=== PATIENT | female | born 1990 | race Caucasian/White ===

== ENCOUNTER 2024-12-07 08:45 | Emergency (ER) | payer OTHER, SELFPAY ==
--- NOTE | ~2024-12-07 | XR_ITS ---
EXAMINATION: XR chest 1V, 12/07/2024 9:28 CDT HISTORY: verify central line placement COMPARISON: No comparisons available. Technique: Single view. Findings: The lungs are clear, no effusion. No pneumothorax. Heart is normal size. Mediastinal and hilar contours are within normal limits. Bony thorax no acute abnormality. Right line terminates in the SVC. Impression: No acute cardiopulmonary abnormality. Reviewed, dictated and finalized at location P. Impression: No acute cardiopulmonary abnormality.
[2024-12-07 08:53] VITALS: BP 96/64; PULSE 80; RESP 16; TEMP 36.8; O2SAT 98
--- OUTSIDE RECORDS SUMMARY | 2024-12-07 08:53 | XMS_ITS | Encounter Summary ---
Author Organization [facility] Address [address] [place] [address] Phone Care Team Providers Care Home Visitor Home Base Head Start Name Role Phone Irina You NP Primary Care Provider [phone] Abi Romo Primary Care Provider [phone] Rich Castillo MD Primary Care Provider [phone] Josefa White RN Unavailable [phone] Encounter Details Date Type Department Care Team (Latest Contact Info) Description 08/09/2016 Orders Only [facility] CONVERSION Scanning, Provider Social History Tobacco Use Types Packs/Day Years Used Date Smoking Tobacco: Never Assessed Comments Unknown Sex and Gender Information Value Date Recorded Sex Assigned at Not on file Legal Sex Female 1:53 AM CDT Gender Identity Not on file Sexual Orientation Not on file documented as of this encounter Plan of Treatment Not on file documented as of this encounter Procedures Procedure Name Priority Date/Time Associated Diagnosis Comments OBSTETRIC/GYNECOLOGY ULTRASONOGRAPHY REPORT 08/09/2016 10:08 AM CDT documented in this encounter Results * OBSTETRIC/GYNECOLOGY ULTRASONOGRAPHY REPORT (08/09/2016 10:08 AM CDT) Anatomical Region Laterality Modality Ultrasound us Provider Scanning IMG OB US PROCEDURES Final Res ult documented in this encounter Visit Diagnoses Not on filedocumented in this encounter Additional Health Concerns Infection Onset Date Last Indicated Resolved Time COVID: Suspected 02/03/2022 02/03/2022 02/03/2022 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
--- OUTSIDE RECORDS SUMMARY | 2024-12-07 08:53 | XMS_ITS ---
Author Organization [facility] Address [address] [place] [address] Care Team Providers Care Grease Refining Supervisor Name Role Phone Rich Castillo MD Primary Care Provider [phone] Home Infusion Status:Closed (Closed) Start date:11/28/2024 Enrollment date:11/28/2024 End date:12/06/2024 Close reason:Transferred to Another Entity Related service episodes:Anti-Infective (Closed) Overview [facility] Continued Care and Services Coordination
--- OUTSIDE RECORDS SUMMARY | 2024-12-07 08:53 | XMS_ITS | Encounter Summary ---
Author Organization [facility] Address [facility] [place] [address] Care Team Providers Care General Helper Name Role Phone Irina You KENZIE Primary Care Provider [phone] Corky Leos MD Unavailable [phone] Encounter Details Date Type Department Care Team (Late st Contact Info) Description 12/15/2018 [facility] at [address] [address] Devan Reyes MA Social History Tobacco Use Types Packs/Day Years Used Date Smoking Tobacco: Every Day Smokeless Tobacco: Never Alcohol Use Standard Drinks/Week Comments No 0 (1 standard drink = 0.6 oz pur e alcohol) AUDIT-C Answer Date Recorded Frequency of Alcohol Consumption Never 03/09/2018 Average Number of Drinks Not on file 019 Frequency of Binge Drinking Not on file 02/21 PHQ-2 Answer Date Recorded PHQ-2 Score 0 05/22/2018 Comments No Sex and Gender Information Value Date Recorded Sex Assigned at Not on file Legal Sex Female 9:27 PM CDT Gender Identity Not on file Sexual Orientation Not on file documented as of this encounter Plan of Treatment Not on file documented as of this encounter Procedures Procedure Name Priority Date/Time Associated Diagnosis Comments CBC (OUTSIDE LAB) Routine 12/14/2018 COMPREHENSIVE METABOLIC PANEL Routine 12/14/2018 LIPID PANEL Routine 12/14/2018 documented in this encounter Results * CBC (OUTSIDE LAB) (12/14/2018) WBC 16.6 HGB 13.1 HCT 43.6 PLT 402 12/14/2018 [facility] Abstract LAB-OUTSIDE/ABSTRACTED Final Result * (ABNORMAL) COMPREHENSIVE METABOLIC PANEL (12/14/2018) SODIUM S/P/B 146 POTASSIUM S/P/B 3.8 CO2 36 CHLORIDE S/P/B 105 GLUCOSE 58 mg/dL CALCIUM S/P/B 11.0 BUN 5 CREATININE S/P/B 1.37(A) 0.5 - 1.0 EGFR NON-AFR. AMER. 46 <=90 ALKALINE PHOSPHATASE S/P/B 130 ALT 31 AST 38 BILIRUBIN TOTAL S/P/B 0.40 ALBUMIN S/P/B 4.2 3.5 - 5.0 TOTAL PROTEIN S/P/B 7.7 GLOBULIN 3.5 12/14/2018 us Doc [facility] Abstract LABORATORY Final Result * LIPID PANEL (12/14/2018) CHOLESTEROL 195 HDL 45 TRIGLYCERIDES 345 LDL (CALCULATED) 81 12/14/2018 us [facility] Abstract LABORATORY Final Result documented in this encounter Visit Diagnoses Not on filedocumented in this encounter Additional Health Concerns Assessment Noted Time PHQ-9 Depression Total Score: 4 08/15/19 19 8:38 AM CDT documented as of this encounter Care Teams General Helper Relationship Specialty Start Date End Date Irina You FNP [address] [place] [id number] PCP - General Nurse Practitioner Family 02/03/18 Corky Leos MD Three [address] [address] Frankie Steel Burner CARDIOVASCULAR DISEASE 11/23/18 documented as of this encounter
--- OUTSIDE RECORDS SUMMARY | 2024-12-07 08:53 | XMS_ITS | Encounter Summary ---
Author Organization [facility] Address [address] [place] [address] Care Team Providers Care Plastic Parts Fabricator Trimmer Name Role Phone Rich Castillo MD Primary Care Provider [phone] Encounter Details Date Type Department Care Team (Late st Contact Info) Description 12/06/2024 Abstract [facility]3] INFECTIOUS DISEASE TOWER [address] [place] [address] Ej Bhatt MD [address] [place] [address] Social History Tobacco Use Types Packs/Day Years Used Date Smoking Tobacco: Former Cigarettes Passive Smoke Exposure: Past Food Insecurity Answer Date Recorded Do you find you are eating l ess than you should because you can t pay for food? No 11/22/2024 Transportation Needs Answer Date Record ed Have you gone without health care because you didn t have a way to get there? Or worry about transportation for future doctor visits, picker machine operator medication, etc.? No 2024 Housing Stability Answer Date Recorded Do you worry you won t have a steady place to sleep or struggle to pay rent or mortgage? No 11/22/2024 Utility Needs Answer Date Recorded Do you have difficulty payin g for utility costs (electric, water or gas bills)? No 11/22/2024 Medication Needs Answer Date Recorded Have you skipped taking medi cation due to cost or worry you can t afford new medications? No 11/22/2024 Feeling Safe Answer Date Recorded Are you in a relationship wi th someone who hurts you emotionally and/or physically? No 11/22/2024 Food Insecurity Answer Date Recorded Patient needs follow up regardin 11/16/2024 Transportation Needs Answer Date Record ed Patient needs follow up regardin 11/16/2024 Utility Needs Answer Date Recorded Patient needs follow up regardin 11/16/2024 Comments No Sex and Gender Information Value Date Recorded Sex Assigned at Not on file Legal Sex Female 7:08 PM CDT Gender Identity Not on file Sexual Orientation Not on file documented as of this encounter Plan of Treatment Upcoming Encounters Date Type Department Care Team (Late st Contact Info) Description 12/25/2024 1:00 PM DECKHAND SPONGE BOAT Office Visit [facility] Gynecologic Oncology Li[address] [facility] [address] [place] [address] Lena Eng, DO [address] [facility] [address] [place] [address] 03/05/2025 10:15 AM DECKHAND SPONGE [employer]AT Office Visit [facility] Oncology and Hematology [facility] [address] [address] [place] [address] [address] documented as of this encounter Visit Diagnoses Not on filedocumented in this encounter Additional Health Concerns Infection Onset Date Last Indicated Resolved Time MRSA 11/20/2024 11/26/2024 documented as of this encounter Care Teams Plastic Parts Fabricator Trimmer Relationship Specialty Start Date End Date Rich Castillo MD [address] [facility] [address] [id number] PCP - General Family Practice 11/16/24 documented as of this encounter
--- OUTSIDE RECORDS SUMMARY | 2024-12-07 08:53 | XMS_ITS ---
Author Organization [facility] Address [address] [place] [address] Care Team Providers Care Director Industrial Nursing Name Role Phone Rich Castillo MD Primary Care Provider [phone] Anti-Infective Status:Closed (Closed) Start date:11/28/2024 Enrollment date:11/28/2024 End date:12/06/2024 Close reason:Transferred to Another Entity Related program episode:Home Infusion (Closed) Overview [facility] Continued Care and Services Coordination
--- OUTSIDE RECORDS SUMMARY | 2024-12-07 08:54 | XMS_ITS | Encounter Summary ---
Author Organization [facility] Address [address] [place] [address] Care Team Providers Care Central Office Operator Name Role Phone Rich Castillo MD Primary Care Provider [phone] Reason for Visit * Reason Onset Date Comments MANUEL Questions 12/04/2024 Encounter Details Date Type Department Care Team (Late st Contact Info) Description 12/04/2024 Telephone [facility] Family Medicine at [address] [place] [address] Rich Castillo MD [address] [place] [address] [address] [place], [place] [id number] MANUEL Questions Social History Tobacco Use Types Packs/Day Years Used Date Smoking Tobacco: Every Day Cigarettes Smokeless Tobacco: Never Comments:trying to quit Alcohol Use Standard Drinks/Week Comments Never 0 (1 standard drink = 0.6 oz pur e alcohol) Social Connection and Isolation Panel Answer Date Recorded In a typical week, how many times do you talk on the phone with family, friends, or neighbors? More than three times a week 02/11/2022 How often do you get togethe r with friends or relatives? More than three times a week 02/11/2022 How often do you attend chur ch or yazidi services? Never 02/11/2022 Do you belong to any clubs o r organizations such as faith groups, unions, fraternal or athletic groups, or school groups? No 02/11/2022 How often do you attend meet ings of the clubs or organizations you belong to? Never 02/11/2022 Are you , , di vorced, , never , or living with a partner? Never 02/11/2022 AUDIT-C Answer Date Recorded Q1: How often do you have a drink containing alcohol? Never 08/29/2024 Q2: How many drinks containi ng alcohol do you have on a typical day when you are drinking? Patient does not drink Frequency of Binge Drinking Not on file 10/2024 Overall Financial Resource Strain (CARDIA) Answe r Date Recorded How hard is it for you to pa y for the very basics like food, housing, medical care, and heating? Somewhat hard 02/11/2022 PHQ-2 Answer Date Recorded PHQ-2 Total Score (If total score is 3 or more points, staff should administer the PHQ-9) 0 11/07/2024 Hunger Vital Sign Answer Date Recorded Within the past 12 months, y ou worried that your food would run out before you got the money to buy more. Sometimes true Within the past 12 months, t he food you bought just didn't last and you didn't have money to get more. Never true PRAPARE - Transportation Answer Date Re corded In the past 12 months, has l ack of transportation kept you from medical appointments or from getting medications? No 01/22 In the past 12 months, has l ack of transportation kept you from meetings, work, or from getting things needed for daily living? No 02/11/2022 Housing Stability Vital Sign Answer Roberto e Recorded In the last 12 months, was t here a time when you were not able to pay the mortgage or rent on time? No 02/11/2022 In the last 12 months, how many places have you lived? 1 02/11/2022 In the last 12 months, was t here a time when you did not have a steady place to sleep or slept in a longterm (including now)? No 02/11/2022 Comments No Sex and Gender Information Value Date Recorded Sex Assigned at Not on file Legal Sex Female 1:53 AM CDT Gender Identity Not on file Sexual Orientation Not on file documented as of this encounter Miscellaneous Notes * Telephone Encounter - Chelsi Pena - 12/04/2024 2:10 PM CDT MANUEL Questions (Message from [facility] Has patient been discharged at time of call? Yes Date Admitted: 11/15 Date Discharged: 12/04 Facility Admitted To: [facility] Reason for Stay? Low platelets If prescribed new medications, do you have any questions or concerns? no Do you have enough medication to get you to your follow-up appointment? yes Since being released do you feel better, the same, or worse? better Date of MANUEL Appointment: 12/11 Do you have transportation to the appointment? yes Additional Comments: n/a Does message need to be routed? No documented in this encounter Plan of Treatment Not on file documented as of this encounter Visit Diagnoses Not on filedocumented in this encounter Care Teams Central Office Operator Relationship Specialty Start Date End Date Rich Castillo MD PCP - General Family Medicine 12/14/21 documented as of this encounter
--- OUTSIDE RECORDS SUMMARY | 2024-12-07 08:54 | XMS_ITS | Clinical Summary ---
Author Organization [facility] Address [address] [place] [address] Care Team Providers Care Geophysical E Logger Name Role Phone Irina You KENZIE Primary Care Provider [phone] Corky Leos MD Unavailable [phone] Allergies Active Allergy Reactions Criticality Noted Date Comments Levofloxacin Unknown,Rash Low 07/15/2016 Reaction: RASH, Penicillins Rash,Unknown,Swelling High 05/09/2014 Reaction: SWELLING, Medications ONETOUCH DELICA LANCETS FINE Misc USE TO TEST BID 6 0 18 Active nystatin powder Apply topically 3 (three) times daily. 11/20/19 17 Active hydrocortisone 5 MG tablet Take 3 tablets (15 mg total) by mouth every morning AND 1 tablet (5 mg total) 3 (three) times daily before meals. 6 05/11/19 19 Active Blood Glucose Calibration (EASY TALK CONTROL) Low Solution 06/06/19 19 Active BASAGLAR KWIKPEN 100 UNIT/ML injection (PEN) Inject 14 Units into the skin 2 (two) times daily. 3 pen 2 08/15/19 19 Active ammonium lactate 12 % lotion RUB IN TWO APPLICATIONS EXT AA QD PRN 3 08/29/19 19 Active triamcinolone 0.1 % ointmentIndication s:Atopic dermatitis, unspecified type Apply topically 2 (two) times daily. 30 g 2 09/28/19 19 Active FLUARIX QUADRIVALENT 0.5 ML injection Inject 0.5 mLs into the muscle. 0 10/04/19 19 Active venlafaxine XR 37.5 MG 24 hr capsule Take 1 capsule (37.5 mg total) by mouth daily. 12/07/19 Active RANITIDINE 300 MG tabletIndications: Gastroesophageal reflux disease, esophagitis presence not specified TAKE 1 TABLET(300 MG) BY MOUTH DAILY 90 tablet 1 02/26/19 20 Active BD PEN NEEDLE LILY U/F 32G X 4 MM MiscIndications:Di abetes insipidus (HHS/HCC) USE WITH INSULIN INJECTION HS 100 each 3 07/05/19 Active Isopropyl Alcohol (ALCOHOL WIPES) 70 % MiscIndications:Di abetes insipidus (HHS/HCC) Apply 1 Application topically 4 (four) times a day. 270 each 3 07/05/19 Active triamterene-hydroC HLOROthiazide 37.5-25 MG tablet Take 1 tablet by mouth daily. 08/06/19 Active levothyroxine 100 MCG tablet Take 100 mcg by mouth every morning. 08/01/19 Active Alcohol Swabs (EASY TOUCH ALCOHOL PREP MEDIUM) 70 % Pads 4 (four) times daily. 07/05/19 Active gabapentin 800 MG tabletIndications: Neuropathy Take 1 tablet (800 mg total) by mouth 3 (three) times daily. 90 tablet 1 09/06/19 20 Active fish oil 1000 MG Cap capsule Take 1,000 mg by mouth daily. Active vitamin D3, cholecalciferol, 1000 UNIT Tab tablet Take 1 tablet by mouth daily. Active vitamin B-12 (CYANOCOBALAMIN) 1000 mcg tablet Take 1,000 mcg by mouth daily. Active FENOFIBRATE 160 MG tabletIndications: Mixed hyperlipidemia Take 1 tablet by mouth every day 30 tablet 11 10/22/19 20 Active atorvastatin 40 MG tabletIndications: Hyperlipidemia Take 1 tablet (40 mg total) by mouth nightly at bedtime. 90 tablet 3 01/08/20 20 Active gabapentin 600 MG tablet 12/16/19 20 Active triamcinolone 0.1 % cream APPLY TO THE BOTTOM OF THE FEET IN THE EVENING 11/22/19 20 Active AMITRIPTYLINE 50 MG tabletIndications: Paresthesia of both legs Take 1 tablet by mouth at bedtime 30 tablet 1 06/07/19 21 Active GLIMEPIRIDE 4 MG tabletIndications: Type 2 diabetes mellitus with diabetic polyneuropathy, without long-term current use of insulin ([facility]/HCC HHS/HCC) Take 1 tablet by mouth daily before breakfast 30 tablet 11 07/15/19 Active ONE TOUCH ULTRA 2 w/Device KitIndications:Typ e 2 diabetes mellitus with diabetic polyneuropathy, without long-term current use of insulin ([facility]) USE TO TEST ONCE EVERY DAY 1 kit 01/23/20 Active Active Problems Problem Noted Date Diagnosed Date Hypercalcemia 10/10/2019 Vitamin B 12 deficiency 09/06/2019 Neuropathy 09/06/2019 Callus of foot 07/05/2019 Non compliance with medical treatment 07/05/2019 Non-compliant patient 07/05/2019 Atopic dermatitis, unspecified type 09/27/2018 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 Menopause 03/09/2018 Secondary adrenal insufficiency 03/09/2018 Hypopituitarism 03/09/2018 Hyperlipidemia 08/23/2017 Malignant tumor of pituitary gland 01/17/2017 Type 2 diabetes mellitus 01/12/2017 Postmenopausal HRT (hormone replacement therapy) 01/12/2017 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 Graham Dating: PNL: O+/I/?/-, HIV NR (Needs HepB surface antigen testing) Pap: neg (03/24/14) GC/CT: neg/neg Urine cx: neg UDS: neg H/H/P: 11.1/32.8/414 on 04/19/14 Hgb solubility: neg Genetics: Anatomy US: GCT: 141 GTT: 77/210/192/161 GBS: neg (04/02/14) Tdap: Flu shot: Breast/Bottle: Contraception: Tobacco use 05/09/2014 Overview (03/09/2018): Overview: Smoking 1/2 ppd for last 2 years Vitamin D deficiency 05/09/2014 Overview (03/09/2018): Overview: Vitamin D, 25-hydroxy 6.1 on 04/02/14; normal range 30-100 Resolved Problems Problem Noted Date Diagnosed Date Resolved Date Hypertriglyceridemia 05/10/2018 020 Pituitary adenoma 03/09/2018 10/10/2019 Secondary hypocortisolism 11/19/2016 Hypothyroidism 07/22/2016 10/10/2019 Gestational diabetes 05/09/2014 020 Overview (03/09/2018): Overview: GCT: 141 GTT: 77/210/192/161 HgbA1c: 5.6 on 04/02/14 Immunizations Immunization Administration Dates Next Due Dtp 12/10/1994, 2,09/24/1990,1990,01/28/1990 Fluarix (IIV4) 10/03/2018 Fluzone 6 Months+ Quad (0.5 mL Prefilled Syringe) 12/12/2016 Hepatitis B 04/15/2003,11/23/2002,10/24/2002 Hib (Generic) 05/08/1991,09/26/1990,04/20/1990 IPV/OPV 12/10/1994,08/06/1991 Influenza Adult (Generic) 02/02/2018,12/12/2016 MMR 12/10/1994,05/08/1991 Opv 04/20/1990,01/28/1990 Tdap (Adacel) 05/29/2014 Tdap (Boostrix) 04/18/2014 Family History Medical History Relation Comments No Known Problems Father Blood Disease Mother Diabetes Paternal Aunt Diabetes Paternal Uncle Relation Status Comments Father Alive Mother Alive Paternal Aunt Paternal Uncle Alive Social History Tobacco Use Types Packs/Day Years Used Date Smoking Tobacco: Every Day Cigarettes 1 4 Smokeless Tobacco: Never Alcohol Use Standard Drinks/Week Comments No 0 (1 standard drink = 0.6 oz pur e alcohol) AUDIT-C Answer Date Recorded Frequency of Alcohol Consumption Never 03/09/2018 Average Number of Drinks Not on file 019 Frequency of Binge Drinking Not on file 02/21 PHQ-2 Answer Date Recorded PHQ-2 Score - If the patient scores above 3, please move on to questions 3-9 0 10/10/2019 Comments No Sex and Gender Information Value Date Recorded Sex Assigned at Not on file Legal Sex Female 9:27 PM CDT Gender Identity Not on file Sexual Orientation Not on file Last Filed Vital Signs Vital Sign Reading Time Taken Comments Blood Pressure 118/76 10/10/2019 10:01 AM CDT Pulse 73 10/10/2019 10:01 AM CDT Temperature 36 C (96.8 F) 10/10/2019 10:01 AM CDT Respiratory Rate 20 10/10/2019 10:0 1 AM CDT Oxygen Saturation 95% 10/10/2019 10: 01 AM CDT Inhaled Oxygen Concentration - - Weight 83.8 kg (184 lb 12.8 oz) 020 10:01 AM CDT Height 152.4 cm (5') 10/10/2019 10:01 AM CDT Body Mass Index 36.09 10/10/2019 10:01 AM CDT Plan of Treatment Health Maintenance Due Date Last Done Comments Cervical Cancer Screening Pap Smear (Age 30 to 64) Every 3 Years 1989 Kidney Health Evaluation 1989 Annual Physical 1992 Diabetes: Retinopathy Eye Exam 11/16/2007 Hepatitis C 11/16/2007 Pneumococcal Vaccine: Pediatrics (0 to 5 Years) and At-Risk Patients (6 to 49 Years) (1 of 2 - PCV) 2008 HPV Vaccines (1 - 3-dose SCDM series) 2016 Cervical Cancer Screening Pap with HPV Testing (Age 30 to 64) Every 5 Years 11/16/2019 Cervical Cancer Screening with HPV 11/16/2019 Hemoglobin A1C 04/11/2020 10/10/2019, 06/21, 08/14/2018 Lipid Panel 09/05/2020 09/06/2019, 06/21, 07/05/2019, Additional history exists DTaP, Tdap and Td Vaccines (3 - Td or Tdap) 05/29/2024 05/29/2014, 04/18/2014, 12/10/1994, Additional history exists COVID-19 Vaccine ( season) 2024 Influenza Adult (#1) 2024 12/06/2018, 10/03/2018, 02/02/2018, Additional history exists Hepatitis B Vaccines Completed 04/15/2003, 11/23/2002, 10/24/2002 Meningococcal B Vaccine Aged Out No l onger eligible based on patient's age to complete this topic Meningococcal Vaccine Aged Out No jennifer saurav eligible based on patient's age to complete this topic RSV Immunizations Under 20 Months Aged Out No longer eligible based on patient's age to complete this topic Procedures Procedure Name Priority Date/Time Associated Diagnosis Comments HEMOGLOBIN, GLYCOSYLATED Routine 10/10/2019 10:05 AM CDT Type 2 diabetes mellitus with diabetic polyneuropathy, without long-term current use of insulin LIPID PANEL Routine 09/06/2019 11:03 AM CDT Mixed hyperlipidemia from Last 3 Months or Most Recently Relevant to Health Maintenance Results * HEMOGLOBIN, GLYCOSYLATED (10/10/2019 10:05 AM CDT) HGB A1C 11.1 % -[facility] (3), [facility] 10/10/2019 10:0 5 AM CDT Logan Reid MD LABORATORY Final Result [facility] ([facility]), [facility] [address] [place] [address], * (ABNORMAL) LIPID PANEL (09/06/2019 11:03 AM CDT) CHOLESTEROL 351(H) <200 MG/DL 09/06/2019 7:44 PM CDT [facility] TRIGLYCERIDES 326(H) <150 MG/DL 09/06/2019 7:44 PM CDT [facility] HDL 37(L) >40.0 MG/DL 09/06/2019 7:44 PM CDT [facility] LDL (CALCULATED) 249(H) <100 MG/DL 09/06/2019 7:44 PM CDT [facility] NON HDL CHOLESTEROL 314(H) <130 MG/DL 09/06/2019 7:44 PM CDT [facility] CHOL/HDL RATIO 9.5(H) 0.0 - 4.5 09/06/2019 7:44 PM CDT [facility] VLDL CALCULATION 65(H) 5 - 55 MG/DL 09/06/2019 7:44 PM CDT [facility] LIPID INTERPRETATION 09/06/2019 7:44 PM T [facility] Comment: [facility] CONCENSUS REPORT RECOMMENDATIONS: ADULT CHILD LOW RISK: CHOLESTEROL <200 <170 TRIGLYCERIDE <150 --- HDL >=60 --- LDL <100 <110 BORDERLINE: CHOLESTEROL 200-239 170-199 TRIGLYCERIDE 150-199 --- HDL 40-59 --- LDL 100-159 110-129 HIGH RISK: CHOLESTEROL >=240 >=200 TRIGLYCERIDE >=200 --- HDL <40 --- LDL >=160 >=130 09/06/2019 11:0 3 AM CDT Irina You FISHING REEL ASSEMBLER LABORATORY Final Result [facility] [address] [id number], from Last 3 Months or Most Recently Relevant to Health Maintenance Insurance [employer] Care Teams Geophysical E Logger Relationship Specialty Start Date End Date Irina You FNP [address] [place] [phone] PCP - General Nurse Practitioner Family 02/03/18 Corky Leos MD [facility] [address] [place] [address] [place] Cutter Tender CARDIOVASCULAR DISEASE 11/23/18
--- OUTSIDE RECORDS SUMMARY | 2024-12-07 08:54 | XMS_ITS | Encounter Summary ---
Author Organization [facility] Address [address] [place] [address] Care Team Providers Care Clinical Program Director Name Role Phone Irina You NP Primary Care Provider [phone] Abi Romo Primary Care Provider [phone] Rich Castillo MD Primary Care Provider Josefa White RN Unavailable [phone] Encounter Details Date Type Department Care Team (Late st Contact Info) Description 09/11/2019 Telephone [facility] [place] [address] Clark Blanco MD [address] [place], [place] [id number] Social History Tobacco Use Types Packs/Day Years Used Date Smoking Tobacco: Former Comments Unknown Sex and Gender Information Value [...] COVID: Suspected 02/03/2022 02/03/2022 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
--- OUTSIDE RECORDS SUMMARY | 2024-12-07 08:54 | XMS_ITS | Clinical Summary ---
Author Organization [facility] Address [address] [place] [address] Care Team Providers Care [facility] Owner Name Role Phone Irina You APRN-PALOMO Primary Care Provider [phone] Source Comments [facility],non-owned Affiliates and Associated Physician Practices is amultiple site organization consisting of ambulatory clinics and hospital sitesin [place], [place], [place]. This disclosure is being madepursuant to the Care Everywhere program and may not contain all information available regarding this patient. Last updated 17.[facility] Allergies Active Allergy Reactions Criticality Noted Date Comments Penicillins Rash Low 05/09/2014 Medications * Be aware that medications may not be up to date on this document. Alwaysverify current medications with the patient. Vit-Fe Fumarate-FA ( PLUS) 27-1 MG tablet Take 1 Tab by mouth once daily. Active Active Problems Patient Care Coordination No te Formatting of this note migh t be different from the original. [facility] 2014 Problem Noted Date Diagnosed Date Supervision of high-risk 05/09/2014 Overview (05/09/2014): Consult from Dr. Graham Dating: PNL: O+/I/?/-, HIV NR (Needs HepB surface antigen testing) Pap: neg (03/24/14) GC/CT: neg/neg Urine cx: neg UDS: neg H/H/P: 11.1/32.8/414 on 04/19/14 Hgb solubility: neg Genetics: Anatomy US: GCT: 141 GTT: 77/210/192/161 GBS: neg (04/02/14) Tdap: Flu shot: Breast/Bottle: Contraception: Gestational diabetes 05/09/2014 Overview (05/09/2014): GCT: 141 GTT: 77/210/192/161 HgbA1c: 5.6 on 04/02/14 Vitamin D deficiency 05/09/2014 Overview (05/09/2014): Vitamin D, 25-hydroxy 6.1 on 04/02/14; normal range 30-100 Tobacco use 05/09/2014 Overview (05/09/2014): Smoking 1/2 ppd for last 2 years Ovarian cyst, left 05/09/2014 Overview (05/09/2014): Large complex cyst measuring 17 x 10 x 9 mm on 04/08/14 US Late care 05/09/2014 Family History Medical History Relation Name Comments Diabetes Maternal Aunt Diabetes Paternal Aunt Relation Name Status Comments Maternal Aunt Paternal Aunt Social History Tobacco Use Types Packs/Day Years Used Date Smoking Tobacco: Every Day Cigarettes 0.5 12.8 Started: 02/22/2012 Smokeless Tobacco: Never Alcohol Use Standard Drinks/Week Comments No 0 (1 standard drink = 0.6 oz pur e alcohol) Comments No Sex and Gender Information Value Date Recorded Sex Assigned at Not on file 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 Gender Identity Not on file Sexual Orientation Not on file Plan of Treatment Health Maintenance Due Date Last Done Comments HIV SCREENING 2004 HEPATITIS C SCREENING 11/11/2007 DTAP/TDAP/TD VACCINES (1 - Tdap) 2008 HEPATITIS B VACCINE (1 of 3 - 19+ 3-dose series) 2008 PNEUMOCOCCAL VACCINE (1 of 2 - PCV) 2008 PAP SMEAR 2010 HPV VACCINE (1 - 3-dose SCDM series) 2016 DEPRESSION SCREENING 02/22/2024 COVID-19 VACCINE (1 - 2023-2 5 season) 2024 INFLUENZA VACCINE (#1) 2024 ZOSTER VACCINE (1 of 2) 11/16/2039 HIB VACCINE Aged Out No longer eligi ble based on patient's age to complete this topic MENINGOCOCCAL (Group B) VACC INE SHARED DECISION-MAKING Aged Out No longer eligibl e based on patient's age to complete this topic MENINGOCOCCAL GROUPS A/C/Y/W VACCINE Aged Out No longer eligible b ased on patient's age to complete this topic Insurance MEDICAID - [place] Care Teams [facility] Owner Relationship Specialty Start Date End Date Irina You APRN-CNP [address] [place] [address] PCP - General 06/15/19
--- OUTSIDE RECORDS SUMMARY | 2024-12-07 08:54 | XMS_ITS | Clinical Summary ---
Author Organization [facility] Address [address] [place] [address] Phone Care Team Providers Care Educational Therapy Teacher Name Role Phone Rich Castillo MD Primary Care Provider [phone] Allergies Active Allergy Reactions Criticality Noted Date Comments Levofloxacin Rash Low 11/16/2024 Medications gabapentin (NEURONTIN) 600 mg tablet Take 600 mg by mouth 3 times daily. Active levothyroxine 88 mcg tablet Take 88 mcg by mouth daily in the morning. Active atorvastatin (LIPITOR) 20 mg tablet Take 20 mg by mouth daily. Active hydrocortisone (CORTEF) 5 mg Tablet TAKE 2 TABLETS BY MOUTH EVERY MORNING AND 1 TABLET BY MOUTH EVERY NIGHT AT BEDTIME 5 Active desmopressin (DDAVP) 0.2 mg Tablet Take 1 Tablet (0.2 mg) by mouth 3 times daily. 90 Tablet 12/04/2024 11:44 AM CDT 5 Active apixaban (ELIQUIS) 5 mg tablet Take 1 Tablet (5 mg) by mouth 2 times daily. 60 Tablet 2 12/04/2024 11:44 AM CDT 5 Active pantoprazole (PROTONIX) 40 mg Tablet, Delayed Release (E.C.) Take 1 Tablet (40 mg) by mouth daily before breakfast. 30 Tablet 12/04/2024 11:44 AM CDT 5 Active predniSONE (DELTASONE) 20 mg tablet Take 1 Tablet (20 mg) by mouth daily with breakfast for 3 days, THEN 0.5 Tablet (10 mg) daily with breakfast for 7 days. 7 Tablet 12/04/2024 11:44 AM CDT 5 12/15/19 25 Active saccharomyces boulardii (FLORASTOR) 250 mg Capsule Take 1 Capsule (250 mg) by mouth 2 times daily. 60 Capsule 12/04/2024 11:44 AM CDT Active multivitamin with folic acid (Therems Multivitamin) 400 mcg Tablet tablet Starting 12/05: Take 1 Tablet by mouth daily. 30 Tablet 12/04/2024 11:44 AM CDT Active DAPTOmycin (CUBICIN) 345 mg for home infusion Inject 1 Dose by intravenous injection every 24 hours for 34 days. 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 Secondary adrenal insufficiency 11/16/2024 DI (diabetes insipidus) 11/16/2024 Resolved Problems Problem Noted Date Diagnosed Date Resolved Date MRSA bacteremia 11/22/2024 12/04/2024 Phlebitis 11/22/2024 12/04/2024 Acute cystitis without hematuria 11/21/2024 12/04/2024 Abnormal finding on urinalysis 11/20/2024 12/04/2024 Acute blood loss anemia 11/17/202411/21 Thrombocytopenia 11/16/2024 12/04/2024 Encounters Date Type Department Care Team Description 12/06/2024 Abstract [facility] INFECTIOUS DISEASE [place] [address] [place] [phone] Ej Bhatt MD 12/05/2024 Telephone [facility] DISE[facility] [place] [facility] [address] [place] [address] Ej Bhatt MD Medication Question 12/04/2024 External Device Data STL ABSTRACTION Provider, Abstract 12/04/2024 Orders Only [facility] Oncology and Hematology [address] [place] [address] Lulú Rodriguez MD Acute deep vein thrombosis (DVT) of axillary vein of right upper extremity (Primary Dx) 11/27/2024 External Device Data ST[facility] ABSTRACTION Provider, Abstract 11/23/2024 Results Follow-Up [facility] [address] [place] [address] Eusebio Olson PHARMACIST VANCOMYCIN LEVEL TROUGH, BONE MARROW ASPIRATION & BIOPSY 11/22/2024 Travel 11/20/2024 3:00 PM CDT Anesthesia Event [facility] Interventional Radiology S [facility] [address] [place] [address] Herrera Zhang MD 11/20/2024 External Device Data ST[facility] ABSTRACTION Provider, Abstract 11/20/2024 External Device Data [facility] ABSTRACTION Provider, Abstract 11/20/2024 External Device Data [facility] ABSTRACTION Provider, Abstract 2024 11:13 PM CDT - 12/04/2024 1:04 PM CDT Hospital En[facility] [address] [place] [address] Nelson Schroeder MD Nguyen, Steven, MD Bockerstett, Jennifer E, DO Gojenny, MD [facility], Thrombocytopenia Discharge Disposition: Home or Self Care from Last 3 Months Social History Tobacco Use Types Packs/Day Years Used Date Smoking Tobacco: Former Cigarettes Passive Smoke Exposure: Past Tobacco Cessation:Counseling Given: Not Answered Food Insecurity Answer Date Recorded Do you find you are eating l ess than you should because you can t pay for food? No 11/22/2024 Transportation Needs Answer Date Record ed Have you gone without health care because you didn t have a way to get there? Or worry about transportation for future doctor visits, orange picker medication, etc.? No 2024 Housing Stability Answer [...] Sign Reading Time Taken Comments Blood Pressure 112/69 12/04/2024 8:07 AM CDT Pulse 81 12/04/2024 11:35 AM CDT Temperature 37.3 C (99.1 F) 12/04/2024 8:07 AM CDT Respiratory Rate 18 12/04/2024 11:35 AM CDT Oxygen Saturation 92% 12/04/2024 11:35 AM CDT Inhaled Oxygen Concentration - - Weight 57.2 kg (126 lb) 12/04/2024 5:07 AM CDT Height 149.9 cm (4' 11) 12/02/2024 2:31 AM CDT Body Mass Index 25.45 12/02/2024 2:31 AM CDT Plan of Treatment Upcoming Encounters Date Type Department Care Team (Late st Contact Info) Description 12/25/2024 1:00 PM WHEEL GRINDER Office Visit [facility] Gynecologic Oncology [place] [address] [place] [address] Lena Eng DO [address] [place] [address] 03/05/2025 10:15 AM WHEEL GRINDER Office Visit [facility] Oncology and Hematology [place] [address] [facility] [address] [address] Lulú [place] [address] [facility] [address] [place] [address] Health Maintenance Due Date Last Done Comments DIABETES ANNUAL FOOT EXAM 11/16/2007 DIABETES ANNUAL RETINAL EXAM 11/16/2007 DIABETES MICROALBUMIN ANNUAL SCREEN 11/16/2007 LDL CHOLESTEROL ANNUAL 11/16/2007 HPV/Cotest (21-29) 2010 HPV VACCINES (1 - 3-dose SCD M series) 2016 CERVICAL CANCER SCREENING 11/16/2019 HPV/Cotest (30-65) 11/16/2019 PAP SMEAR 11/16/2019 DTAP/TDAP/TD VACCINES (8 - T d or Tdap) 05/29/2024 05/29/2014, 04/18/2014, 12/10/1994, Additional history exists INFLUENZA VACCINE (#1) 2024 , 04/22/2021, 12/06/2018, Additional history exists DIABETES HBA1C Q 6 MONTHS 05/16/20252024, 07/26/2024, 02/01/2024, Additional history exists Preventative Visit-Managed Medicaid 08/30/2025 08/29/2024 HEPATITIS B VACCINES Completed 04/15/2003, 11/23/2002, 10/24/2002 Procedures Procedure Name Priority Date/Time Associated Diagnosis Comments TELEMETRY REPORT 12/05/2024 5:28 PM CDT TELEMETRY REPORT 12/05/2024 5:28 PM CDT POC GLUCOSE Routine 12/04/2024 8:12 AM CDT DIFFERENTIAL, MANUAL Routine 12/04/2024 5:00 AM CDT CBC WITH DIFFERENTIAL Routine 12/04/2024 5:00 AM CDT BASIC METABOLIC PANEL Routine 12/04/2024 5:00 AM CDT POC GLUCOSE Routine 12/04/2024 2:57 AM CDT POC GLUCOSE Routine 12/03/2024 8:36 PM CDT POC GLUCOSE Routine 12/03/2024 5:35 PM CDT POC GLUCOSE Routine 12/03/2024 12:13 PM CDT IR VENOUS ACCESS Pending Discharge 12/03/2024 10:29 AM CDT POC GLUCOSE Routine 12/03/2024 8:13 AM CDT POC GLUCOSE Routine 12/03/2024 4:14 AM CDT CBC WITH DIFFERENTIAL Routine 12/03/2024 1:41 AM CDT BASIC METABOLIC PANEL Routine 12/03/2024 1:41 AM CDT POC GLUCOSE Routine 12/03/2024 12:19 AM CDT POC GLUCOSE Routine 12/02/2024 9:13 PM CDT POC GLUCOSE Routine 12/02/2024 5:10 PM CDT POC GLUCOSE Routine 12/02/2024 12:16 PM CDT POC GLUCOSE Routine 12/02/2024 11:38 AM CDT POC GLUCOSE Routine 12/02/2024 11:01 AM CDT POC GLUCOSE Routine 12/02/2024 10:31 AM CDT POC GLUCOSE Routine 12/02/2024 10:10 AM CDT CBC WITH DIFFERENTIAL Routine 12/02/2024 1:37 AM CDT BASIC METABOLIC PANEL Routine 12/02/2024 1:37 AM CDT POC GLUCOSE Routine 12/01/2024 11:53 PM CDT POC GLUCOSE Routine 12/01/2024 6:07 PM CDT POC GLUCOSE Routine 12/01/2024 12:42 PM CDT POC GLUCOSE Routine 12/01/2024 8:31 AM CDT POC GLUCOSE Routine 12/01/2024 2:12 AM CDT CBC WITH DIFFERENTIAL Routine 12/01/2024 1:30 AM CDT BASIC METABOLIC PANEL Routine 12/01/2024 1:30 AM CDT POC GLUCOSE Routine 11/30/2024 9:04 PM CDT POC GLUCOSE Routine 11/30/2024 6:28 PM CDT TRANSFUSE PACKED RED BLOOD CELLS Routine 11/30/2024 1:57 PM CDT POC GLUCOSE Routine 11/30/2024 1:04 PM CDT TYPE AND SCREEN Routine 11/30/2024 11:29 AM CDT POC GLUCOSE Routine 11/30/2024 8:10 AM CDT PREPARE RED BLOOD CELLS Routine 11/30/2024 7:13 AM CDT DIFFERENTIAL, MANUAL Routine 11/30/2024 6:14 AM CDT CBC WITH DIFFERENTIAL Routine 11/30/2024 6:14 AM CDT BASIC METABOLIC PANEL Routine 11/30/2024 6:14 AM CDT POC GLUCOSE Routine 11/29/2024 10:35 PM CDT POC GLUCOSE Routine 11/29/2024 6:14 PM CDT POC GLUCOSE Routine 11/29/2024 1:26 PM CDT POC GLUCOSE Routine 11/29/2024 7:03 AM CDT DIFFERENTIAL, MANUAL Routine 11/29/2024 5:53 AM CDT CBC WITH DIFFERENTIAL Routine 11/29/2024 5:53 AM CDT BASIC METABOLIC PANEL Routine 11/29/2024 5:53 AM CDT BLOOD CULTURE Routine 11/29/2024 5:53 AM CDT BLOOD CULTURE Routine 11/29/2024 5:53 AM CDT BLOOD CULTURE Routine 11/29/2024 5:53 AM CDT BLOOD CULTURE Routine 11/29/2024 5:53 AM CDT POC GLUCOSE Routine 11/29/2024 5:51 AM CDT POC GLUCOSE Routine 11/29/2024 2:13 AM CDT POC GLUCOSE Routine 11/29/2024 12:17 AM CDT POC GLUCOSE Routine 11/28/2024 10:49 PM CDT POC GLUCOSE Routine 11/28/2024 6:26 PM CDT POC GLUCOSE Routine 11/28/2024 12:57 PM CDT POC GLUCOSE Routine 11/28/2024 10:21 AM CDT CK Routine 11/28/2024 3:27 AM CDT C-REACTIVE PROTEIN Routine 11/28/2024 3: 27 AM CDT DIFFERENTIAL, MANUAL Routine 11/28/2024 3:27 AM CDT CBC WITH DIFFERENTIAL Routine 11/28/2024 3:27 AM CDT BASIC METABOLIC PANEL Routine 11/28/2024 3:27 AM CDT POC GLUCOSE Routine 11/27/2024 8:43 PM CDT POC GLUCOSE Routine 11/27/2024 5:31 PM CDT POC GLUCOSE Routine 11/27/2024 1:45 PM CDT TELEMETRY REPORT 11/27/2024 12:0 2 PM CDT POC GLUCOSE Routine 11/27/2024 10:30 AM CDT POC GLUCOSE Routine 11/27/2024 9:54 AM CDT CBC WITH DIFFERENTIAL Routine 11/27/2024 5:31 AM CDT BASIC METABOLIC PANEL Routine 11/27/2024 5:31 AM CDT POC GLUCOSE Routine 11/26/2024 10:50 PM CDT POC GLUCOSE Routine 11/26/2024 6:56 PM CDT POC GLUCOSE Routine 11/26/2024 5:41 PM CDT US EXT NON VASC LTD RT Stat 11/26/2024 4:36 PM CDT POC GLUCOSE Routine 11/26/2024 11:40 AM CDT POC GLUCOSE Routine 11/26/2024 10:36 AM CDT BLOOD CULTURE Routine 11/26/2024 2:15 AM CDT BLOOD CULTURE Routine 11/26/2024 2:15 AM CDT DIFFERENTIAL, MANUAL Routine 11/26/2024 2:14 AM CDT CBC WITH DIFFERENTIAL Routine 11/26/2024 2:14 AM CDT BASIC METABOLIC PANEL Routine 11/26/2024 2:14 AM CDT BLOOD CULTURE Routine 11/26/2024 2:06 AM CDT BLOOD CULTURE Routine 11/26/2024 2:06 AM CDT MRI THORACIC LUM W WO CONT Routine 11/26/2024 12:27 AM CDT POC GLUCOSE Routine 11/25/2024 8:48 PM CDT VANCOMYCIN LEVEL TROUGH Timed Study 11/25/2024 7:45 PM CDT POC GLUCOSE Routine 11/25/2024 5:34 PM CDT POC GLUCOSE Routine 11/25/2024 1:31 PM CDT BLOOD CULTURE Routine 11/25/2024 11:44 AM CDT BLOOD CULTURE Routine 11/25/2024 11:44 AM CDT POC GLUCOSE Routine 11/25/2024 9:22 AM CDT POC GLUCOSE Routine 11/25/2024 9:19 AM CDT BLOOD CULTURE Routine 11/25/2024 8:46 AM CDT BLOOD CULTURE Routine 11/25/2024 8:46 AM CDT DIFFERENTIAL, MANUAL Routine 11/25/2024 2:35 AM CDT CBC WITH DIFFERENTIAL Routine 11/25/2024 2:35 AM CDT BASIC METABOLIC PANEL Routine 11/25/2024 2:35 AM CDT POC GLUCOSE Routine 11/25/2024 1:00 AM CDT POC GLUCOSE Routine 11/24/2024 10:45 PM CDT POC GLUCOSE Routine 11/24/2024 9:01 PM CDT POC GLUCOSE Routine 11/24/2024 4:36 PM CDT POC GLUCOSE Routine 11/24/2024 1:37 PM CDT POC GLUCOSE Routine 11/24/2024 8:44 AM CDT CBC WITH DIFFERENTIAL Routine 11/24/2024 2:36 AM CDT BASIC METABOLIC PANEL Routine 11/24/2024 2:36 AM CDT POC GLUCOSE Routine 11/23/2024 10:27 PM CDT POC GLUCOSE Routine 11/23/2024 6:11 PM CDT VANCOMYCIN LEVEL TROUGH Timed Study 11/23/2024 4:25 PM CDT POC GLUCOSE Routine 11/23/2024 2:35 PM CDT PTT Routine 11/23/2024 11:20 AM CDT ECHO COMPLETE Routine 11/23/2024 9:52 AM CDT US DOPPLER VENOUS ARM BILATERAL Routine 11/23/2024 9:09 AM CDT POC GLUCOSE Routine 11/23/2024 7:42 AM CDT POC GLUCOSE Routine 11/23/2024 3:07 AM CDT CBC WITH DIFFERENTIAL Routine 11/23/2024 1:42 AM CDT BASIC METABOLIC PANEL Routine 11/23/2024 1:42 AM CDT BLOOD CULTURE Routine 11/23/2024 1:42 AM CDT BLOOD CULTURE Routine 11/23/2024 1:42 AM CDT BLOOD CULTURE Routine 11/23/2024 1:42 AM CDT BLOOD CULTURE Routine 11/23/2024 1:42 AM CDT POC GLUCOSE Routine 11/22/2024 11:20 PM CDT POC GLUCOSE Routine 11/22/2024 10:34 PM CDT POC GLUCOSE Routine 11/22/2024 5:16 PM CDT POC GLUCOSE Routine 11/22/2024 12:50 PM CDT POC GLUCOSE Routine 11/22/2024 8:27 AM CDT DIFFERENTIAL, MANUAL Routine 11/22/2024 4:56 AM CDT LACTATE DEHYDROGENASE Routine 11/22/2024 4:56 AM CDT CBC WITH DIFFERENTIAL Routine 11/22/2024 4:56 AM CDT BASIC METABOLIC PANEL Routine 11/22/2024 4:56 AM CDT POC GLUCOSE Routine 11/21/2024 9:27 PM CDT POC GLUCOSE Routine 11/21/2024 6:12 PM CDT HIV DETECTION W/REFLX CONFIRMATION Routine 11/21/2024 5:46 PM CDT BLOOD CULTURE Routine 11/21/2024 5:46 PM CDT BLOOD CULTURE Routine 11/21/2024 5:46 PM CDT BLOOD CULTURE MRSA/MSSA PCR PANEL Routine 11/21/2024 4:23 PM CDT BLOOD CULTURE Routine 11/21/2024 4:23 PM CDT BLOOD CULTURE Routine 11/21/2024 4:23 PM CDT POC GLUCOSE Routine 11/21/2024 1:40 PM CDT POC GLUCOSE Routine 11/21/2024 8:46 AM CDT HEPATIC FUNCTION PANEL Routine 11/21/2024 7:03 AM CDT CBC WITH DIFFERENTIAL Routine 11/21/2024 7:03 AM CDT BASIC METABOLIC PANEL Routine 11/21/2024 7:03 AM CDT POC GLUCOSE Routine 11/20/2024 9:12 PM CDT POC GLUCOSE Routine 11/20/2024 5:43 PM CDT IR BIOPSY BONE MARROW Routine 11/20/2024 3:22 PM CDT BONE MARROW ASPIRATION & BIOPSY Pathology 11/20/2024 3:19 PM CDT CANCER ANTIGEN 19-9 Routine 11/20/2024 2 :49 PM CDT CEA Routine 11/20/2024 2:49 PM CDT CANCER ANTIGEN 125 Routine 11/20/2024 2: 49 PM CDT BASIC METABOLIC PANEL Routine 11/20/2024 2:[address] ABDOMEN PELVIS W CONTRAST Pending Discharge 11/20/2024 2:09 PM CDT POC GLUCOSE Routine 11/20/2024 12:00 PM CDT ZINC LEVEL Routine 11/20/2024 10:15 AM CDT COPPER LEVEL Routine 11/20/2024 10:15 AM CDT POC GLUCOSE Routine 11/20/2024 9:09 AM CDT C-REACTIVE PROTEIN Routine 11/20/2024 4: 30 AM CDT CBC WITH DIFFERENTIAL Routine 11/20/2024 4:30 AM CDT BASIC METABOLIC PANEL Routine 11/20/2024 4:30 AM CDT URINALYSIS W/REFLEX MICROSCOPIC Routine 11/20/2024 12:23 AM CDT URINE CULTURE Routine 11/20/2024 12:23 AM CDT HCG QUALITATIVE, URINE Routine 11/20/2024 12:21 AM CDT POC GLUCOSE Routine 11/19/2024 9:29 PM CDT POC GLUCOSE Routine 11/19/2024 1:47 PM CDT US VENOUS DOPPLER LEG BILATERAL Routine 11/19/2024 10:13 AM CDT POC GLUCOSE Routine 11/19/2024 8:00 AM CDT DIFFERENTIAL, MANUAL Routine 11/19/2024 4:51 AM CDT CBC WITH DIFFERENTIAL Routine 11/19/2024 4:51 AM CDT BASIC METABOLIC PANEL Routine 11/19/2024 4:51 AM CDT POC GLUCOSE Routine 11/18/2024 10:09 PM CDT POC GLUCOSE Routine 11/18/2024 5:27 PM CDT POC GLUCOSE Routine 11/18/2024 11:58 AM CDT TRANSFUSE PACKED RED BLOOD CELLS Routine 11/18/2024 9:44 AM CDT POC GLUCOSE Routine 11/18/2024 8:40 AM CDT DIFFERENTIAL, MANUAL Routine 11/18/2024 5:42 AM CDT CBC WITH DIFFERENTIAL Routine 11/18/2024 5:42 AM CDT BASIC METABOLIC PANEL Routine 11/18/2024 5:42 AM CDT T4 FREE Routine 11/18/2024 5:42 AM CDT POC GLUCOSE Routine 11/17/2024 9:25 PM CDT POC GLUCOSE Routine 11/17/2024 4:00 PM CDT POC GLUCOSE Routine 11/17/2024 11:43 AM CDT DIC PROFILE Routine 11/17/2024 10:15 AM CDT EBV ANTIBODY PANEL Routine 11/17/2024 10 :15 AM CDT CMV IGG AND IGM ANTIBODIES Routine 11/17/2024 10:15 AM CDT POC GLUCOSE Routine 11/17/2024 8:56 AM CDT DIFFERENTIAL, MANUAL Routine 11/17/2024 3:07 AM CDT BASIC METABOLIC PANEL Routine 11/17/2024 3:07 AM CDT CBC WITH DIFFERENTIAL Routine 11/17/2024 3:07 AM CDT POC GLUCOSE Routine 11/16/2024 11:01 PM CDT POC GLUCOSE Routine 11/16/2024 7:21 PM CDT CBC WITH DIFFERENTIAL Timed Study 11/16/2024 4:00 PM CDT BASIC METABOLIC PANEL Routine 11/16/2024 4:00 PM CDT VITAMIN B6 LEVEL Routine 11/16/2024 4:00 PM CDT VITAMIN B1 LEVEL Routine 11/16/2024 4:00 PM CDT VITAMIN C LEVEL Routine 11/16/2024 4:00 PM CDT HEPATITIS C ANTIBODY Routine 11/16/2024 4:00 PM CDT HEPATITIS B SURFACE ANTIGEN Routine 11/16/2024 4:00 PM CDT HEPATITIS B CORE AB TOTAL Routine 11/16/2024 4:00 PM CDT PTT MIXING TEST Routine 11/16/2024 4:00 PM CDT FACTOR VIII ASSAY Routine 11/16/2024 4:0 0 PM CDT CARDIOLIPIN IGG/IGM Routine 11/16/2024 4 :00 PM CDT LUPUS ANTICOAGULANT W/REFLEX CONFIRMATION Routine 11/16/2024 4:00 PM CDT LACTATE DEHYDROGENASE Routine 11/16/2024 4:00 PM CDT POC GLUCOSE Routine 11/16/2024 1:41 PM CDT XR CHEST PA OR AP 1 VW Stat 11/16/2024 9:28 AM CDT TRANSFUSE PLATELETS Routine 11/16/2024 9 :10 AM CDT POC GLUCOSE Routine 11/16/2024 8:59 AM CDT PREPARE RED BLOOD CELLS Routine 11/16/2024 8:14 AM CDT PREPARE RED BLOOD CELLS Routine 11/16/2024 8:14 AM CDT TYPE AND SCREEN Routine 11/16/2024 4:17 AM CDT [id number] EVALUATION Routine 11/16/2024 4 :17 AM CDT DIC PROFILE Routine 11/16/2024 4:17 AM CDT PATHOLOGY Routine 11/16/2024 4:16 AM CDT VERIFICATION BLOOD GROUP Stat 11/16/2024 4:16 AM CDT Encounter for blood typing VITAMIN D 25 HYDROXY Routine 11/16/2024 4:16 AM CDT HAPTOGLOBIN Routine 11/16/2024 4:16 AM CDT VITAMIN B12 AND FOLATE Routine 11/16/2024 4:16 AM CDT T3 FREE Routine 11/16/2024 4:16 AM CDT T4 FREE Routine 11/16/2024 4:16 AM CDT TSH Routine 11/16/2024 4:16 AM CDT MAIA SCREEN W/REFLEX Routine 11/16/2024 4 :16 AM CDT HIV DETECTION W/REFLX CONFIRMATION Routine 11/16/2024 4:16 AM CDT HEMOGLOBIN A1C Routine 11/16/2024 4:16 AM CDT PERIPHERAL BLOOD SMEAR PATHOLOGY INTERP Routine 11/16/2024 4:16 AM CDT SEDIMENTATION RATE Routine 11/16/2024 4: 16 AM CDT C-REACTIVE PROTEIN Routine 11/16/2024 4: 16 AM CDT COMPREHENSIVE METABOLIC PANEL Routine 11/16/2024 4:16 AM CDT RETICULOCYTES Routine 11/16/2024 4:16 AM CDT CBC WITH DIFFERENTIAL Routine 11/16/2024 4:16 AM CDT POC GLUCOSE Routine 11/16/2024 12:39 AM CDT PREPARE PLATELETS Routine 11/16/2024 12: 35 AM CDT POC GLUCOSE Routine 11/16/2024 12:04 AM CDT POC GLUCOSE Routine 2024 11:50 PM CDT from Last 3 Months Results * TELEMETRY REPORT (12/05/2024 5:28 PM CDT) Only the most recent of3 resultswithin the time period is included. us Provider Scanning ECG ORDERABLES Final Result * (ABNORMAL) POC GLUCOSE (12/04/2024 8:12 AM CDT) Only the most recent of92 resultswithin the time period is included. GLUCOSE POC 114(H) 74 - 99 mg/dL 12/04/2024 8:12 AM CDT [facility] SPECIMEN SOURCE, GLUCOSE POC Whole Blood 12/04/2024 8:12 AM CDT [facility] COMMENT, GLU POC Alerted Nurse/DONIS/D r 12/04/2024 8:12 AM CDT [facility] Blood, whole 12/04/2024 8:12 AM CDT 12/04/2024 8:19 AM CDT us Rhiannon Mcmahan DO POINT OF CARE TESTING Final Result [id number] [address] [place] [address] * MANUAL DIFFERENTIAL (12/04/2024 5:00 AM CDT) Only the most recent of10 resultswithin the time period is included. Pathologist [facility] PLATELET EST. Consistent w Count 12/04/2024 6:32 AM CDT [facility] ANISOCYTOSIS 1+ /hpf 12/04/2024 6:32 AM CDT [facility] POLYCHROMASIA 1+ /hpf 12/04/2024 6:32 AM CDT [facility] HYPOCHROMIA 1+ /hpf 12/04/2024 6:32 AM CDT [facility] Blood Collection / Unknown 12/04/2024 5:00 AM CDT 12/04/2024 5:19 AM CDT us Aniya Galan DO HEMATOLOGY ORDERABLES COM Final Result Performing Organization Address City/[facility] Co de Phone Number [facility]# [id number] [address] [place] [address] * (ABNORMAL) CBC WITH DIFFERENTIAL (12/04/2024 5:00 AM CDT) Only the most recent of20 resultswithin the time period is included. Pathologist [facility] WBC 16.1(H) 4.0 - 9.8 K/uL 12/04/2024 5:52 AM CDT [facility] RBC 2.62(L) 3.90 - 4.90 M/uL 12/04/2024 5:52 AM CDT [facility] HEMOGLOBIN 7.4(L) 11.8 - 14.8 g/dL 12/04/2024 5:52 AM CDT [facility] HEMATOCRIT 24.6(L) 35.5 - 44.0 % 12/04/2024 5:52 AM CDT [facility] - . [facility] MCV 93.9 82.0 - 99.0 fL 12/04/2024 5:52 AM CDT [facility] . [facility] MCH 28.2 27.2 - 32.6 pg 12/04/2024 5:52 AM CDT [facility] MCHC 30.1(L) 31.5 - 35.5 g/dL 12/04/2024 5:52 AM CDT [facility] - [facility] RDW 16.3(H) 11.5 - 14.5 % 12/04/2024 5:52 AM CDT [facility] - [facility] RDW-STDEV 53.8(H) 37.1 - 48.7 fL 12/04/2024 5:52 AM CDT [facility] - [facility] PLATELETS 240 140 - 350 K/uL 12/04/2024 5:52 AM CDT [facility] - [facility] MPV 9.9 9.3 - 12.4 fL 12/04/2024 5:52 AM CDT [facility] - . [facility] NEUTROPHILS 67 % 12/04/2024 5:52 AM CDT [facility] - . [facility] LYMPHOCYTES 27 % 12/04/2024 5:52 AM CDT [facility] - . [facility] MONOCYTES 4 % 12/04/2024 5:52 AM CDT [facility] - . [facility] EOSINOPHILS 1 % 12/04/2024 5:52 AM CDT [facility] - . [facility] BASOPHILS 0 % 12/04/2024 5:52 AM CDT [facility] - . [facility] IMMATURE GRANULOCYTES 1 % 12/04/2024 5:52 AM CDT [facility] - . [facility] Comment:IG (Immature Granulo cyte) count includes Metamyelocytes, Myelocytes, and Promyelocytes NEUTROPHIL ABSOLUTE 10.84(H) 1.90 - 7.00 K/uL 12/04/2024 5:52 AM CDT [facility] - . [place] LYMPHOCYTE ABSOLUTE 4.35 0.70 - 4.50 K/uL 12/04/2024 5:52 AM CDT [facility] MONOCYTE ABSOLUTE 0.62 0.10 - 1.30 K/uL 12/04/2024 5:52 AM CDT [facility] EOSINOPHIL ABSOLUTE 0.09 0.00 - 0.70 K/uL 12/04/2024 5:52 AM CDT [facility] - [facility] BASOPHILS ABSOLUTE 0.04 0.00 - 0.20 K/uL 12/04/2024 5:52 AM CDT [facility] - . [place] IMMATURE GRANULOCYTES ABSOLUTE 0.13(H) 0.00 - 0.03 K/uL 12/04/2024 5:52 AM T [facility] - . [place] Blood Collection / Unknown 12/04/2024 5:00 AM CDT 12/04/2024 5:19 AM CDT Aniya Galan DO HEMATOLOGY ORDERABLES Final Result [facility] [employer] [facility]# [id number] [address] [place] [address] * (ABNORMAL) BASIC METABOLIC PANEL (12/04/2024 5:00 AM CDT) Only the most recent of20 resultswithin the time period is included. SODIUM 134(L) 136 - 145 mmol/L 12/04/2024 6:15 AM T [facility] POTASSIUM 3.9 3.5 - 5.0 mmol/L 12/04/2024 6:15 AM T [facility] CHLORIDE 95(L) 98 - 107 mmol/L 12/04/2024 6:15 AM T [facility]. [facility] CO2 32(H) 22 - 29 mmol/L 12/04/2024 6:15 AM T [facility] SERVICES [facility]. [facility] CALCIUM 9.7 8.6 - 10.2 mg/dL 12/04/2024 6:15 AM CDT [facility] BUN 16 6 - 20 mg/dL 12/04/2024 6:15 AM T [facility] CREATININE 0.73 0.51 - 0.95 mg/dL 12/04/2024 6:15 AM T [facility] GLUCOSE 137(H) 74 - 99 mg/dL 12/04/2024 6:15 AM T [facility] GFR >60 >=60 mL/min/1.7 3 sq meter 12/04/2024 6:15 AM T [facility] Comment:eGFR calculated with 2020 CKD-EPI equation. Vegetarian diet, extremely high or low muscle mass, and may affect results. Cystatin C with Glomerular Filtration Rate is a suitable alternative for these patients. ANION GAP 7(L) 8 - 16 mmol/L 12/04/2024 6:15 AM T [facility] Blood Collection / Unknown 12/04/2024 5:00 AM CDT 12/04/2024 5:19 AM CDT us Aniya Galan DO CHEMISTRY ORDERABLES F inal Result [facility]# [id number] [address] [facility] [place] [address] * IR VENOUS ACCESS (12/03/2024 10:29 AM CDT) Anatomical Region Laterality Modality X-Ray Angiograph y 12/03/2024 10:2 9 AM CDT Impressions 12/03/2024 10:56 AM CDT IMPRESSION: Successful right internal jugular tunneled central venous catheter placement. PLAN: The tunneled catheter is ready for immediate use. DICTATION LOCATION: 1 Narrative 12/03/2024 10:56 AM CDT EXAMINATION: RIGHT INTERNAL JUGULAR TUNNELED CENTRAL VENOUS CATHETER PLACEMENT DATE: 12/03/2024 10:29 AM HISTORY: 34-year-old woman with upper extremity DVT who requires tunneled central venous access for parenteral nutrition. SEDATION: Local anesthetic FLUOROSCOPY TIME: 0.3 MINUTES REFERENCE AIR KERMA: 1 mGy EBL: 5 mL TECHNIQUE: The right upper chest and neck were sterilely prepped and draped. Maximum sterile precautions were used including chlorhexidine skin prep, hat, mask, sterile gown, sterile gloves and sterile drape fully covering the patient. The ultrasound probe was also sterilely draped. The right internal jugular vein was accessed using a micropuncture needle under continuous ultrasound guidance. A permanent image of the patent vein was recorded and placed in the patients charge. A wire was advanced into the central circulation, used to measure the intravascular length and place a peel away sheath. A site was chosen to tunnel the catheter approximately 3 finger breadths below the clavicle. The site was infiltrated with lidocaine and a stab incision was made. The tract to the venotomy site was also infiltrated with lidocaine. The catheter tubing was tunneled through the incision to the venotomy site. The tubing was advanced through the peel-away sheath and the sheath was removed. The venotomy site was closed with pursestring suture. The catheter entry site was closed with a pursestring suture. The catheter was secured to skin using silk sutures. The catheter lumens were flushed with heparinized saline. FINDINGS: Ultrasound evaluation of the right internal jugular vein demonstrates a patent vessel. The final fluoroscopic image shows the catheter tip appropriately positioned in the right atrium. Procedure Note Geoff Owens MD - 12/03/2024 EXAMINATION: RIGHT INTERNAL JUGULAR TUNNELED CENTRAL VENOUS CATHETER PLACEMENT DATE: 12/03/2024 10:29 AM HISTORY: 34-year-old woman with upper extremity DVT who requires tunneled central venous access for parenteral nutrition. SEDATION: Local anesthetic FLUOROSCOPY TIME: 0.3 MINUTES REFERENCE AIR KERMA: 1 mGy EBL: 5 mL TECHNIQUE: The right upper chest and neck were sterilely prepped and draped. Maximum sterile precautions were used including chlorhexidine skin prep, hat, mask, sterile gown, sterile gloves and sterile drape fully covering the patient. The ultrasound probe was also sterilely draped. The right internal jugular vein was accessed using a micropuncture needle under continuous ultrasound guidance. A permanent image of the patent vein was recorded and placed in the patients charge. A wire was advanced into the central circulation, used to measure the intravascular length and place a peel away sheath. A site was chosen to tunnel the catheter approximately 3 finger breadths below the clavicle. The site was infiltrated with lidocaine and a stab incision was made. The tract to the venotomy site was also infiltrated with lidocaine. The catheter tubing was tunneled through the incision to the venotomy site. The tubing was advanced through the peel-away sheath and the sheath was removed. The venotomy site was closed with pursestring suture. The catheter entry site was closed with a pursestring suture. The catheter was secured to skin using silk sutures. The catheter lumens were flushed with heparinized saline. FINDINGS: Ultrasound evaluation of the right internal jugular vein demonstrates a patent vessel. The final fluoroscopic image shows the catheter tip appropriately positioned in the right atrium. IMPRESSION: Successful right internal jugular tunneled central venous catheter placement. PLAN: The tunneled catheter is ready for immediate use. DICTATION LOCATION: 1 us Aniya Galan DO IR ORDERABLES Final Result * TRANSFUSE RED BLOOD CELLS (11/30/2024 5:01 PM CDT) Only the most recent of2 resultswithin the time period is included. us Aniya Galan DO BLOOD TRANSFUSION ORDE RABLES Final Result * TYPE AND SCREEN (11/30/2024 11:29 AM CDT) Only the most recent of2 resultswithin the time period is included. ABO GROUP O 11/30/2024 1:19 PM CDT [facility] RH (D) TYPE Positive 11/30/2024 1:19 PM CDT [facility] ANTIBODY SCREEN Negative 11/30/2024 1:19 PM CDT [facility] Blood Venipuncture / Unknown 11/30/2024 11:29 AM CDT 11/30/2024 11:57 AM CDT us Aniya Galan DO BLOOD BANK ORDERABLES Edited Result - Final [facility] -- [facility] CLIA# [id number] [address] [place] [address] * PREPARE RED BLOOD CELLS (11/30/2024 7:13 AM CDT) Only the most recent of3 resultswithin the time period is included. COMPONENT TYPE [id number] [facility] -- [facility] COMPONENT IDENTIFICATION [id number] [facility] ABO O [facility] RH POS [facility] CROSSMATCH Compatible [facility] COMPONENT STATUS Transfused ME [facility] COMPONENT EXPIRATION DATE/TIME [id number] [facility] -- .[facility] COMPONENT CODING SYSTEM 5100 [facility] -- .[facility] VOLUME, BLOOD PRODUCT 279 [facility] -- .[facility] Other, specify 11/30/2024 7: 13 AM CDT Aniya Galan DO LAB TRANSFUSION ORDERA BLES Edited Result - Final [facility] [employer] SERVICES -- [facility] CLIA# [id number] [address] [place] [address] * BLOOD CULTURE (11/29/2024 5:53 AM CDT) Only the most recent of10 resultswithin the time period is included. Pathologist [facility] BLOOD CULTURE No growth 12/04/2024 7:00 AM CDT [facility] - [facility] Blood (Peripheral) Venipuncture / Unknown 11/29/2024 5:53 AM CDT 11/29/2024 6:01 AM CDT Ej Bhatt MD MICROBIOLOGY - GENERAL ORDERABLE S Final Result [facility] [employer] [facility]# [id number] [address] [place] [address] * (ABNORMAL) C-REACTIVE PROTEIN (11/28/2024 3:27 AM CDT) Only the most recent of3 resultswithin the time period is included. CRP 186.0(H) <5.0 mg/L 11/28/2024 9:58 AM CDT [facility] Blood Venipuncture / Unknown 11/28/2024 3:27 AM CDT 11/28/2024 3:39 AM CDT Ej Bhatt MD CHEMISTRY ORDERABLES Final Resul t Performing Organization Address [facility] Co de Phone Number [facility]# [id number] [address] [place] [address] * (ABNORMAL) CK (11/28/2024 3:27 AM CDT) CK 13(L) 20 - 180 U/L 11/28/2024 11:12 AM CDT [facility] Blood Venipuncture / Unknown 11/28/2024 3:27 AM CDT 11/28/2024 3:39 AM CDT Ej Bhatt MD CHEMISTRY ORDERABLES Final Resul t Performing Organization Address [facility] Co de Phone Number [facility]# [id number] [address] [place] [address] * US EXT NON VASC LTD RT (11/26/2024 4:36 PM CDT) Anatomical Region Laterality Modality Right Ultrasound 11/26/2024 4:37 PM CDT Impressions 11/26/2024 4:56 PM CDT IMPRESSION: 1. Small fluid collection near the wrist, which may be a ganglion cyst or focal severe soft tissue edema. DICTATION LOCATION: Location 4. Narrative 11/26/2024 4:56 PM CDT EXAMINATION: US EXT NON VASC LTD RT DATE: 11/26/2024 4:36 PM INDICATION: Right upper extremity mass and pain and swelling. TECHNIQUE: Magnetic resonance imaging (MRI) of the right upper extremity was performed without intravenous contrast. COMPARISON: None. FINDINGS: Near the wrist, there is a 1.7 x 1.5 x 0.2 cm fluid collection. Procedure Note Сергей Norris MD - 11/26/2024 EXAMINATION: US EXT NON VASC LTD RT DATE: 11/26/2024 4:36 PM INDICATION: Right upper extremity mass and pain and swelling. TECHNIQUE: Magnetic resonance imaging (MRI) of the right upper extremity was performed without intravenous contrast. COMPARISON: None. FINDINGS: Near the wrist, there is a 1.7 x 1.5 x 0.2 cm fluid collection. IMPRESSION: 1. Small fluid collection near the wrist, which may be a ganglion cyst or focal severe soft tissue edema. DICTATION LOCATION: Location 4. Eyad Estrada MD ORDERABLES Final R esult * MRI THORACIC LUM W WO CONT (11/26/2024 12:27 AM CDT) Anatomical Region Laterality Modality Spine Magnetic Resonan ce 11/26/2024 12:2 8 AM CDT Impressions 11/26/2024 8:10 AM CDT IMPRESSION: 1. Largely chronic appearing compression deformities at T12 and L1. Subacute edema versus type I degenerative endplate signal changes at T12. 2. Left-sided hydronephrosis is unchanged. DICTATION LOCATION: Location 1 - [facility] 11/26/2024 8:10 AM CDT MRI THORACIC LUM W WO CONT DATE: 11/26/2024 12:27 AM HISTORY: Compression fracture, thoracic, Compression fracture, lumbar. TECHNIQUE: Multiplanar and multisequence magnetic resonance images were obtained. CONTRAST: GADOTERIDOL 279.3 MG/ML INTRAVENOUS SOLUTION Given:12 mL COMPARISON: None FINDINGS: Thoracic spine: Thoracic spinal alignment is intact. Moderate compression deformity at the T12 vertebral body has a largely chronic appearance with underlying fatty changes in the marrow. Minimal accompanying endplate irregularities with type I signal abnormality are noted. Remaining thoracic vertebrae are intact. Mild bulging at the T11-12 level. No severe canal stenosis. Spinal cord size and signal intensity are normal. Lumbar spine: Alignment is normal. Moderate chronic appearing L1 compression fracture deformity is seen. Accompanying superior endplate irregularities are present. There are tiny Schmorl node type deformities at levels L2, L3, and L5. Minimal bulging is present at T12-L1. No significant canal or foraminal stenosis. Spinal cord terminates at L2. Nerve roots descend normally. Left-sided hydronephrosis is noted. It is similar to prior CT exam. Procedure Note Khris Salinas MD - 11/26/2024 MRI THORACIC LUM W WO CONT DATE: 11/26/2024 12:27 AM HISTORY: Compression fracture, thoracic, Compression fracture, lumbar. TECHNIQUE: Multiplanar and multisequence magnetic resonance images were obtained. CONTRAST: GADOTERIDOL 279.3 MG/ML INTRAVENOUS SOLUTION Given:12 mL COMPARISON: None FINDINGS: Thoracic spine: Thoracic spinal alignment is intact. Moderate compression deformity at the T12 vertebral body has a largely chronic appearance with underlying fatty changes in the marrow. Minimal accompanying endplate irregularities with type I signal abnormality are noted. Remaining thoracic vertebrae are intact. Mild bulging at the T11-12 level. No severe canal stenosis. Spinal cord size and signal intensity are normal. Lumbar spine: Alignment is normal. Moderate chronic appearing L1 compression fracture deformity is seen. Accompanying superior endplate irregularities are present. There are tiny Schmorl node type deformities at levels L2, L3, and L5. Minimal bulging is present at T12-L1. No significant canal or foraminal stenosis. Spinal cord terminates at L2. Nerve roots descend normally. Left-sided hydronephrosis is noted. It is similar to prior CT exam. IMPRESSION: 1. Largely chronic appearing compression deformities at T12 and L1. Subacute edema versus type I degenerative endplate signal changes at T12. 2. Left-sided hydronephrosis is unchanged. DICTATION LOCATION: Location 1 - [facility] Eyad Estrada MD MR ORDERABLES Final R esult * VANCOMYCIN LEVEL TROUGH (11/25/2024 7:45 PM CDT) Only the most recent of2 resultswithin the time period is included. VANCOMYCIN, TROUGH 13.6 10.0 - 17.0 ug/mL 11/25/2024 8:33 PM CDT [facility] Blood Venipuncture / Unknown 11/25/2024 7:45 PM CDT 11/25/2024 7:52 PM CDT Narrative [facility] - 11/25/2024 8:33 PM CDT Vancomycin Trough Therapeutic Range = 10.0 - 20.0 ug/mL Vancomycin Trough Toxic Level = >25.0 ug/mL Eyad Estrada MD CHEMISTRY ORDERABLES Fi nal Result Performing Organization Address [facility]/ZIP Co de Phone Number [facility] CLIA# [id number] [address] [place] [address] * PTT (11/23/2024 11:20 AM CDT) PTT 30.4 24.4 - 36.4 seconds 11/23/2024 12:17 PM CDT [facility] Comment: PTT Therapeutic Range: Heparin Level PTT (seconds) <0.10 units/mL <55.8 0.10 - 0.30 units/mL 55.8 - 74.3 0.30 - 0.70 units/mL* 74.3 - 111.2* 0.70 - 1.00 units/mL 111.2 - 138.9 *corresponds to therapeutic range for unfractionated heparin Blood Venipuncture / Unknown 11/23/2024 11:20 AM CDT 11/23/2024 11:54 AM CDT Eyad Estrada MD HEMATOLOGY ORDERABLES F inal Result Performing Organization Address City/[facility]/ZIP Co de Phone Number [facility] [employer] [facility]# [id number] [address] [place] [address] * ECHO COMPLETE - CONTRAST AND STRAIN IF INDICATED (11/23/2024 9:52 AM CDT) EJECTION FRACTION 65 INTERFACE SYSTEM 11/23/2024 9:29 AM CDT Narrative INTERFACE SYSTEM - 11/23/2024 11:30 AM CDT [address] [address] [email or web address] Transthoracic Echocardiogram Patient: Stacia May Study ID: ECHO COMPLETE - Gender: F : 1990 Age: 34 Race: K Height 149.9cm Study Date: 11/23/2024 Weight: 58.4kg Access. #: [id number] BP: *Referring Physician:Arnol Agosto Blair Elizabeth *Ordering Physician:* Eyad Estrada service car operator: Nurse: Indications: Bradycardia STUDY CONCLUSIONS: SUMMARY: - Left ventricle: The cavity size was normal. Wall thickness was normal. Global systolic function is normal. The estimated ejection fraction is 60-65%. For Epic reporting: the left ventricular ejection fraction is 65% . Left ventricular diastolic function parameters are normal. - Left atrium: The atrium is normal in size. - Right ventricle: The cavity size is normal. Systolic function is normal. - Pulmonary arteries: The peak systolic pressure is 28mm Hg. - No significant valvular disease. Cardiac Anatomy: LEFT VENTRICLE: The cavity size was normal. Wall thickness was normal. Global systolic function is normal. The estimated ejection fraction is 60-65%. For Epic reporting: the left ventricular ejection fraction is 65% . Left ventricular diastolic function parameters are normal. AORTIC VALVE: Structurally normal valve. Trileaflet. No significant regurgitation. The mean systolic gradient is 6mm Hg. The peak systolic gradient is 15mm Hg. The LVOT to aortic valve VTI ratio is 0.82. The valve area is 1.7cm^2. The ratio of LVOT to aortic valve peak velocity is 0.76. AORTA: Aortic root: The root is normal-sized. MITRAL VALVE: Structurally normal valve. Trivial regurgitation. The peak diastolic gradient is 6mm Hg. LEFT ATRIUM: The atrium is normal in size. RIGHT VENTRICLE: The cavity size is normal. Systolic function is normal. PULMONIC VALVE: Structurally normal valve. No significant regurgitation. TRICUSPID VALVE: Structurally normal valve. No significant regurgitation. RIGHT ATRIUM: The atrium was normal in size. SYSTEMIC VEINS: Inferior vena cava: The IVC is normal-sized. PERICARDIUM: There is no pericardial effusion. Measurements Left ventricle Value Ref IVS, ED, LAX (N) 0.6 cm 0.6 - 0.9 SOPHIA, LAX (L) 3.2 cm 3.8 - 5.2 SOPHIA/bsa, LAX (L) 2.1 cm/m^2 2.3 - 3.1 SOPHIA, LAX chord (N) 4.6 cm 3.8 - 5.2 ESD, LAX chord (N) 3.2 cm 2.2 - 3.5 SOPHIA/bsa, LAX chord (N) 3.0 cm/m^2 2.3 - 3.1 ESD/bsa, LAX chord (N) 2.1 cm/m^2 1.3 - 2.1 FS, LAX chord (N) 30 % 27 - 45 IVS, ED (N) 0.6 cm 0.6 - 0.9 PW, ED (N) 0.7 cm 0.6 - 0.9 EDV, 2-p (N) 73 ml 46 - 106 ESV, 2-p (N) 23 ml 14 - 42 EF, 2-p (N) 68 % 54 - 74 SV, 2-p 50 ml --------- SV/bsa, 2-p 32.6 ml/m^2 --------- E', lat sav, TDI (N) 14.6 cm/sec >=10.0 E/e', lat sav, TDI (N) 9 <=13 E', med sav, TDI (N) 11.4 cm/sec >=7.0 E/e', med sav, TDI 11 --------- E', avg, TDI 13.0 cm/sec --------- E/e', avg, TDI (N) 10 <=14 LVOT Value Ref Diam, S 1.6 cm --------- Area 2.0 cm^2 --------- Peak maureen, S 1.46 m/sec --------- VTI, S 35.9 cm --------- Peak grad, S 9 mm Hg --------- Right ventricle Value Ref TAPSE, MM (N) 2.5 cm >=1.7 Pressure, S 35 mm Hg --------- Left atrium Value Ref AP dim, ES (N) 3.4 cm 2.7 - 3.8 AP dim index, ES (N) 2.2 cm/m^2 1.5 - 2.3 SI dim, A4C 4.8 cm --------- Area ES, A4C (N) 14 cm^2 <=20 Area/bsa ES, A4C 9.15 cm^2/m^2 --------- LA/Ao root ratio 1.36 --------- Aortic valve Value Ref Peak v, S 1.9 m/sec --------- Mean v, S 1.16 m/sec --------- VTI, S 43.8 cm --------- Mean grad, S 6 mm Hg --------- Peak grad, S 15 mm Hg --------- LVOT/AV, VTI ratio 0.82 --------- BYRON, VTI 1.7 cm^2 --------- BYRON/bsa, VTI 1.08 cm^2/m^2 --------- LVOT/AV, Vpeak ratio 0.76 --------- BYRON, Vmax 1.5 cm^2 --------- BYRON/bsa, Vmax 1.01 cm^2/m^2 --------- Mitral valve Value Ref Peak E 1.26 m/sec --------- Peak A 0.46 m/sec --------- Decel time 232 ms --------- PHT 68 ms --------- Peak grad, D 6 mm Hg --------- Peak E/A ratio 2.7 --------- MVA, PHT 3.2 cm^2 --------- MVA/bsa, PHT 2.12 cm^2/m^2 --------- Pulmonic valve Value Ref Peak v, S 1.34 m/sec --------- Peak grad, S 7 mm Hg --------- Tricuspid valve Value Ref TR peak v (N) 2.8 m/sec <=2.8 Peak RV-RA grad, S 30 mm Hg --------- Aortic root Value Ref Root diam, 2.5 cm --------- Pulmonary artery Value Ref Pressure, S 28 mm Hg --------- Systemic veins Value Ref Estimated RA pressure 5 mm Hg --------- Legend: (L) and (H) brenton values outside specified reference range. (N) zhu values inside specified reference range. Procedure data: Procedure information: A transthoracic echocardiogram was performed. Scanning was performed from the parasternal, apical, and subcostal acoustic windows. Transthoracic echocardiogram. Complete 2D, complete spectral Doppler, and color Doppler. Birthdate: Patient birthdate: 1990. Age: Patient is 34year(s) old. Sex: gender: female. Height: 149.9cm. 59in. Weight: 58.4kg. 128.7lb. Body mass index: 26kg/m^2. Body surface area: 1.53m^2. Study date: Study date: 11/23/2024. Study time: 09:29 AM. Prepared and Electronically Authenticated Dale Arroyo [id number] Procedure Note Dale Arroyo MD - 11/23/[address] [place] [address] [email or web address] Transthoracic Echocardiogram Patient: Stacia May Study ID: ECHO COMPLETE - Gender: F : 1990 Age: 34 Race: UNK Height 149.9cm Study Date: 11/23/2024 Weight: 58.4kg Access. #: [id number] BP: *Referring Physician:Arnol Agosto Blair Elizabeth *Ordering Physician:Eyad Sue service car operator: Nurse: Indications: Bradycardia STUDY CONCLUSIONS: SUMMARY: - Left ventricle: The cavity size was normal. Wall thickness was normal. Global systolic function is normal. The estimated ejection fraction is 60-65%. For Epic reporting: the left ventricular ejection fraction is65% . Left ventricular diastolic function parameters are normal. - Left atrium: The atrium is normal in size. - Right ventricle: The cavity size is normal. Systolic function isnormal. - Pulmonary arteries: The peak systolic pressure is 28mm Hg. - No significant valvular disease. Cardiac Anatomy: LEFT VENTRICLE: The cavity size was normal. Wall thickness was normal.Global systolic function is normal. The estimated ejection fraction is 60-65%.For Epic reporting: the left ventricular ejection fraction is 65% . Left ventricular diastolic function parameters are normal. AORTIC VALVE: Structurally normal valve. Trileaflet. No significant regurgitation. The mean systolic gradient is 6mm Hg. The peak systolic gradient is 15mm Hg. The LVOT to aortic valve VTI ratio is 0.82. Thevalve area is 1.7cm^2. The ratio of LVOT to aortic valve peak velocity is0.76. AORTA: Aortic root: The root is normal-sized. MITRAL VALVE: Structurally normal valve. Trivial regurgitation. Thepeak diastolic gradient is 6mm Hg. LEFT ATRIUM: The atrium is normal in size. RIGHT VENTRICLE: The cavity size is normal. Systolic function isnormal. PULMONIC VALVE: Structurally normal valve. No significantregurgitation. TRICUSPID VALVE: Structurally normal valve. No significantregurgitation. RIGHT ATRIUM: The atrium was normal in size. SYSTEMIC VEINS: Inferior vena cava: The IVC is normal-sized. PERICARDIUM: There is no pericardial effusion. Measurements Left ventricle Value Ref IVS, ED, LAX (N) 0.6 cm 0.6 - 0.9 SOPHIA, LAX (L) 3.2 cm 3.8 - 5.2 SOPHIA/bsa, LAX (L) 2.1 cm/m^2 2.3 - 3.1 SOPHIA, LAX chord (N) 4.6 cm 3.8 - 5.2 ESD, LAX chord (N) 3.2 cm 2.2 - 3.5 SOPHIA/bsa, LAX chord (N) 3.0 cm/m^2 2.3 - 3.1 ESD/bsa, LAX chord (N) 2.1 cm/m^2 1.3 - 2.1 FS, LAX chord (N) 30 % 27 - 45 IVS, ED (N) 0.6 cm 0.6 - 0.9 PW, ED (N) 0.7 cm 0.6 - 0.9 EDV, 2-p (N) 73 ml 46 - 106 ESV, 2-p (N) 23 ml 14 - 42 EF, 2-p (N) 68 % 54 - 74 SV, 2-p 50 ml --------- SV/bsa, 2-p 32.6 ml/m^2 --------- E', lat sav, TDI (N) 14.6 cm/sec >=10.0 E/e', lat sav, TDI (N) 9 <=13 E', med sav, TDI (N) 11.4 cm/sec >=7.0 E/e', med sav, TDI 11 --------- E', avg, TDI 13.0 cm/sec --------- E/e', avg, TDI (N) 10 <=14 LVOT Value Ref Diam, S 1.6 cm --------- Area 2.0 cm^2 --------- Peak maureen, S 1.46 m/sec --------- VTI, S 35.9 cm --------- Peak grad, S 9 mm Hg --------- Right ventricle Value Ref TAPSE, MM (N) 2.5 cm >=1.7 Pressure, S 35 mm Hg --------- Left atrium Value Ref AP dim, ES (N) 3.4 cm 2.7 - 3.8 AP dim index, ES (N) 2.2 cm/m^2 1.5 - 2.3 SI dim, A4C 4.8 cm --------- Area ES, A4C (N) 14 cm^2 <=20 Area/bsa ES, A4C 9.15 cm^2/m^2 --------- LA/Ao root ratio 1.36 --------- Aortic valve Value Ref Peak v, S 1.9 m/sec --------- Mean v, S 1.16 m/sec --------- VTI, S 43.8 cm --------- Mean grad, S 6 mm Hg --------- Peak grad, S 15 mm Hg --------- LVOT/AV, VTI ratio 0.82 --------- BYRON, VTI 1.7 cm^2 --------- BYRON/bsa, VTI 1.08 cm^2/m^2 --------- LVOT/AV, Vpeak ratio 0.76 --------- BYRON, Vmax 1.5 cm^2 --------- BYRON/bsa, Vmax 1.01 cm^2/m^2 --------- Mitral valve Value Ref Peak E 1.26 m/sec --------- Peak A 0.46 m/sec --------- Decel time 232 ms --------- PHT 68 ms --------- Peak grad, D 6 mm Hg --------- Peak E/A ratio 2.7 --------- MVA, PHT 3.2 cm^2 --------- MVA/bsa, PHT 2.12 cm^2/m^2 --------- Pulmonic valve Value Ref Peak v, S 1.34 m/sec --------- Peak grad, S 7 mm Hg --------- Tricuspid valve Value Ref TR peak v (N) 2.8 m/sec <=2.8 Peak RV-RA grad, S 30 mm Hg --------- Aortic root Value Ref Root diam, 2.5 cm --------- Pulmonary artery Value Ref Pressure, S 28 mm Hg --------- Systemic veins Value Ref Estimated RA pressure 5 mm Hg --------- Legend: (L) and (H) brenton values outside specified reference range. (N) zhu values inside specified reference range. Procedure data: Procedure information: A transthoracic echocardiogram was performed.Scanning was performed from the parasternal, apical, and subcostal acousticwindows. Transthoracic echocardiogram. Complete 2D, complete spectralDoppler, and color Doppler. Birthdate: Patient birthdate: 1990. Age:Patient is 34year(s) old. Sex: gender: female. Height: 149.9cm. 59in. Weight: 58.4kg. 128.7lb. Body mass index: 26kg/m^2. Body surfacearea: 1.53m^2. Study date: Study date: 11/23/2024. Study time: 09:29 AM. Prepared and Electronically Authenticated Dale Arroyo [id number] us Eyad Estrada MD US ORDERABLES Final R esult INTERFACE SYSTEM Refer to clinic/hospital department * US DOPPLER VENOUS ARM BILATERAL (11/23/2024 9:09 AM CDT) Anatomical Region Laterality Modality Upper Extremity Ultrasound 11/23/2024 8:14 AM CDT Narrative 11/23/2024 6:00 PM CDT [address] [address] [email or web address] Venous Exam Complete Upper Extremity Duplex Patient: Stacia May Study ID: [id number] Gender: F : 1990 Age: 34 Race: CAU Height Study Date: 11/23/2024 Weight: Access. #: [id number] *Referring Physician:* Shane Ohara, Arnol Alex *Ordering Physician:Eyad Sue *Fruit Room Hand:Daniela Brown History: Swelling in the right upper extermity. Swelling of both upper extremities. No previous DVT. Thrombophlebitis involving the bilateral upper extremity veins. PMH: No prior study is available for comparison. Study data: Study status: Routine. Procedure: A vascular evaluation was performed. Image quality was good. Bilateral upper extremity venous duplex. Doppler flow study including spectral analysis, color and galloway scale imaging. Birthdate: Patient birthdate: 1990. Age: Patient is 34year(s) old. Sex: gender: female. Study date: Study date: 11/23/2024. Study time: 08:14 AM. Location: Vascular laboratory. Patient status: Inpatient. Impressions 1. Acute deep vein thrombosis involving the axillary vein of the right upper extremity. 2. Acute superficial vein thrombosis involving the cephalic and basilic veins of the right upper extremity. 3. Acute superficial vein thrombosis involving the basilic and cephalic veins of the left upper extremity. Tables: Venous: + + + +--------+ !Location !Overall !Flow properties !Thrombus! + + + +--------+ !Right internal !Patent !Phasic; spontaneous; !--------! !jugular ! !compressible ! ! + + + +--------+ !Right subclavian !Patent !Phasic; spontaneous; normal!--------! ! ! !augmentation; compressible ! ! + + + +--------+ !Right axillary !Totally thrombosed!Noncompressible !Acute ! + + + +--------+ !Right brachial !Patent !Phasic; spontaneous; normal!--------! ! ! !augmentation; compressible ! ! + + + +--------+ !Right cephalic !Totally thrombosed!Noncompressible !Acute ! + + + +--------+ !Right basilic !Totally thrombosed!Noncompressible !Acute ! + + + +--------+ !Right radial ! !Compressible !--------! + + + +--------+ !Right ulnar ! !Compressible !--------! + + + +--------+ !Left internal !Patent !Phasic; spontaneous; !--------! !jugular ! !compressible ! ! + + + +--------+ !Left subclavian !Patent !Phasic; spontaneous; normal!--------! ! ! !augmentation; compressible ! ! + + + +--------+ !Left axillary !Patent !Phasic; spontaneous; normal!--------! ! ! !augmentation; compressible ! ! + + + +--------+ !Left brachial !Patent !Phasic; spontaneous; normal!--------! ! ! !augmentation; compressible ! ! + + + +--------+ !Left cephalic !Totally thrombosed!Noncompressible !Acute ! + + + +--------+ !Left basilic !Totally thrombosed!Noncompressible !Acute ! + + + +--------+ !Left radial ! !Compressible !--------! + + + +--------+ !Left ulnar ! !Compressible !--------! + + + +--------+ *Velocities are expressed in cm/s, Diameters are expressed in mm Prepared and Electronically Authenticated Jaylin Kohli [id number]:31 Procedure Note Jaylin Kohli MD - 11/23/2024 [address] [place] [address] [email or web address] Venous Exam Complete Upper Extremity Duplex Patient: Stacia May Study ID: [id number] Gender: F : 1990 Age: 34 Race: [facility] Height Study Date: 11/23/2024 Weight: Access. #: [id number] *Referring Physician:* Shane Ohara Blair Elizabeth *Ordering Physician:Eyad Sue *Fruit Room Hand:Daniela Brown History: Swelling in the right upper extermity. Swelling of bothupper extremities. No previous DVT. Thrombophlebitis involving the bilateralupper extremity veins. PMH: No prior study is available for comparison. Study data: Study status: Routine. Procedure: A vascular evaluationwas performed. Image quality was good. Bilateral upper extremity venousduplex. Doppler flow study including spectral analysis, color and galloway scale imaging. Birthdate: Patient birthdate: 1990. Age: Patient is 34year(s) old. Sex: gender: female. Study date: Study date: 11/23/2024. Study time: 08:14 AM. Location: Vascular laboratory.Patient status: Inpatient. Impressions 1. Acute deep vein thrombosis involving the axillary vein of the rightupper extremity. 2. Acute superficial vein thrombosis involving the cephalic and basilicveins of the right upper extremity. 3. Acute superficial vein thrombosis involving the basilic and cephalicveins of the left upper extremity. Tables: Venous: + + + +--------+ !Location !Overall !Flow properties!Thrombus! + + + +--------+ !Right internal !Patent !Phasic; spontaneous;!--------! !jugular ! !compressible !! + + + +--------+ !Right subclavian !Patent !Phasic; spontaneous;normal!--------! ! ! !augmentation; compressible !! + + + +--------+ !Right axillary !Totally thrombosed!Noncompressible !Acute! + + + +--------+ !Right brachial !Patent !Phasic; spontaneous;normal!--------! ! ! !augmentation; compressible !! + + + +--------+ !Right cephalic !Totally thrombosed!Noncompressible !Acute! + + + +--------+ !Right basilic !Totally thrombosed!Noncompressible !Acute! + + + +--------+ !Right radial ! !Compressible!--------! + + + +--------+ !Right ulnar ! !Compressible!--------! + + + +--------+ !Left internal !Patent !Phasic; spontaneous;!--------! !jugular ! !compressible !! + + + +--------+ !Left subclavian !Patent !Phasic; spontaneous;normal!--------! ! ! !augmentation; compressible !! + + + +--------+ !Left axillary !Patent !Phasic; spontaneous;normal!--------! ! ! !augmentation; compressible !! + + + +--------+ !Left brachial !Patent !Phasic; spontaneous;normal!--------! ! ! !augmentation; compressible !! + + + +--------+ !Left cephalic !Totally thrombosed!Noncompressible !Acute! + + + +--------+ !Left basilic !Totally thrombosed!Noncompressible !Acute! + + + +--------+ !Left radial ! !Compressible!--------! + + + +--------+ !Left ulnar ! !Compressible!--------! + + + +--------+ *Velocities are expressed in cm/s, Diameters are expressed in mm Prepared and Electronically Authenticated Jaylin Kohli [id number]:31 Eyad Estrada MD US ORDERABLES Final R esult * (ABNORMAL) LACTATE DEHYDROGENASE (11/22/2024 4:56 AM CDT) Only the most recent of2 resultswithin the time period is included. LD (LACTATE DEHYDROGENASE) 251(H) 135 - 214 U/L 11/22/2024 5:48 AM CDT [facility] [employer] [facility] Blood Venipuncture / Unknown 11/22/2024 4:56 AM CDT 11/22/2024 5:06 AM CDT Lulú Rodriguez MD CHEMISTRY ORDERABLES Final Resu lt [facility] [employer] [facility] CLIA# [id number] [address] [place] [address] * HIV DETECTION W/REFLX CONFIRMATION (11/21/2024 5:46 PM CDT) Only the most recent of2 resultswithin the time period is included. [facility] HIV-1 AND 2 ABS AND HIV-1 AG Non-reacti ve Non-reacti ve 11/21/2024 7:08 PM CDT [facility] Blood Venipuncture / Unknown 11/21/2024 5:46 PM CDT 11/21/2024 6:24 PM CDT us Eyad Estrada MD CHEMISTRY ORDERABLES Fi nal Result [facility]# [id number] [address] [place] [address] * (ABNORMAL) BLOOD CULTURE MRSA/MSSA PCR PANEL (11/21/2024 4:23 PM CDT) [facility] MRSA/MSSA PCR Staph. aureus detected, methicillin resistant (MRSA)(A) No Staph aureus detected 11/22/2024 8:47 AM CDT [facility] Comment:In polymicrobial spe cimens, methicillin resistance may not be detected from the Staphylococcus (or S. aureus) that was detected or may be from only one of multiple Staphylococcus species that may be present in the specimen. Subculture and susceptibility testing are required in order to assign a resistant or sensitive phenotype to each isolate recovered from the blood culture sample. Blood (Peripheral) Venipuncture / Unknown 11/21/2024 4:23 PM CDT 11/21/2024 4:42 PM CDT Narrative [facility] - 11/22/2024 8:47 AM CDT This test is intended for the detection of Staphylococcus aureus (SA) and methicillin-resistant Staphylococcus aureus (MRSA) DNA directly from positive blood cultures. This test was developed and its performance characteristics determined by [facility]. It has not been cleared by U.S. Food and Drug Administration. The FDA has determined that such clearance or approval is not necessary. This test is used for clinical purposes. It should not be regarded as investigational or for research. This laboratory is certified under the Clinical Laboratory Improvement Amendments of 1988 (CLIA-88) as qualified to perform high complexity clinical laboratory testing. Eyad Estrada MD MICROBIOLOGY - GENERAL ORDERABLES Final Result [facility] CLIA# [id number] [address] [facility] [place] [address] * (ABNORMAL) HEPATIC FUNCTION PANEL (11/21/2024 7:03 AM CDT) TOTAL PROTEIN 6.0(L) 6.7 - 8.6 g/dL 11/21/2024 10:47 AM CDT [facility] ALBUMIN 3.0(L) 3.5 - 5.2 g/dL 11/21/2024 10:47 AM CDT [facility] BILIRUBIN TOTAL 0.3 0.0 - 1.2 mg/dL 11/21/2024 10:47 AM T [facility] BILIRUBIN DIRECT <0.2 <0.4 mg/dL 11/22/19 25 10:47 AM T [facility] ALKALINE PHOSPHATASE 113(H) 35 - 104 U/L 11/21/2024 10:47 AM T [facility] AST 13 <33 U/L 11/21/2024 10:47 AM [facility] ALT 16 <34 U/L 11/21/2024 10:47 AM T [facility] Blood Venipuncture / Unknown 11/21/2024 7:03 AM CDT 11/21/2024 7:18 AM CDT [facility] LABORATORY [facility] - 11/21/2024 10:47 AM CDT Samples containing indocyanine green cause interferences on Total and/or Direct Bilirubin and must not be measured. us Lulú Rodriguez MD CHEMISTRY ORDERABLES Final Resu lt [facility] LABORATORY SERVICES [facility]# [id number] [address] [place] [address] * IR BIOPSY BONE MARROW (11/20/2024 3:22 PM CDT) Anatomical Region Laterality Modality X-Ray Angiograph y 11/20/2024 3:26 PM CDT Impressions 11/20/2024 4:14 PM CDT IMPRESSION: Fluoroscopic guided bone marrow ASPIRATION and BIOPSY. DICTATION LOCATION: Location [address] [place] [address] Narrative 11/20/2024 4:14 PM CDT FLUORO GUIDED BONE MARROW BIOPSY AND BONE MARROW ASPIRATION DATE: 11/20/2024 3:22 PM HISTORY: Anemia thrombocytopenia SURGEON: Fartun Lan M.D. REFERENCE AIR KERMA DOSE: 2.4 mGy Fluoroscopy Time: 0.3 Minutes ANESTHESIA: Anesthesia was provided by the department of anesthesia services. TECHNIQUE: With the patient in a prone position, and under direct fluoroscopic guidance, the left posterior iliac spine was localized. A bone marrow ASPIRATION was performed. A bone marrow BIOPSY was obtained. The patient tolerated the procedure well Procedure Note Fartun Lan MD - 11/20/2024 FLUORO GUIDED BONE MARROW BIOPSY AND BONE MARROW ASPIRATION DATE: 11/20/2024 3:22 PM HISTORY: Anemia thrombocytopenia SURGEON: Fartun Lan M.D. REFERENCE AIR KERMA DOSE: 2.4 mGy Fluoroscopy Time: 0.3 Minutes ANESTHESIA: Anesthesia was provided by the department of anesthesia services. TECHNIQUE: With the patient in a prone position, and under direct fluoroscopic guidance, the left posterior iliac spine was localized. A bone marrow ASPIRATION was performed. A bone marrow BIOPSY was obtained. The patient tolerated the procedure well IMPRESSION: Fluoroscopic guided bone marrow ASPIRATION and BIOPSY. DICTATION LOCATION: Location [address] [place] [address] us Lulú Rodriguez MD IR ORDERABLES Final Result * BONE MARROW ASPIRATION & BIOPSY (11/20/2024 3:19 PM CDT) CASE REPORT Bone Marrow Pathology Report Case: [id number] Authorizing Provider: Fartun Lan MD Collected: 11/20/2024 03:19 PM Ordering Location: [facility] Surg Received: 11/20/2024 03:38 PM [facility] Pathologist: Adalgisa Bhagat MD Specimens: A) - Bone marrow, Core, left iliac B) - Bone marrow, Clot, left iliac C) - Bone marrow, left iliac D) - Peripheral Blood Smear E) - Bone marrow, left iliac 9:31 AM [facility] ADDENDUM 2 This addendum is issued to report the findings of MDS/CMML NexGen sequencing performed on the bone marrow aspirate at [employer]. Results: - SNVs/Indels: None detected - Pertinent negatives: No alterations detected in following genes: FLT3, IDH1, IDH2, NPM1, and TP53 No atypical myeloid clone was appreciated by normal chromosome analysis and NexGen sequencing studies, which argues against a diagnosis of myelodysplastic neoplasm or myeloproliferative neoplasm. The final diagnoses remain unchanged. 9:31 AM [facility] Addendum electronically signed by Adalgisa Bhagat MD on 12/04/2024 at 0931 CDT ADDENDUM 1 This addendum is issued to report the results of chromosome analysis, which shows a normal female karyotype: 46,XX[20]. Please see hyperlink below for scan of outside report. 9:31 AM [facility] Addendum electronically signed by Adalgisa Bhagat MD on 11/27/2024 at 1431 CDT FINAL DIAGNOSIS Bone marrow, left posterior iliac crest, aspirate, clot, and core biopsy: - Variably cellular bone marrow with megakaryocytic hyperplasia and scattered hypolobated forms - Occasional nonparatrabecular lymphoid aggregates, favor reactive - Decreased storage iron (1+) with no ringed sideroblasts - No significant blasts - See comment Bone marrow, left posterior iliac crest, aspirate for flow cytometry: - No monoclonal B-cell population, atypical T-cell population, or significant blast population detected Peripheral blood, morphologic review: - Marked normocytic anemia with no overt features of hemolysis - Leukocytosis with absolute neutrophilia and granulocytic left shift - Marked thrombocytopenia - No circulating blasts or overt features of dyspoiesis 9:31 AM [facility] at 1542 CDT DIAGNOSIS COMMENT Noted is the marked thrombocytopenia in a patient with no splenomegaly or hepatomegaly, status post corticosteroid administration. The bone marrow findings in this biopsy are nonspecific, especially in light of prebiopsy corticosteroid use. Megakaryocytes are increased with scattered hypolobated forms. This may be reactive to the patient's thrombocytopenia or may be evidence of dyspoiesis. Moreover, lymphocytes are mildly increased and occasional lymphoid aggregates are appreciated. No atypical B or T-cell population is present by flow cytometry. Therefore, this finding is thought to be reactive. Bone marrow lymphocytes can be increased in cytopenia can be seen in collagen vascular diseases and autoimmune diseases. Suggest testing for autoimmune diseases to further evaluate. Chromosome analysis and NexGen sequencing studies are in process to further evaluate for an abnormal myeloid clone, and the results of which will be reported in addenda. 9:31 AM [facility] GROSS DESCRIPTION The specimen is received in a container labeled Stacia Elirs and left iliac It consists of a 1.8 x 0.2 x 0.2 cm bone core which is entirely submitted in A1 after decalcification. A blood clot is prepared from the bone marrow aspirate and submitted in B1. A [id number] slide of the bone marrow aspirate is reviewed, and a portion of the bone marrow aspirate is submitted for flow cytometry. 9:31 AM [facility] MICROSCOPIC DESCRIPTION The slides are labeled [id number] and Stacia May. CBC indices (11/20/2024): WBC-16.3, hemoglobin-7.9, hematocrit-26.5, MCV-93.3, MCH-27.8, RDW-15.9, platelets-45. PERIPHERAL BLOOD SMEAR: Review of the peripheral blood smear shows findings consistent with the CBC indices and differential. There is a marked normochromic normocytic anemia with mild anisopoikilocytosis with scattered target cells. Schistocytes are not readily identified. Polychromasia is minimal with rare circulating nucleated red blood cell. Leukocytes are increased with absolute neutrophilia. There is a granulocytic left shift with circulating metamyelocytes. Neutrophils have normal nuclear segmentation, cytoplasmic hypergranularity, and vacuoles, favoring reactive. No circulating blasts or overt features of dyspoiesis is appreciated. Lymphocytes are comprised predominately of small, mature forms with occasional reactive forms. Platelets are markedly decreased with unremarkable morphology. BONE MARROW ASPIRATE: The bone marrow aspirate is adequate with spicules and appears mildly hypercellular for the patient's age. Megakaryocytes are present in normal number and have predominantly unremarkable morphology. Occasional small, hypolobated forms are appreciated. Myeloids and erythroids are present in normal proportion. Many of the myelocytes, metamyelocytes, and monocytes have perinuclear vacuoles, compatible with recent steroid administration. Myeloids and erythroids show progressive maturation with no overt features of dyspoiesis. The M: E ratio is within normal limits. Blasts are not increased. Plasma cells and lymphocytes are present in normal number with unremarkable morphology. An iron stain performed on the bone marrow aspirate shows 1+ storage iron with no ring sideroblasts. 200-CELL MANUAL DIFFERENTIAL COUNT: Blasts -0% Promyelocytes -2% Myelocytes -17% Metamyelocytes -10% Bands -22% Neutrophils -9% Erythroids -14% Plasma cells -0% Lymphocytes -18% Monocytes -5% Eosinophils -3% Basophils -0% BONE MARROW CORE BIOPSY: The bone marrow core biopsy is adequate and is variably cellular with a cellularity ranging from approximately 20% to 70% with an overall cellularity of approximately 50%. Megakaryocytes are mildly increased and occasional loose cluster is appreciated. The megakaryocytes have predominantly normal morphology with scattered small, hypolobated forms. Myeloids and erythroids show progressive maturation. The M: E ratio is within normal limits. Blasts are not increased. Lymphocytes and plasma cells are present in normal number. Lymphoid aggregates are not readily appreciated on routine-stained sections. CLOT SECTION: Sections of the clot show findings similar to that seen in the bone marrow core biopsy with a single lymphoid aggregate appreciated with routine-stained sections. An iron stain performed on the clot section shows 1+ storage iron. CD20 and CD3 immunohistochemical stains were also performed on the blood clot and highlight mildly increased lymphocytes consisting of an admixture of B and T cells, respectively, with a slight T-cell predominance, with especially within scattered lymphoid aggregates. IMMUNOHISTOCHEMISTRY /SPECIAL STAINS: Immunohistochemical stains were performed in addition to flow cytometry on the bone marrow core biopsy to better appreciate the cellular constituents in an architectural context. CD34 highlights less than 1% of the bone marrow cellularity as singly scattered blasts. CD31 highlights increased megakaryocytes with readily appreciated small, hypolobated forms. Myeloperoxidase and E-cadherin highlight maturing myeloids and erythroids present normal proportion. CD138 highlights approximately 2% of the bone marrow cellularity as singly scattered plasma cells. A reticulin stain shows predominantly no significant myelofibrosis (MF-0) with a focus of mildly increased fibrosis (MF-1). 9:31 AM [facility] OPERATIVE PROCEDURE Bone marrow biopsy 9:31 AM [facility] CLINICAL INFORMATION Marked thrombocytopenia 9:31 AM [facility] IMMUNOPHENOTYPIC ANALYSIS Flow cytometric analysis performed on the bone marrow aspirate at [facility] shows 81% of the total events are granulocytes with no significant CD34 positive blast population (less than 1%). 14% of the total events are lymphocytes, consisting of an admixture of CD19 positive, CD20 positive B cells (44%) and CD3 positive T cells (53%). The B cells are polytypic with no significant expression of CD5, CD10, or CD23. The T cells have a normal CD4/CD8 ratio (1.8: 1) and no aberrant antigen loss of CD2, CD5, or CD7. 3% of the total events are monocytes with a mature immunophenotype, and less than 1% of the total events are NK cells and plasma cells. The technical component only of flow cytometry analysis (24 markers) is performed by [employer], [place], [place]. To view the report, click the link below. 9:31 AM [facility] COMMENT Special stain, immunohistochemical, and/or in situ hybridization results are interpreted with controls that demonstrate appropriate staining reactions. Note on use of immunohistochemistry reagents and in situ hybridization probes: These tests were developed and their performance characteristics determined by [facility], Department of Laboratory Medicine. It has not been cleared or approved by the U.S. Food and Drug Administration. The FDA has determined that such clearance or approval is not necessary. The test is used for clinical purposes. It should not be regarded as investigational or for research. This laboratory is certified to perform high complexity testing. Frozen section/operating room consultation, gross examination and dissection, and case sign out may have been performed in part or completely in the following laboratories: [facility], CLIA #[id number] [address] [place] [place] [address] [facility], CLIA #[id number] [address] [place] [address] [facility], CLIA #[id number] [address] [place] [address] This report was created with the [employer] voice-activated dictation system. Inherent to this system is the possibility of syntax, grammar, punctuation and other errors that could impact the interpretation of the report. If there are interpretative questions about aspects of this report, please contact the performing pathologist. 9:31 AM CDT [facility] Bone marrow ALL BONE MARROW / Unknown Collection / Unknown 11/20/2024 3:19 PM CDT 11/20/2024 3:38 PM CDT Bone marrow specimen (specimen) ALL BONE MARROW / Unknown 11/20/2024 3:19 PM CDT 11/20/2024 3:38 PM CDT Bone marrow specimen (specimen) ALL BONE MARROW / Unknown 11/20/2024 3:19 PM CDT 11/20/2024 3:38 PM CDT Bone marrow specimen (specimen) (Peripheral Blood Smear) 11/20/2024 3:19 PM CDT 11/20/2024 3:38 PM CDT Bone marrow specimen (specimen) ALL BONE MARROW / Unknown 11/20/2024 3:19 PM CDT 11/20/2024 3:38 PM CDT us Fartun Edyta ULRICH PATHOLOGY/CYTOLOGY ORDERABLES Ed ited Result - Final [facility] CLIA# [id number] [address] [facility] [place] [address] * (ABNORMAL) CANCER ANTIGEN 19-9 (11/20/2024 2:49 PM CDT) CA 19-9 85(H) <36 U/mL 11/20/2024 7:54 PM CDT [facility] Blood Venipuncture / Unknown 11/20/2024 2:49 PM CDT 11/20/2024 2:53 PM CDT [facility] - 11/20/2024 7:54 PM CDT The concentration of CA 19-9 in a given specimen, as determined by assays from different manufacturers, can vary because of differences in assay methods and reagent specificity. Values obtained with different assay methods cannot be used interchangeably. The testing method in use is the DIANE Electrochemiluminescence immunoassay. Results cannot be interpreted as absolute evidence of the presence or absence of malignancy. Values should be interpreted with caution during . Eyad Estrada MD CHEMISTRY ORDERABLES Fi nal Result Performing Organization Address [facility] Co de Phone Number [facility]# [id number] [address] [facility] [place] [address] * CANCER ANTIGEN 125 (11/20/2024 2:49 PM CDT) Pathologist [facility] CA 125 22.9 <35.0 U/mL 11/20/2024 3:52 PM CDT [facility] Blood Venipuncture / Unknown 11/20/2024 2:49 PM CDT 11/20/2024 2:53 PM CDT [facility] - 11/20/2024 3:52 PM CDT The concentration of CA 125 in a given specimen, as determined by assays from different manufacturers, can vary because of differences in assay methods and reagent specificity. Values obtained with different assay methods cannot be used interchangeably. The testing method in use is the DIANE Electrochemiluminescence immunoassay. Results cannot be interpreted as absolute evidence of the presence or absence of malignancy. Values should be interpreted with caution during . Eyad Estrada MD CHEMISTRY ORDERABLES Fi nal Result Performing Organization Address [facility] Co de Phone Number [facility]# [id number] [address] [place] [address] * (ABNORMAL) CEA (11/20/2024 2:49 PM CDT) CEA 3.9(H) <3.9 ng/mL 11/20/2024 7:54 PM CDT [facility] Blood Venipuncture / Unknown 11/20/2024 2:49 PM CDT 11/20/2024 2:53 PM CDT Narrative [facility] - 11/20/2024 7:54 PM CDT Reference Range: Non-smoker: </= 3.8 ng/mL Smoker: < 5.5 ng/mL The concentration of CEA in a given specimen, as determined by assays from different manufacturers, can vary because of differences in assay methods and reagent specificity. Values obtained with different assay methods cannot be used interchangeably. The testing method in use is the DIANE Electrochemiluminescence immunoassay. Results cannot be interpreted as absolute evidence of the presence or absence of malignancy. Values should be interpreted with caution during . Eyad Estrada MD CHEMISTRY ORDERABLES Fi nal Result Performing Organization Address [facility] Co de Phone Number [facility] CLIA# [id number] [address] [place] [address] * CT ABDOMEN PELVIS W CONTRAST (11/20/2024 2:09 PM CDT) Anatomical Region Laterality Modality Abdomen Computed Tomogra phy 11/20/2024 1:59 PM CDT Impressions 11/20/2024 3:01 PM CDT IMPRESSION: 1. Large cystic mass in the pelvis with septations and discontinuous peripheral calcification. This is most likely gynecologic in origin and is suspicious for cystic ovarian neoplasm. Severe chronic hydrosalpinx would be an additional consideration. Gynecologic oncology consultation is recommended. 2. Distal bilateral ureteral obstruction secondary to the cystic pelvic mass with mild right and moderate left hydroureteronephrosis. 3. Left-sided urothelial thickening and periureteral stranding may indicate a superimposed infection. 4. Marked distention of the urinary bladder which is displaced anteriorly by the cystic pelvic mass. 5. Age-indeterminate chronic appearing T12, L1, and L5 superior endplate compression deformities. The examination was performed with the adjustment of mA according to the patient size and/or the use of Iterative Reconstruction Technique. DICTATION LOCATION: Location 4 A secure chat message was sent in [employer] to Dr. Ohara at the time of dictation with confirmation of receipt. Narrative 11/20/2024 3:[address] ABDOMEN AND PELVIS WITH IV CONTRAST WITH REFORMATTED IMAGES DATE: 11/20/2024 2:09 PM HISTORY: UTI, recurrent/complicated (Female). Encounter for blood typing. COMPARISON: No relevant prior studies. TECHNIQUE: Multislice helical with multiplanar reformats. CONTRAST: Iopamidol 61% intravenous solution Given:90 mL. FINDINGS: LOWER CHEST: No acute consolidation in the visible lung bases. LIVER: Normal portal and hepatic vein enhancement. No focal liver lesions. GALLBLADDER AND BILIARY: No calcified gallstones. No CT apparent gallbladder wall thickening or surrounding fluid. No biliary ductal dilation. PANCREAS: Homogeneous pancreas. No ductal dilation or pancreatic centered inflammatory changes. SPLEEN: No focal splenic lesions. ADRENAL GLANDS: Symmetric. No adrenal mass. KIDNEYS/URETERS: Symmetric renal parenchymal enhancement. There is moderate left hydroureteronephrosis. There is left urothelial thickening and mild degree of periureteral stranding. There is no ureteral calculus. The ureter tapers in the left aspect of the pelvis adjacent to a cystic pelvic mass. There is mild right hydroureteronephrosis. No significant urothelial enhancement or periureteral stranding on the right. No right ureteral calculus. There is abrupt tapering of the ureter at the level of a cystic pelvic mass. URINARY BLADDER: The urinary bladder is distended and displaced anteriorly by a large cystic pelvic mass. REPRODUCTIVE ORGANS: There is a large irregular cystic mass in the pelvis which measures 14.7 x 10.6 x 13.4 cm. This has discontinuous peripheral calcifications and a few internal septations. This appears to anteriorly displace the uterus which appears to be compressed between the cystic mass and the urinary bladder. Neither ovary is discretely visualized. STOMACH AND BOWEL: The stomach appears normal for the degree of distention. The small bowel loops are nondilated. The colon is normal in caliber without convincing inflammatory thickening. The appendix is normal. VESSELS: No aortic aneurysm. No major aortic branch occlusion. LYMPH NODES: No pathologic lymph node enlargement. PERITONEUM/RETROPERITONEUM: No pneumoperitoneum. No substantive free fluid or organized fluid collections. ABDOMINAL WALL: Scattered densities in the abdominal wall subcutaneous fat which likely represent medication injection sites. BONES: Age-indeterminate but chronic appearing T12, L1, and L5 superior endplate compression deformities without significant bone retropulsion. ADDITIONAL: None. Procedure Note Levon MANJARREZ, Ezra London MD - 11/20/2024 CT ABDOMEN AND PELVIS WITH IV CONTRAST WITH REFORMATTED IMAGES DATE: 11/20/2024 2:09 PM HISTORY: UTI, recurrent/complicated (Female). Encounter for blood typing. COMPARISON: No relevant prior studies. TECHNIQUE: Multislice helical with multiplanar reformats. CONTRAST: Iopamidol 61% intravenous solution Given:90 mL. FINDINGS: LOWER CHEST: No acute consolidation in the visible lung bases. LIVER: Normal portal and hepatic vein enhancement. No focal liver lesions. GALLBLADDER AND BILIARY: No calcified gallstones. No CT apparent gallbladder wall thickening or surrounding fluid. No biliary ductal dilation. PANCREAS: Homogeneous pancreas. No ductal dilation or pancreatic centered inflammatory changes. SPLEEN: No focal splenic lesions. ADRENAL GLANDS: Symmetric. No adrenal mass. KIDNEYS/URETERS: Symmetric renal parenchymal enhancement. There is moderate left hydroureteronephrosis. There is left urothelial thickening and mild degree of periureteral stranding. There is no ureteral calculus. The ureter tapers in the left aspect of the pelvis adjacent to a cystic pelvic mass. There is mild right hydroureteronephrosis. No significant urothelial enhancement or periureteral stranding on the right. No right ureteral calculus. There is abrupt tapering of the ureter at the level of a cystic pelvic mass. URINARY BLADDER: The urinary bladder is distended and displaced anteriorly by a large cystic pelvic mass. REPRODUCTIVE ORGANS: There is a large irregular cystic mass in the pelvis which measures 14.7 x 10.6 x 13.4 cm. This has discontinuous peripheral calcifications and a few internal septations. This appears to anteriorly displace the uterus which appears to be compressed between the cystic mass and the urinary bladder. Neither ovary is discretely visualized. STOMACH AND BOWEL: The stomach appears normal for the degree of distention. The small bowel loops are nondilated. The colon is normal in caliber without convincing inflammatory thickening. The appendix is normal. VESSELS: No aortic aneurysm. No major aortic branch occlusion. LYMPH NODES: No pathologic lymph node enlargement. PERITONEUM/RETROPERITONEUM: No pneumoperitoneum. No substantive free fluid or organized fluid collections. ABDOMINAL WALL: Scattered densities in the abdominal wall subcutaneous fat which likely represent medication injection sites. BONES: Age-indeterminate but chronic appearing T12, L1, and L5 superior endplate compression deformities without significant bone retropulsion. ADDITIONAL: None. IMPRESSION: 1. Large cystic mass in the pelvis with septations and discontinuous peripheral calcification. This is most likely gynecologic in origin and is suspicious for cystic ovarian neoplasm. Severe chronic hydrosalpinx would be an additional consideration. Gynecologic oncology consultation is recommended. 2. Distal bilateral ureteral obstruction secondary to the cystic pelvic mass with mild right and moderate left hydroureteronephrosis. 3. Left-sided urothelial thickening and periureteral stranding may indicate a superimposed infection. 4. Marked distention of the urinary bladder which is displaced anteriorly by the cystic pelvic mass. 5. Age-indeterminate chronic appearing T12, L1, and L5 superior endplate compression deformities. The examination was performed with the adjustment of mA according to the patient size and/or the use of Iterative Reconstruction Technique. DICTATION LOCATION: Location 4 A secure chat message was sent in [employer] to Dr. Ohara at the time of dictation with confirmation of receipt. us Eyad Estrada MD CT ORDERABLES Final R esult * (ABNORMAL) ZINC LEVEL (11/20/2024 10:15 AM CDT) ZINC LEVEL 29(L) 60 - 130 mcg/dL 11/22/2024 9:48 PM CDT [facility] Comment: (Note) This test was developed and its analytical performance characteristics have been determined by [employer]. It has not been cleared or approved by the FDA. This assay has been validated pursuant to the CLIA regulations and is used for clinical purposes. [facility] [address] [address],[address] [facility] [address] Piero Avery MD, PhD Blood Venipuncture / Unknown 11/20/2024 10:15 AM CDT 11/20/2024 10:28 AM CDT Narrative [facility] - 11/22/2024 9:48 PM CDT Performing Organization Information: Site ID: [id number] Name: [facility] Address: [address] [place] [address], [address] [place] [id number] Director: Piero Avery MD,PhD Lulú Rodriguez MD CHEMISTRY ORDERABLES Final Resu lt Performing Organization Address [facility] Co de Phone Number [facility] [phone] * COPPER LEVEL (11/20/2024 10:15 AM CDT) COPPER LEVEL 125 70 - 175 mcg/dL 11/22/2024 9:48 PM CDT [facility] Comment: (Note) This test was developed and its analytical performance characteristics have been determined by [employer]. It has not been cleared or approved by the FDA. This assay has been validated pursuant to the CLIA regulations and is used for clinical purposes. [facility] [address] [place] [address],[address] [place] [address] Piero Avery MD, PhD Blood Venipuncture / Unknown 11/20/2024 10:15 AM CDT 11/20/2024 10:28 AM CDT Narrative [facility] - 11/22/2024 9:48 PM CDT Performing Organization Information: Site ID: [id number] Name: [facility] Address: [address] [place] [address], [address] [address] Director: Piero Avery MD,PhD Lulú Rodriguez MD CHEMISTRY ORDERABLES Final Resu lt Performing Organization Address [facility] Co de Phone Number [facility] [phone] * (ABNORMAL) URINALYSIS WITH REFLEX MICROSCOPIC (11/20/2024 12:23 AM CDT) COLOR UA Yellow Pale to Dark Yellow 11/20/2024 1:04 AM CDT [facility] CLARITY UA Cloudy(A) Clear 11/20/2024 1:04 AM [employer] [facility] SPECIFIC GRAVITY UA 1.016 1.003 - 1.035 11/20/2024 1:04 AM [facility] PH UA 6.0 5.0 - 8.0 11/20/2024 1:04 AM [facility] LEUKOCYTE ESTERASE UA 3+(A) Negative 11/20/2024 1:04 AM [facility] [employer] [facility] - [facility] NITRITE UA Positive(A) Negative 11/20/2024 1:04 AM [facility] [employer] [facility] - [facility] PROTEIN UA 1+(A) Negative 11/20/2024 1:04 AM [facility] [employer] [facility] GLUCOSE UA Negative Negative 11/20/2024 1:04 AM [employer] [facility] KETONES UA Negative Negative 11/20/2024 1:04 AM [employer] [facility] UROBILINOGEN UA Normal <2.0 mg/dL 1:04 AM [employer] BILIRUBIN UA Negative Negative 11/20/2024 1:04 AM [employer] [facility] BLOOD UA 2+(A) Negative 11/20/2024 1:04 AM [facility] WBC UA >100(A) 0 - 2 /hpf 11/20/2024 1:04 AM [employer] [facility] RBC UA 11-25(A) 0 - 2 /hpf 11/20/2024 1:04 AM [facility] BACTERIA UA 3+(A) Negative /hpf 11/20/2024 1:04 AM [facility] EPITHELIAL CELLS, URINE 0-5 0 - 5 /hpf 11/20/2024 1:04 AM [facility] [employer] [facility] WBC CLUMPS Present(A) Absent 11/20/2024 1:04 AM [employer] [facility] Urine URINE SPECIMEN OBTAINED BY CLEAN CATCH PROCEDURE / Unknown Collection / Unknown 11/20/2024 12:23 AM CDT 11/20/2024 12:28 AM CDT Aniya Galan DO URINE ORDERABLES Final Result Performing Organization Address [facility]/ZIP Co de Phone Number [facility] CLIA# [id number] [address] [place] [address] * (ABNORMAL) URINE CULTURE (11/20/2024 12:23 AM CDT) CULTURE METHICILLIN RESISTANT STAPHYLOCOCCUS AUREUS(A) LUCIAN MCG/ML 11/22/2024 9:39 AM CDT [facility] [employer] [facility] Urine URINE SPECIMEN OBTAINED BY CLEAN CATCH PROCEDURE / Unknown Collection / Unknown 11/20/2024 12:23 AM CDT 11/20/2024 12:28 AM CDT Narrative Organism Antibiotic Method Susceptibility Staphylococcus aureus, Methicillin resistant OXACILLIN (Nafcillin) LUCIAN MCG/ML >=4 mcg/mL: Resistant Staphylococcus aureus, Methicillin resistant VANCOMYCIN LUCIAN MCG/ML 1 mcg/mL: Susceptible Staphylococcus aureus, Methicillin resistant DOXYCYCLINE LUCIAN MCG/ML <=0.5 mcg/mL: Susceptible Staphylococcus aureus, Methicillin resistant NITROFURANTOIN LUCIAN MCG/ML <=16 mcg/mL: Susceptible Staphylococcus aureus, Methicillin resistant TRIMETHOPRIM/ SULFAMETHOXAZOLE LUCIAN MCG/ML <=10 mcg/mL: Susceptible Staphylococcus aureus, Methicillin resistant RIFAMPIN LUCIAN MCG/ML <=0.5 mcg/mL: Susceptible Comment:Rifampin gerardo uld NOT be used alone for antimicrobial therapy. Eyad Estrada MD MICROBIOLOGY - GENERAL ORDERABLES Final Result [facility] [employer] [facility] CLIA# [id number] [address] [place] [address] * (ABNORMAL) HCG QUALITATIVE, URINE (11/20/2024 12:21 AM CDT) HCG QUAL URINE Negative Negative 11/20/2024 1:05 AM CDT [facility] [employer] [facility] COLOR UA Yellow Pale to Dark Yellow 11/20/2024 1:05 AM CDT [facility] CLARITY UA Cloudy(A) Clear 11/20/2024 1:05 AM CDT [facility] Urine (Urine, straight in/out catheter) Collection / Unknown 11/20/2024 12:21 AM CDT 11/20/2024 12:27 AM CDT Aniya Galan DO URINE ORDERABLES Final Result [facility] CLIA# [id number] [address] [place] [address] * US VENOUS DOPPLER LEG BILATERAL (11/19/2024 10:13 AM CDT) Anatomical Region Laterality Modality Lower Extremity Ultrasound 11/19/2024 9:39 AM CDT Narrative 11/19/2024 12:13 PM [address]T [address] [address] [email or web address] Venous Exam Complete Lower Extremity Duplex Patient: Stacia May Study ID: [id number] Gender: F : 1990 Age: 34 Race: UNK Height Study Date: 11/19/2024 Weight: Access. #: [id number] *Referring Physician:* Shane Ohara Blair Elizabeth *Ordering Physician:* Aniya Galan *Fruit Room Hand:* Peggy Dunaway History: Swelling of both lower extremities. PMH: No prior study is available for comparison. Study data: Study status: Routine. Complete lower extremity venous duplex evaluation. Doppler flow study including spectral analysis, color and galloway scale imaging. Birthdate: Patient birthdate: 1990. Age: Patient is 34year(s) old. Sex: gender: female. Study date: Study date: 11/19/2024. Study time: 09:39 AM. Location: Vascular laboratory. Patient status: Inpatient. Impressions Study data: No prior study is available for comparison. No evidence of deep vein thrombosis involving the visualized veins of the bilateral lower extremities. Tables: Venous: + +-------+ + !Location !Overall!Flow properties ! + +-------+ + !Right common femoral !Patent !Phasic; spontaneous; normal augmentation; ! ! ! !compressible; no reflux ! + +-------+ + !Right femoral !Patent !Compressible ! + +-------+ + !Right profunda femoral!Patent !Compressible ! + +-------+ + !Right popliteal !Patent !Phasic; spontaneous; normal augmentation; ! ! ! !compressible; no reflux ! + +-------+ + !Right posterior tibial!Patent !Compressible ! + +-------+ + !Right peroneal !Patent !Compressible ! + +-------+ + !Left common femoral !Patent !Phasic; spontaneous; normal augmentation; ! ! ! !compressible; no reflux ! + +-------+ + !Left femoral !Patent !Compressible ! + +-------+ + !Left profunda femoral !Patent !Compressible ! + +-------+ + !Left popliteal !Patent !Phasic; spontaneous; normal augmentation; ! ! ! !compressible; no reflux ! + +-------+ + !Left posterior tibial !Patent !Compressible ! + +-------+ + !Left peroneal !Patent !Compressible ! + +-------+ + *Velocities are expressed in cm/s, Diameters are expressed in mm Prepared and Electronically Authenticated Jaylin Kohli [id number] Procedure Note Jaylin Kohli MD - 11/19/[address] [address] [email or web address] Venous Exam Complete Lower Extremity Duplex Patient: Stacia May Study ID: [id number] Gender: F : 1990 Age: 34 Race: UNK Height Study Date: 11/19/2024 Weight: Access. #: [id number] *Referring Physician:* Shane Ohara, Arnol Alex *Ordering Physician:* Aniya GalanFruit Room Hand:* Peggy Dunaway History: Swelling of both lower extremities. PMH: No prior study is available for comparison. Study data: Study status: Routine. Complete lower extremity venous duplex evaluation. Doppler flow study including spectral analysis,color and galloway scale imaging. Birthdate: Patient birthdate: 1990.Age: Patient is 34year(s) old. Sex: gender: female. Study date:Study date: 11/19/2024. Study time: 09:39 AM. Location: Vascular laboratory. Patient status: Inpatient. Impressions Study data: No prior study is available for comparison. No evidence ofdeep vein thrombosis involving the visualized veins of the bilateral lower extremities. Tables: Venous: + +-------+ + !Location !Overall!Flow properties! + +-------+ + !Right common femoral !Patent !Phasic; spontaneous; normal augmentation;! ! ! !compressible; no reflux! + +-------+ + !Right femoral !Patent !Compressible! + +-------+ + !Right profunda femoral!Patent !Compressible! + +-------+ + !Right popliteal !Patent !Phasic; spontaneous; normal augmentation;! ! ! !compressible; no reflux! + +-------+ + !Right posterior tibial!Patent !Compressible! + +-------+ + !Right peroneal !Patent !Compressible! + +-------+ + !Left common femoral !Patent !Phasic; spontaneous; normal augmentation;! ! ! !compressible; no reflux! + +-------+ + !Left femoral !Patent !Compressible! + +-------+ + !Left profunda femoral !Patent !Compressible! + +-------+ + !Left popliteal !Patent !Phasic; spontaneous; normal augmentation;! ! ! !compressible; no reflux! + +-------+ + !Left posterior tibial !Patent !Compressible! + +-------+ + !Left peroneal !Patent !Compressible! + +-------+ + *Velocities are expressed in cm/s, Diameters are expressed in mm Prepared and Electronically Authenticated Jyalin Kohli [id number] us Aniya Galan DO US ORDERABLES Final Result * (ABNORMAL) T4 FREE (11/18/2024 5:42 AM CDT) Only the most recent of2 resultswithin the time period is included. T4 FREE 1.93(H) 0.90 - 1.70 ng/dL 11/18/2024 7:03 AM CDT [facility] Blood Venipuncture / Unknown 11/18/2024 5:42 AM CDT 11/18/2024 5:50 AM CDT us Aniya Galan DO CHEMISTRY ORDERABLES F inal Result [facility] [employer] [facility] CLIA# [id number] [address] [address] * (ABNORMAL) DIC PROFILE (11/17/2024 10:15 AM CDT) Only the most recent of2 resultswithin the time period is included. PROTIME 13.8 12.7 - 15.1 Seconds 11/17/2024 10:43 AM T [facility] [employer] [facility] INR 1.1 0.9 - 1.1 11/17/2024 10:43 AM T [facility] [employer] [facility] Comment: INR Therapeutic Range: Adult: 2.0 - 3.0 for pulmonary embolism or prophylaxis against venous thrombosis or systemic embolization. 2.0 - 3.0 for patients with tissue heart valves. 2.5 - 3.5 for patients with mechanical heart valves or post DE. Pediatric (12 years and under): 1.5 - 3.0 Although the target range in children is not well established, INR values of 1.5 - 3.0 are recommended for most patients. Higher values have been used in children with prosthetic cardiac valves and hereditary clotting disorders. (<3 days) therapeutic ranges have not been established PTT 48.7(H) 24.4 - 36.4 seconds 11/17/2024 10:43 AM [facility] [employer] [facility] Comment: PTT Therapeutic Range: Heparin Level PTT (seconds) <0.10 units/mL <55.8 0.10 - 0.30 units/mL 55.8 - 74.3 0.30 - 0.70 units/mL* 74.3 - 111.2* 0.70 - 1.00 units/mL 111.2 - 138.9 *corresponds to therapeutic range for unfractionated heparin FIBRINOGEN 802(H) 205 - 450 mg/dL 11/17/2024 10:43 AM CDT [facility] D-DIMER QUANT 1.09(H) <0.50 ug/mL FEU 11/17/2024 10:43 AM CDT [facility] Comment: The DIC reference range is not clearly established in uncomplicated pregnancies. Values above the upper limit of the reference range are common from the 31st to 40th week of . High negative predictive values for DVT have been reported with the current methodology, as part of a comprehensive medical examination, including risk stratification. Various clinical studies utilizing this method have shown that a result of <0.5 mcg/ml FEU excludes deep vein thrombosis and pulmonary embolism with high sensitivity when used in conjunction with a non-high clinical pre-test probability assessment. Blood Venipuncture / Unknown 11/17/2024 10:15 AM CDT 11/17/2024 10:23 AM CDT us Lulú Rodriguez MD HEMATOLOGY ORDERABLES Final Res ult [facility]# [id number] [address] [place] [address] * (ABNORMAL) EBV ANTIBODY PANEL (11/17/2024 10:15 AM CDT) Pathologist [facility] EBV IGM, VCA <36.00 U/mL 11/19/2024 3:07 PM CDT [facility] [facility] Comment: U/mL Interpretation ---- <36.00 Negative 36.00-43.99 Equivocal >43.99 Positive EBV IGG, VCA 162.00(H) U/mL 11/19/2024 3:07 PM CDT [facility] Comment: U/mL Interpretation ---- <18.00 Negative 18.00-21.99 Equivocal >21.99 Positive EBV NUC IGG 38.60(H) U/mL 11/19/2024 3:07 PM CDT [facility] Comment: U/mL Interpretation ---- <18.00 Negative 18.00-21.99 Equivocal >21.99 Positive EBV INTERP: SEE COMMENT 11/19/2024 3:07 PM CDT [facility] Comment: 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 In infants, a similar pattern may occur as a result of passive maternal transfer of antibody. Blood Venipuncture / Unknown 11/17/2024 10:15 AM CDT 11/17/2024 10:23 AM CDT Narrative [facility] - 11/19/2024 3:07 PM CDT Performing Organization Information: Site ID: [id number] Name: [facility] Address: [address] [facility] [place] [address] Director: Jazmyne Ferrell MD us Lulú Rodriguez MD CHEMISTRY ORDERABLES Final Resu lt [facility] [phone] * CMV IGG AND IGM ANTIBODIES (11/17/2024 10:15 AM CDT) CMV IGG <0.60 U/mL 11/19/2024 3:07 PM CDT [facility] Comment: U/mL Interpretation ----- <0.60 Negative 0.60-0.69 Equivocal > or = 0.70 Positive A positive result indicates that the patient has antibody to CMV. It does not differentiate between an active or past infection. CMV IGM <30.00 AU/mL 11/19/2024 3:07 PM CDT [facility] Comment: AU/mL Interpretation ----- <30.00 No Antibody Detected 30.00-34.99 Equivocal > or = 35.00 Antibody Detected Results from any one IgM assay should not be used as a sole determinant of a current or recent infection. Because an IgM test can yield false positive results and low level IgM antibody may persist for more than 12 months post infection, reliance on a single test result could be misleading. Acute infection is best diagnosed by demonstrating the conversion of IgG from negative to positive. If an acute infection is suspected, consider obtaining a new specimen and submit for both IgG and IgM testing in two or more weeks. Blood Venipuncture / Unknown 11/17/2024 10:15 AM CDT 11/17/2024 10:23 AM CDT Narrative [facility] - 11/19/2024 3:07 PM CDT Performing Organization Information: Site ID: [id number] Name: [facility] Address: [address] [place] [address] Director: Jazmyne Ferrell MD Lulú Rodriguez MD CHEMISTRY ORDERABLES Final Resu Performing Organization Address City/[facility]/ZIP Co de Phone Number [facility] [phone] * HEPATITIS B CORE AB TOTAL (11/16/2024 4:00 PM CDT) Pathologist [facility] HEPATITIS B CORE AB TOTAL Non-react geraldien Non-react geraldine 11/17/2024 11:25 AM CDT [facility] Comment:Antibodies to HBc we re not detected; does not exclude the possibility of exposure to HBV. Blood Venipuncture / Unknown 11/16/2024 4:00 PM CDT 11/16/2024 4:04 PM CDT Lulú Rodriguez MD CHEMISTRY ORDERABLES Final Resu Performing Organization Address [facility]/ZIP Co de Phone Number [facility] CLIA # [id number] [address] [address] [place] [address] * CARDIOLIPIN IGG/IGM (11/16/2024 4:00 PM CDT) Pathologist [facility] CARDIOLIPIN IGG AB <2.0 GPL-U/mL 2024 12:02 PM CDT [facility] Comment: Value Interpretation ----- < 20.0 Antibody not detected > or = 20.0 Antibody detected CARDIOLIPIN IGM AB <2.0 MPL-U/mL 2024 12:02 PM CDT [facility] Comment: Value Interpretation ----- < 20.0 Antibody not detected > or = 20.0 Antibody detected The antiphospholipid antibody syndrome (APS) is a clinical-pathologic correlation that includes a clinical event (e.g. arterial or venous thrombosis, morbidity) and persistent positive antiphospholipid antibodies (IgM, IgG Cardiolipin or b2GPI antibodies greater than the 99th percentile; or a lupus anticoagulant). International consensus guidelines for APS suggest waiting at least 12 weeks before retesting to confirm antibody persistence. The Systemic Lupus International Collaborating Clinics immunological classification criteria for systemic lupus erythematosus (SLE) include testing for isotype IgA, which has yet to be incorporated into APS criteria. Low level antiphospholipid antibodies may sometimes be detected in the setting of infection, drug therapy or aging. For additional information, please refer to http://education.Eldarion/faq/ZTD434 (This link is being provided for informational/ educational purposes only.) Blood Venipuncture / Unknown 11/16/2024 4:00 PM CDT 11/16/2024 4:04 PM CDT Narrative [facility] - 11/19/2024 12:02 PM CDT Performing Organization Information: Site ID: Name: [facility] Address: [address] [place] [phone] Director: Shantanu Rodriguez us Lulú Rodriguez MD CHEMISTRY ORDERABLES Final Resu lt [facility] [phone] * HEPATITIS B SURFACE ANTIGEN (11/16/2024 4:00 PM CDT) HEPATITIS B SURFACE AG NON-REACT GERALDINE Non-react geraldine 11/16/2024 5:01 PM CDT [facility] Comment:A non-reactive test result does not exclude the possibility of exposure to or infection with hepatitis B. Blood Venipuncture / Unknown 11/16/2024 4:00 PM CDT 11/16/2024 4:04 PM CDT Lulú Rodriguez MD CHEMISTRY ORDERABLES Final Resu lt [facility] CLIA# [id number] [address] [place] [address] * (ABNORMAL) VITAMIN C LEVEL (11/16/2024 4:00 PM CDT) VITAMIN C <0.1(L) 0.3 - 2.7 mg/dL 11/23/2024 3:13 AM CDT [facility] Comment: This test was developed and its analytical performance characteristics have been determined by [employer] [place], [place]. It has not been cleared or approved by the FDA. This assay has been validated pursuant to the CLIA regulations and is used for clinical purposes. Blood Venipuncture / Unknown 11/16/2024 4:00 PM CDT 11/16/2024 4:04 PM CDT Narrative [facility] - 11/23/2024 3:13 AM CDT Performing Organization Information: Site ID: [id number] Name: [facility] Address: [address] [place] [address] [place] [address] Director: Chapin Guerrier M.D.,PhD us Aniya Galan DO CHEMISTRY ORDERABLES F inal Result [facility] [phone] * HEPATITIS C ANTIBODY W REFLEX (11/16/2024 4:00 PM CDT) HEPATITIS C AB NON-REACT GERALDINE Non-react geraldine 11/16/2024 5:01 PM CDT [facility] Comment:Antibodies to HCV we re not detected, does not exclude the possibility of exposure to HCV. Blood Venipuncture / Unknown 11/16/2024 4:00 PM CDT 11/16/2024 4:04 PM CDT Lulú Rodriguez MD CHEMISTRY ORDERABLES Final Resu lt [facility] CLIA# [id number] [address] [facility] [place] [address] * (ABNORMAL) LUPUS ANTICOAGULANT W/REFLEX CONFIRMATION (11/16/2024 4:00 PM CDT) BASELINE LA PTT 55.4(H) 24.8 - 37.2 sec 11/20/2024 8:42 AM CDT [facility] DRVVT SCREEN 60.0(H) 28.2 - 46.5 sec 11/20/2024 8:42 AM CDT [facility] DRVVT SCREEN RATIO 1.46(H) <=1.21 11/20/2024 8:42 AM CDT [facility] DRVVT NORMALIZED RATIO 1.02 <=1.12 11/20/2024 8:42 AM CDT [facility] HEXAGONAL PHASE CONFIRM (Staclot LA) 17.6(H) <=5.0 sec 11/20/2024 8:42 AM CDT [facility] LUPUS ANTICOAGULANT INTERP See Interpretation Below 11/20/2024 8:42 AM CDT [facility] INTERPRETED BY: Anthony Montalvo MD 8:42 AM CDT [facility] Blood Venipuncture / Unknown 11/16/2024 4:00 PM CDT 11/16/2024 4:03 PM CDT Narrative [facility] - 11/20/2024 8:42 AM CDT Interpretation: Positive Lupus Anticoagulant Screen (POTENTIAL FOR FALSE POSITIVE RESULT - SEE COMMENT) - Patient's LA-PTT was prolonged and partially corrected but remained prolonged after 1:1 mix with normal pooled plasma and became further prolonged after 1 hour incubation. - DRVVT screen was prolonged, but DRVVT normalized ratio was negative. - Staclot LA test demonstrates neutralization of an inhibitor with hexagonal phase phospholipids, indicating a positive lupus anticoagulant screen. COMMENT: Although this screen is positive, it is noted that the patient had a very high C-reactive protein level on the day of this testing. High C-reactive protein levels have been reported to interfere with lupus anticoagulant testing and may cause transient positive or false positive results (see reference below). Therefore, it is highly recommended to repeat testing after resolution of acute illness, when the patient is at baseline and not in an acute phase response. Additionally, follow- up testing 12 weeks after a non-acute phase positive test is also required to confirm or exclude persistent positivity. Repeat testing using the lupus anticoagulant screen, cardiolipin antibodies, and beta 2-glycoprotein antibodies is recommended. Clinical correlation is required. Reference: Mathew Wooten et al. Guidance from the Scientific and Standardization Committee for lupus anticoagulant/antiphospholipid antibodies of the International Society on Thrombosis and Haemostasis. Journal of Thrombosis and Haemostasis, Volume 18, Issue 11, 6097 - 4792 Lulú Rodriguez MD HEMATOLOGY ORDERABLES Final Res ult [facility] [id number] [address] [place] [address] * (ABNORMAL) PTT MIXING TEST (11/16/2024 4:00 PM CDT) Pathologist [facility] PTT 55.4(H) 24.8 - 37.2 seconds 11/21/2024 3:10 PM CDT [facility] PTT, PLASMA MIX 1:1 47.2(H) 24.8 - 37.2 seconds 11/21/2024 3:10 PM CDT [facility] PTT MIXING STUDY INTERP See Interpretation Below 11/21/2024 3:10 PM CDT [facility] INTERPRETED BY: Anthony Montalvo MD 11/21/2024 3:10 PM CDT [facility] Blood Venipuncture / Unknown 11/16/2024 4:00 PM CDT 11/16/2024 4:04 PM CDT Narrative [facility] - 11/21/2024 3:10 PM CDT PTT Mixing Study: Interpretation: Inhibitor pattern - The baseline PTT is prolonged at 55.4 seconds, and partially corrects when mixed 1:1 with normal pooled plasma, but remains prolonged at 47.2 seconds, suggestive of an inhibitor. - PTT further prolongs from 47.2 seconds to 55.6 seconds following a one-hour incubation, which is also suggestive of an inhibitor. - Factor VIII activity was performed to rule out a Factor VIII inhibitor or deficiency and was found to be elevated at 259%. - Overall, the PTT mixing study results suggests an inhibitor. The differential diagnosis includes Lupus Anticoagulant versus the patient's very high C-reactive protein (CRP) level interfering with the test by causing prolonged clotting times (see reference below). Refer to Lupus Anticoagulant interpretation (see separate report) for additional information. Correlation with clinical and other laboratory data is required. Interpreted by Sonido Montalvo MD Reference: Mathew Wooten et al. Guidance from the Scientific and Standardization Committee for lupus anticoagulant/antiphospholipid antibodies of the International Society on Thrombosis and Haemostasis. Journal of Thrombosis and Haemostasis, 2020 Dec;18(11):4284-3540. PMID: 35058066. Anticoagulant drugs that act as coagulation inhibitors may give falsely positive results in mixing study assays. Mixing study assays should not be routinely performed on patients receiving oral anticoagulant therapy, heparin, or direct thrombin inibitors, as these anticoagulants may affect the assay results. Interpretation of assay results should be viewed in conjunction with any current anticoagulation therapy. Lulú Rodriguez MD HEMATOLOGY ORDERABLES Final Res ult [facility] CLIA # [id number] [address] [place] [address] * (ABNORMAL) FACTOR VIII ASSAY (11/16/2024 4:00 PM CDT) Pathologist [facility] FACTOR VIII ACTIVITY, CLOTTING 259(H) 50 - 180 % normal 11/20/2024 10:21 PM CDT [facility] Comment: For additional information please refer to: http://education.Eldarion/faq/MUE024 (This link is being provided for informational/ educational purposes only.) Blood Venipuncture / Unknown 11/16/2024 4:00 PM CDT 11/16/2024 4:03 PM CDT Narrative [facility] - 11/20/2024 10:21 PM CDT Performing Organization Information: Site ID: [id number] Name: [facility] Address: [address] [place] [address] [place], [place] Director: Chapin Guerrier M.D.,PhD Lulú Rodriguez MD HEMATOLOGY ORDERABLES Final Res ult [facility] [phone] * (ABNORMAL) VITAMIN B1 LEVEL (11/16/2024 4:00 PM CDT) [facility] VITAMIN B1 65(L) 78 - 185 nmol/L 11/21/2024 8:38 PM CDT [facility] Comment: (Note) Vitamin supplementation within 24 hours prior to blood draw may affect the accuracy of the results. This test was developed and its analytical performance characteristics have been determined by [employer]. It has not been cleared or approved by FDA. This assay has been validated pursuant to the CLIA regulations and is used for clinical purposes. [facility] [address] [address],[address] [facility] [address] Piero Avery MD, PhD Blood Venipuncture / Unknown 11/16/2024 4:00 PM CDT 11/16/2024 4:04 PM CDT Narrative [facility] - 11/21/2024 8:38 PM CDT Performing Organization Information: Site ID: [id number] Name: [facility] Address: [address] [place] [address], [address] [place] [address] Director: Piero Avery MD,PhD us Aniya Galan DO CHEMISTRY ORDERABLES F inal Result Performing Organization Address [facility]/ZIP Co de Phone Number [facility] [phone] * (ABNORMAL) VITAMIN B6 LEVEL (11/16/2024 4:00 PM CDT) VITAMIN B6 <2.0(L) 2.1 - 21.7 ng/mL 11/21/2024 12:13 PM CDT [facility] Comment: (Note) Vitamin supplementation within 24 hours prior to blood draw may affect the accuracy of results. This test was developed and its analytical performance characteristics have been determined by [employer]. It has not been cleared or approved by the FDA. This assay has been validated pursuant to the CLIA regulations and is used for clinical purposes. [facility] [address] [place] [address],[address] [place] [address] Piero Avery MD, PhD Blood Venipuncture / Unknown 11/16/2024 4:00 PM CDT 11/16/2024 4:04 PM CDT Narrative [facility] - 11/21/2024 12:13 PM CDT Performing Organization Information: Site ID: [id number] Name: [facility] Address: [address] [place] [address], [address] [place] [address] Director: Piero Avery MD,PhD Aniya Galan DO CHEMISTRY ORDERABLES F inal Result [facility] [phone] * TRANSFUSE PLATELETS (11/16/2024 1:35 PM CDT) Christos Lindesy MD BLOOD TRANSFUSION ORDERABLES Fi nal Result * XR CHEST PA OR AP 1 VW (11/16/2024 9:28 AM CDT) Anatomical Region Laterality Modality Chest Computed Radiogr aphy 11/16/2024 9:28 AM CDT Impressions 11/16/2024 9:35 AM CDT FINDINGS/IMPRESSION: Heart is normal in size. No focal consolidation, pleural effusion, or pneumothorax. DICTATION LOCATION: Location 4 Narrative 11/16/2024 9:35 AM CDT EXAM: CHEST RADIOGRAPH, 1 VIEW AP DATE: 11/16/2024 9:28 AM HISTORY: Difficulty Breathing. Encounter for blood typing COMPARISON: 2024 Procedure Note Eusebio Falcon IV, MD - 11/16/2024 EXAM: CHEST RADIOGRAPH, 1 VIEW AP DATE: 11/16/2024 9:28 AM HISTORY: Difficulty Breathing. Encounter for blood typing COMPARISON: 2024 FINDINGS/IMPRESSION: Heart is normal in size. No focal consolidation, pleural effusion, or pneumothorax. DICTATION LOCATION: Location 4 Aniya Galan DO DIAGNOSTIC IMAGING ORD ERABLES Final Result * [id number] EVALUATION (11/16/2024 4:17 AM CDT) [id number] ACTIVITY 82 >=70 % 025 10:51 AM CDT [facility] Comment: ADDITIONAL INFORMATION This test was developed and its performance characteristics determined by [facility] in a manner consistent with CLIA requirements. This test has not been cleared or approved by the U.S. Food and Drug Administration. [id number] INTERP SEE COMMENTS 11/18/2024 10:51 AM CDT [facility] Comment: Normal NBWFIW88 activity makes autoimmune TTP less likely, therefore JJYGKS26 Inhibitor Titer was not performed. A normal XNZILU24 activity level does not completely exclude a clinical diagnosis of thrombotic thrombocytopenic purpura (TTP). Note: recent plasma infusion or plasma exchange may raise KKEUMA87 levels above patient's baseline. Recommend clinical correlation. Non-specific substrate proteolysis by other plasma proteases or recent plasma transfusion or plasma exchange may falsely raise IHLRAA55 activity. Markedly elevated endogenous von Willebrand factor (VWF), hyperlipidemia, hyperbilirubinemia (greater than 6mg/dL) may falsely lower BZJKGK58 activity. Test Performed by: [facility] [address] [employer] Department: Rae Rausch Ph.D.; CLIA# [id number] Blood Venipuncture / Unknown 11/16/2024 4:17 AM CDT 11/16/2024 4:26 AM CDT us Christos Lindsey MD HEMATOLOGY ORDERABLES Final Res ult [facility] * VERIFICATION BLOOD GROUP (11/16/2024 4:16 AM CDT) ABO GROUP O 11/16/2024 8:39 AM CDT [facility] RH (D) TYPE Positive 11/16/2024 8:39 AM CDT [facility] Blood Venipuncture / Unknown 11/16/2024 4:16 AM CDT 11/16/2024 8:09 AM CDT Lorena Vigil MD BLOOD BANK ORDERABLES Final Result Performing Organization Address City/[facility]/ZIP Co de Phone Number [facility] [employer] [facility] CLIA# [id number] [facility] [place] [address] * PERIPHERAL BLOOD SMEAR PATHOLOGY INTERP (11/16/2024 4:16 AM CDT) PERIPHERAL BLOOD SMEAR INTERP See Pathology Report to Follow 11/16/2024 5:22 AM CDT [facility] Blood Venipuncture / Unknown 11/16/2024 4:16 AM CDT 11/16/2024 4:26 AM CDT Christos Lindsey MD HEMATOLOGY ORDERABLES Final Res [id number] [place] [address] * PATHOLOGY (11/16/2024 4:16 AM CDT) CASE REPORT Surgical Pathology Report Case: [id number] Authorizing Provider: Christos Lindsey MD Collected: 11/16/2024 04:16 AM Ordering Location: [facility] Received: 11/16/2024 06:17 AM Neurosurgery Pathologist: Adalgisa Bhagat MD Specimen: Peripheral Blood Smear 12:03 PM T [facility] FINAL DIAGNOSIS Peripheral blood, morphologic review: - Mild normocytic anemia with no overt features of hemolysis - Leukocytosis with absolute neutrophilia and reactive changes - Marked thrombocytopenia - No circulating blasts or overt features of dyspoiesis 12:03 PM T [facility] at 1202 CDT DIAGNOSIS COMMENT Neutrophilia has many etiologies including acute stress (trauma/injury), exercise, phlebotomy, burn injury, infection, drugs/hormones (epinephrine, lithium, colony-stimulating factors, and beta-agonists), chronic inflammatory conditions (vasculitis, hepatitis, autoimmune disorders, et cetera), chronic smoking, metabolic, and malignancies. Clinical correlation is suggested. Thrombocytopenia can be see in a variety of entities including microangiopathic hemolytic anemia (TTP/HUS, DIC, ), hypersplenism, liver disease, megaloblastic anemia, immune thrombocytopenia, bone marrow infiltration, collagen vascular diseases, infection, medications, chemotherapy, toxic injury, heparin-induced thrombocytopenia, and in primary myeloid neoplasms. Correlation with laboratory, imaging, and clinical findings is suggested. 12:03 PM CDT [facility] MICROSCOPIC DESCRIPTION The slides are labeled [id number] and Stacia May. Review of the peripheral blood smear shows findings consistent with the CBC indices and differential. There is a mild normochromic normocytic anemia with no significant anisopoikilocytosis or polychromasia. Schistocytes are not readily identified. Leukocytes are increased with absolute neutrophilia. Neutrophils have normal nuclear segmentation, cytoplasmic hypergranularity, and vacuoles, favoring reactive. No circulating blasts or overt features of dyspoiesis is appreciated. Lymphocytes are comprised predominately of small, mature forms with occasional reactive forms. Platelets are markedly decreased with unremarkable morphology. 5 12:03 PM CDT [facility] CLINICAL INFORMATION Thrombocytopenia 12:03 PM CDT [facility] COMMENT Special stain, immunohistochemical, and/or in situ hybridization results are interpreted with controls that demonstrate appropriate staining reactions. Note on use of immunohistochemistry reagents and in situ hybridization probes: These tests were developed and their performance characteristics determined by [facility], Department of Laboratory Medicine. It has not been cleared or approved by the U.S. Food and Drug Administration. The FDA has determined that such clearance or approval is not necessary. The test is used for clinical purposes. It should not be regarded as investigational or for research. This laboratory is certified to perform high complexity testing. Frozen section/operating room consultation, gross examination and dissection, and case sign out may have been performed in part or completely in the following laboratories: [facility], CLIA #[id number] [address] [place] [address] [facility], CLIA #[id number] [address] [place] [address] [facility], CLIA #[id number] [address] [place] [address] 12:03 PM CDT [facility] Tissue (Peripheral Blood Smear) 11/16/2024 4:16 AM CDT 11/16/2024 6:17 AM CDT us Christos Lindsey MD PATHOLOGY/CYTOLOGY ORDERABLES F inal Result [facility] CLIA# [id number] [address] [place] [address] * (ABNORMAL) VITAMIN B12 AND FOLATE (11/16/2024 4:16 AM CDT) VITAMIN B12 >2,000(H) 232 - 1,245 pg/mL 11/16/2024 5:22 AM CDT [facility] Comment:It has been reported that between 5 to 10% of patients with values between 200 and 400 pg/mL may experience neuropsychiatric and hematologic abnormalities due to occult B12 deficiency. Less than 1% of patients with values above 400 pg/mL will have symptoms. FOLATE, SERUM 3.8(L) >4.5 ng/mL 11/16/2024 5:22 AM CDT [facility] Blood Venipuncture / Unknown 11/16/2024 4:16 AM CDT 11/16/2024 4:26 AM CDT Christos Lindsey MD CHEMISTRY ORDERABLES Final Resu lt Performing Organization Address [facility] de Phone Number [facility] CLNY# [id number] [address] [place] [address] * VITAMIN D 25 HYDROXY (11/16/2024 4:16 AM CDT) [facility] VITAMIN D TOTAL (25OH) 97 30 - 100 ng/mL 11/16/2024 10:24 AM T [facility] Blood Venipuncture / Unknown 11/16/2024 4:16 AM CDT 11/16/2024 4:26 AM CDT Narrative [facility] - 11/16/2024 10:24 AM CDT Interpretive Data Chart: Deficient: 0 - 20 ng/mL Insufficient: 21 - 29 ng/mL Sufficient: 30 - 100 ng/mL Increased Risk of Hypercalciuria: >100 ng/ml Toxic: >150 ng/ml Aniya Galan DO CHEMISTRY ORDERABLES F inal Result Performing Organization Address [facility] Co de Phone Number [facility] CLIA# [id number] [address] [place] [address] * (ABNORMAL) SEDIMENTATION RATE (11/16/2024 4:16 AM CDT) Pathologist [facility] ESR (SEDIMENTATION RATE) 92(H) <=20 mm/Hr 11/16/2024 4:57 AM CDT [facility] Blood Venipuncture / Unknown 11/16/2024 4:16 AM CDT 11/16/2024 4:26 AM CDT Christos Lindsey MD HEMATOLOGY ORDERABLES Final Res ult [facility] CLIA# [id number] [address] [place] [address] * (ABNORMAL) RETICULOCYTES (11/16/2024 4:16 AM CDT) [facility] RETICULOCYTES 0.6(L) 0.7 - 2.9 % 11/16/2024 4:38 AM CDT [facility] IMMATURE RETIC FRACTION 8.3 3.0 - 18.0 % 11/16/2024 4:38 AM CDT [facility] RETICULOCYTE, ABSOLUTE 0.0200 10e6/uL 11/16/2024 4:38 AM CDT [facility] Blood Venipuncture / Unknown 11/16/2024 4:16 AM CDT 11/16/2024 4:26 AM CDT Christos Lindsey MD HEMATOLOGY ORDERABLES Final Res ult [facility] CLIA# [id number] [address] [place] [address] * MAIA SCREEN W/REFLEX (11/16/2024 4:16 AM CDT) Pathologist [facility] MAIA SCREEN NEGATIVE NEGATIVE 11/19/2024 3:51 PM CDT [facility] Comment: MAIA IFA is a first line screen for detecting the presence of up to approximately 150 autoantibodies in various autoimmune diseases. A negative MAIA IFA result suggests an MAIA-associated autoimmune disease is not present at this time, and does not reflex further. If there is high clinical suspicion for Sjogren's syndrome, testing for anti-SS-A/Ro antibody should be considered. Anti-Kristie-1 antibody should be considered for clinically suspected inflammatory myopathies. AC-0: Negative International Consensus on MAIA Patterns (https://doi.org/10.1515/uaeb-8751-8355) For additional information, please refer to http://education.Atrica/faq/UZG627 (This link is being provided for informational/ educational purposes only.) Blood Venipuncture / Unknown 11/16/2024 4:16 AM CDT 11/16/2024 4:26 AM CDT Narrative [facility] - 11/19/2024 3:51 PM CDT Performing Organization Information: Site ID: [id number] Name: [facility] Address: [address] [place] [address] Director: Jazmyne Ferrell MD Christos Lindsey MD CHEMISTRY ORDERABLES Final Resu lt Performing Organization Address City/[facility]/ZIP Co de Phone Number [facility] [phone] * T3 FREE (11/16/2024 4:16 AM CDT) T3 FREE 2.0 2.0 - 4.4 pg/mL 11/16/2024 5:11 AM CDT [facility] [employer] [facility] Blood Venipuncture / Unknown 11/16/2024 4:16 AM CDT 11/16/2024 4:26 AM CDT Christos Lindsey MD CHEMISTRY ORDERABLES Final Resu lt Performing Organization Address [facility]/ZIP Co de Phone Number [facility] [employer] [facility] CLIA# [id number] [address] [place] [address] * (ABNORMAL) TSH (11/16/2024 4:16 AM CDT) TSH <0.01(L) 0.27 - 4.20 uIU/mL 11/16/2024 5:11 AM CDT [facility] Blood Venipuncture / Unknown 11/16/2024 4:16 AM CDT 11/16/2024 4:26 AM CDT Christos Lindsey MD CHEMISTRY ORDERABLES Final Resu lt [facility] [employer] [facility] CLIA# [id number] [address] [place] [address] * HEMOGLOBIN A1C (11/16/2024 4:16 AM CDT) Pathologist [facility] HEMOGLOBIN A1C 5.2 <5.7 % 11/16/2024 4:49 AM CDT [facility] [employer] [facility] EST. AVG GLUCOSE, A1C 103 mg/dL 11/16/2024 4:49 AM CDT [facility] [employer] [facility] Blood Venipuncture / Unknown 11/16/2024 4:16 AM CDT 11/16/2024 4:26 AM CDT Narrative [facility] - 11/16/2024 4:49 AM CDT HGB A1C INTERPRETATION NORMAL: <5.7% PRE-DIABETES: 5.7 - 6.4% DIABETES: 6.5% OR GREATER Christos Lindsey MD CHEMISTRY ORDERABLES Final Resu lt [facility] [employer] [facility] CLIA# [id number] [address] [place] [address] * (ABNORMAL) HAPTOGLOBIN (11/16/2024 4:16 AM CDT) HAPTOGLOBIN 239(H) 30 - 200 mg/dL 11/16/2024 7:39 AM CDT [facility] Blood Venipuncture / Unknown 11/16/2024 4:16 AM CDT 11/16/2024 7:22 AM CDT Lulú Rodriguez MD CHEMISTRY ORDERABLES Final Resu lt [facility] - [facility] CLIA# [id number] [address] [facility] [address] [address] * (ABNORMAL) COMPREHENSIVE METABOLIC PANEL (11/16/2024 4:16 AM CDT) Pathologist [facility] SODIUM 143 136 - 145 mmol/L 11/16/2024 5:11 AM [facility] [place] POTASSIUM 3.0(L) 3.5 - 5.0 mmol/L 11/16/2024 5:11 AM [facility] CHLORIDE 101 98 - 107 mmol/L 11/16/2024 5:11 AM T [facility] CO2 30(H) 22 - 29 mmol/L 11/16/2024 5:11 AM T [facility] CALCIUM 9.9 8.6 - 10.2 mg/dL 11/16/2024 5:11 AM T [facility] BUN 18 6 - 20 mg/dL 11/16/2024 5:11 [address] [facility] CREATININE 1.11(H) 0.51 - 0.95 mg/dL 11/16/2024 5:11 AM T [facility] GLUCOSE 91 74 - 99 mg/dL 11/16/2024 5:11 AM T [facility] TOTAL PROTEIN 5.9(L) 6.7 - 8.6 g/dL 11/16/2024 5:11 AM T [facility] ALBUMIN 2.7(L) 3.5 - 5.2 g/dL 11/16/2024 5:11 AM [facility] [employer] [facility] BILIRUBIN TOTAL 0.7 0.0 - 1.2 mg/dL 11/16/2024 5:11 AM CDT [facility] - [facility] ALKALINE PHOSPHATASE 153(H) 35 - 104 U/L 11/16/2024 5:11 AM CDT [facility] [place] AST 19 <33 U/L 11/16/2024 5:11 AM CDT [facility] - [facility] [place] ALT 10 <34 U/L 11/16/2024 5:11 AM T [facility] - . [facility] GFR >60 >=60 mL/min/1.7 3 sq meter 11/16/2024 5:11 AM T [facility] - [facility] Comment:eGFR calculated with 2020 CKD-EPI equation. Vegetarian diet, extremely high or low muscle mass, and may affect results. Cystatin C with Glomerular Filtration Rate is a suitable alternative for these patients. ANION GAP 12 8 - 16 mmol/L 11/16/2024 5:11 AM T [facility] Blood Venipuncture / Unknown 11/16/2024 4:16 AM CDT 11/16/2024 4:26 AM CDT Narrative [facility] - [facility] - 11/16/2024 5:11 AM CDT Samples containing indocyanine green cause interferences on Total and/or Direct Bilirubin and must not be measured. Christos Lindsey MD CHEMISTRY ORDERABLES Final Resu lt [facility] [employer] SERVICES [facility]# [id number] [address] [facility] [address] [address] * PREPARE PLATELETS (11/16/2024 12:35 AM CDT) COMPONENT TYPE [id number] [facility] COMPONENT IDENTIFICATION [id number] [facility] ABO A [facility] RH POS [facility] [place] COMPONENT STATUS Transfused ME [facility] COMPONENT EXPIRATION DATE/TIME [id number] [facility] COMPONENT CODING SYSTEM 6200 [facility] [place] VOLUME, BLOOD PRODUCT 582 [facility] Other, specify 11/16/2024 12 :35 AM CDT Christos Lindsey MD LAB TRANSFUSION ORDERABLES Edit ed Result - Final [facility] CLIA# [id number] [address] [place] [address] from Last 3 Months Additional Health Concerns Infection Onset 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
--- OUTSIDE RECORDS SUMMARY | 2024-12-07 08:54 | XMS_ITS | Clinical Summary ---
Author Organization [facility] Address [address] [place] [address] Care Team Providers Care Mail Handler Name Role Phone Rich Castillo MD Primary Care Provider [phone] Allergies Active Allergy Reactions Criticality Noted Date Comments Azithromycin Rash Medium 02/05/2021 Levofloxacin Rash Reaction: RASH, Penicillin Edema Medium Reaction: SWELLING, Penicillins Swelling,Rash High 05/09/2014 Medications cholecalciferol (VITAMIN D-3) 25 mcg (1,000 unit) tablet Take 1 tablet (1,000 Units total) by mouth daily Active cyanocobalamin (Vitamin B-12) 1,000 mcg tablet Take 1 tablet (1,000 mcg total) by mouth daily Active walker miscIndications :Neuropathy,Imp aired mobility,Parest hesia of both legs Use as directed to help walk 1 each 2 Active omega-3 fatty acids-fish oil 300-1,000 mg capsule Take 2 capsules (2 g total) by mouth daily Active atorvastatin (LIPITOR) 10 mg tablet Take 1 tablet by mouth every day 30 tablet 11 4 Active nystatin creamIndication s:Tinea cruris Apply topically 2 (two) times a day 60 g 2 5 Active gabapentin (NEURONTIN) 600 mg tablet Take 1 tablet by mouth 3 times a day 300 tablet 1 5 Active ergocalciferol (Vitamin D2) 50,000 unit capsule Take 1 capsule by mouth once a week 4 capsule 5 5 Active levothyroxine (SYNTHROID) 88 mcg tablet Take 1 tablet by mouth 30 minutes before breakfast 30 tablet 3 5 Active hydrocortisone (CORTEF) 5 mg tablet TAKE 2 TABLETS BY MOUTH EVERY MORNING AND 1 TABLET BY MOUTH EVERY NIGHT AT BEDTIME 90 tablet 3 5 Active tobramycin (TOBREX) 0.3 % ophthalmic solution Administer 2 drops into both eyes every 4 (four) hours 5 mL 5 Active Active Problems Problem Noted Date Diagnosed Date Hypercalcemia 07/27/2024 Assessment & Plan (07/27/2024 1:31 PM CDT): 33 y.o. female with a history of hypercalcemia (> 6 months) without nephrolithiasis without known osteoporosis and persistently elevated PTH in the absence of any causes of secondary hyperparathyroidism (kidney failure, vitamin D deficiency, medications, malabsorption). Patient has an aunt positive for MEN1 mutation who suffered hyperparathyroidism and pancreatic neuroendocrine tumor. Lab Results Component Value Date PTH 108.0 (H) 07/26/2024 CALCIUM 10.3 07/26/2024 CAION 5.46 (H) 07/26/2024 PHOS 4.6 (H) 08/24/2023 Corrected calcium = 10.5(H) Lab Results Component Value Date 25HYDROVITD 68.0 02/01/2024 VITAMIND 94.6 07/26/2024 Plan: 1) Check serum and ionized Ca 2) Check intact PTH 3) Check serum Mg (hypomagnesemia may underestimate PTH elevation) 4) Check 24-hour urine calcium and creatinine 5) Check Vitamin D 25-(OH) & 1,25-(OH) (if PTH low or suppressed) 6) Check CBC, TSH, SPEP, UPEP, DEXA scan 7) Imaging considerations, more for preoperative workup of pHPT 4D-CT scan - recommended; superior SN for single- & multi-gland disease US Neck (parathyroid glands) 99mTc-Sestamibi scan - ?identify single parathyroid adenoma 8) If symptomatic or severe hypercalcemia (>14 mg/dl or ionized > 10 mg/dl), can consider medication Cinacalcet (Sensipar) 30 mg PO BID - only to be used in PTH-mediated hypercalcemia (titrate dose to Ca level in 1-4 weeks after starting) Counseled regarding lifestyle modifications: -Maintain adequate hydration (about 2-3 L/day) -Avoid lithium (increases PTH secretion), thiazide diuretics (reduce urine calcium excretion), prolonged immobility, high calcium diet (>1 g/day) -Maintain a moderate calcium intake (1000 mg/day) and vitamin D intake (400 to 800 international units daily) Cigarette nicotine dependence without complicati on 04/14/2022 Assessment & Plan (04/14/2022 2:49 PM WOOL HAT SANDING MACHINE OPERATOR): 31 y.o. female with nicotine dependence, cigarettes; encouraged smoking cessation but patient not receptive at this time Smoking cessation resources: 1) State tobacco quitline (1-764-SVDF-NOW) 2) Web support: CDC.gov/quit; Smokefree.gov; [place] 3) Text support: what3words.[employer]/SmokefreeTXT 4) [place] support: [address] [facility].gov/tools-tips/apps/quitstart Smoking cessation medications: 1) Nicotine replacement therapy (NRT) - patch, gum, lozenge, inhaler, and nasal spray 2) Bupropion (Wellbutrin and Zyban) 3) Varenicline (Chantix and Champix) Junctional rhythm 02/08/2022 Assessment & Plan (02/09/2022 4:19 PM WOOL HAT SANDING MACHINE OPERATOR): Once stable from endocrine standpoint and electrolytes are replenished. 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 02/05/2022 Assessment & Plan (02/09/2022 4:21 PM WOOL HAT SANDING MACHINE OPERATOR): No period and low FSH, LH, and estradiol - will likely need replacement therapy; can be pursued as outpatient Thrombocytopenia 02/03/2022 Assessment & Plan (02/09/2022 4:16 PM WOOL HAT SANDING MACHINE OPERATOR): Possibly related to nutritional deficiency, now improving - folate low and pt is on replacement - copper wnl Assessment & Plan (02/04/2022 12:10 AM WOOL HAT SANDING MACHINE OPERATOR): -possibly related to nutritional deficiency -monitor CBC Eczema 09/02/2021 Assessment & Plan (09/02/2021 9:01 PM CDT): Advised using cetaphil or eucerin soap followed by lotion qd Early loss of permanent teeth 02/05/2021 Anemia 02/05/2021 Assessment & Plan (02/09/2022 4:22 PM WOOL HAT SANDING MACHINE OPERATOR): Pt has not had menstrual period in 7 years. - Iron panel, b12 are unremarkable; folate - low and being replaced; copper, zinc wnl Ataxia 02/05/2021 Hypesthesia 02/05/2021 Impaired mobility 02/05/2021 Memory impairment 02/05/2021 Tobacco use disorder 02/05/2021 Assessment & Plan (08/24/2023 1:49 PM CDT): 32 y.o. female with nicotine dependence, cigarettes; encouraged smoking cessation but patient not receptive at this time Smoking cessation resources: 1) State tobacco quitline (4-465-XFQB-NOW) 2) Web support: CDC.gov/quit; Smokefree.gov; becomeanex.org 3) Text support: Smokefree.gov/SmokefreeTXT 4) [place] support: Smokefree.gov/tools-tips/apps/quitstart Smoking cessation medications: 1) Nicotine replacement therapy (NRT) - patch, gum, lozenge, inhaler, and nasal spray 2) Bupropion (Wellbutrin and Zyban) 3) Varenicline (Chantix and Champix) Assessment & Plan (02/05/2021 1:40 PM WOOL HAT SANDING MACHINE OPERATOR): Advised smoking cessation, patient working towards cutting back Amenorrhea 02/05/2021 Assessment & Plan (02/05/2021 1:40 PM WOOL HAT SANDING MACHINE OPERATOR): Discussed potential jail complications of amenorrhea in premenopause. Advised close follow up with research chief engineer, will help her arrange appt. 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 Follows with NSGY and had follow up bMRI 10/2021 which was unchanged from prior. Repeat bMRI: New right temporal lobe white matter T1 and T2 hyperintense focus with small rim of hemosiderin could be a subacute hematoma. Postsurgical changes of transsphenoidal pituitary cyst resection are noted and findings compatible with residual cyst. Partially empty sella turcica. Interval increase in size of the T1 hyperintense lesion within the clivus now approximately 1.2 x 0.9 cm and increased in size compared to 04/04/2018. CT sinus for further characterization supports findings on MRI. - NSG consulted: recommend non-op management and OP follow up. Assessment & Plan (02/04/2022 12:08 AM WOOL HAT SANDING MACHINE OPERATOR): -s/p transphenoidal resection x 2 (2016) and radiotherapy. Follows with NSGY and had follow up bMRI 10/2021 which was unchanged from prior. Assessment & Plan (09/02/2021 9:00 PM CDT): Will order mri of brain for routine monitoring She has appt pending for f/u with neurology that she will keep Assessment & Plan (04/22/2021 7:09 PM WOOL HAT SANDING MACHINE OPERATOR): They will cancel appt with Dr. Garcia due to insurance issues. Will attempt a different office due to this concern. Assessment & Plan (02/05/2021 1:38 PM WOOL HAT SANDING MACHINE OPERATOR): Will retrieve records - advised f/u with neurology. They prefer to stay in [place] due to transportation issues. 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 Consider screening and/or genetic testing for MEN- 1, given a number of her family members have been diagnosed with MEN-1 recently (patient's of Dr. Nation) - screen for primary hyperparathyroidism, entero-pancreatic tumors (gastrinoma, insulinoma, VIP-secreting), and/or pituitary tumors Mother manages medications for entire family - health literacy is a suspected issue for this patient HPA axes affected and hormonal replacement regimen: -Secondary adrenal insufficiency (AI) Hemodynamically stable on physiological maintenance-dose corticosteroids Continue Hydrocortisone 10 mg qAM and 5 mg qPM (or Prednisone 5 mg qAM) Monitor for side-effects (weight gain, osteoporosis, immunocompromised) Counseled re: adrenal crisis & sick day rule (double dose in acute illness) Instructed to obtain Medic-Alert bracelet for adrenal insufficiency Counseled re: carrie-operative dosing for procedures requiring general anesthesia Hydrocortisone 25 to 50 mg IV q8h during the procedure -Secondary hypothyroidism Free T4 = 2.19(H) ng/dl (ref range: 0.9-1.7 ng/dl) - maintain in upper third of ref. range REDUCE Levothyroxine 88 -> 75 mcg daily (30-60 min before first meal, no other meds) Repeat free T4 level in 6-8 weeks after dose adjustment TSH level not useful to guide therapy in secondary hypothyroidism Not taking biotin or supplemental vitamins -Secondary hypogonadism LH <0.3(L), FSH <0.3(L), Estradiol level <15.8(L) Consider hormone replacement therapy (premenopausal woman with uterus) Estradiol (prevents osteoporosis), progesterone (prevents endometrial hyperplasia) Activella (1 mg of estradiol and 0.5 mg of norethindrone) x 28 days - has since stopped taking OCP; she wants to wait until next visit to discuss HRT No contraindications to HRT No history of breast, uterine, endometrial cancer or abnormal uterine bleeding No history of VTE or PE No history of hypertriglyceridemia -Diabetes insipidus (DI) Continue Desmopressin (DDAVP) 0.5 mg BID - patient refuses to take; reports adverse reaction with mental confusion; counseled her regarding risks and benefits of non-adherence, which she acknowledges Intact thirst mechanism Total UOP < 3 L/day, denies polyuria, polydipsia, nocturia No signs of volume depletion Check UA and BMP to monitor for Low urine specific gravity < 1.004 - no recent Hypernatremia (Na > 149 mmol/L) - current serum Na 148(H) Assessment & Plan (08/24/2023 2:14 PM CDT): 32 y.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 Consider screening and/or genetic testing for MEN- 1, given a number of her family members have been diagnosed with MEN-1 recently (patient's of Dr. Nation) - screen for primary hyperparathyroidism, entero-pancreatic tumors (gastrinoma, insulinoma, VIP-secreting), and/or pituitary tumors Mother manages medications for entire family - health literacy is a suspected issue for this patient HPA axes affected and hormonal replacement regimen: -Secondary adrenal insufficiency (AI) Hemodynamically stable on physiological maintenance-dose corticosteroids Continue Hydrocortisone 10 mg qAM and 5 mg qPM (or Prednisone 5 mg qAM) Monitor for side-effects (weight gain, osteoporosis, immunocompromised) Counseled re: adrenal crisis & sick day rule (double dose in acute illness) Instructed to obtain Medic-Alert bracelet for adrenal insufficiency Counseled re: carrie-operative dosing for procedures requiring general anesthesia Hydrocortisone 25 to 50 mg IV q8h during the procedure -Secondary hypothyroidism Free T4 1.26 ng/dl (ref range: 0.9-1.7 ng/dl) - maintain in upper third of ref. range Continue Levothyroxine 88 mcg daily (30-60 min before first meal, no other meds) Repeat free T4 level in 6-8 weeks after dose adjustment TSH level not useful to guide therapy in secondary hypothyroidism Not taking biotin or supplemental vitamins -Secondary hypogonadism LH <0.3(L), FSH <0.3(L), Estradiol level <5 Consider hormone replacement therapy (premenopausal woman with uterus) Estradiol (prevents osteoporosis), progesterone (prevents endometrial hyperplasia) Activella, Amabelz, or Lopreeza (1 mg of estradiol and 0.5 mg of norethindrone) x 28 days - has run out & needs refill No contraindications to HRT No history of breast, uterine, endometrial cancer or abnormal uterine bleeding No history of VTE or PE No history of hypertriglyceridemia -Diabetes insipidus (DI) Continue Desmopressin (DDAVP) 0.5 mg BID - patient refuses to take; reports adverse reaction with mental confusion; counseled her regarding risks and benefits of non-adherence, which she acknowledges Intact thirst mechanism Total UOP < 3 L/day, denies polyuria, polydipsia, nocturia No signs of volume depletion Check UA and BMP to monitor for Low urine specific gravity < 1.004 Hypernatremia (Na > 149 mmol/L) Assessment & Plan (04/14/2022 3:41 PM WOOL HAT SANDING MACHINE OPERATOR): 31 y.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) HPA axes affected and hormonal replacement regimen: -Secondary adrenal insufficiency (AI) Hemodynamically stable on physiological maintenance-dose corticosteroids Continue Hydrocortisone 10 mg qAM and 5 mg qPM (or Prednisone 5 mg qAM) Monitor for side-effects (weight gain, osteoporosis, immunocompromised) Counseled re: adrenal crisis & sick day rule (double dose in acute illness) Instructed to obtain Medic-Alert bracelet for adrenal insufficiency Counseled re: carrie-operative dosing for procedures requiring general anesthesia Hydrocortisone 25 to 50 mg IV q8h during the procedure -Secondary hypothyroidism Free T4 1.26 ng/dl (ref range: 0.9-1.7 ng/dl) - maintain in upper third of ref. range Continue Levothyroxine 88 mcg daily (30-60 min before first meal, no other meds) Repeat free T4 level in 6-8 weeks after dose adjustment TSH level not useful to guide therapy in secondary hypothyroidism Not taking biotin or supplemental vitamins -Secondary hypogonadism LH <0.3(L), FSH <0.3(L), Estradiol level <5 Consider hormone replacement therapy (premenopausal woman with uterus) Estradiol (prevents osteoporosis), progesterone (prevents endometrial hyperplasia) Activella, Amabelz, or Lopreeza (1 mg of estradiol and 0.5 mg of norethindrone) x 28 days No contraindications to HRT No history of breast, uterine, endometrial cancer or abnormal uterine bleeding No history of VTE or PE No history of hypertriglyceridemia -Diabetes insipidus (DI) Continue Desmopressin (DDAVP) 0.5 mg BID - patient refuses to take; reports adverse reaction with mental confusion; counseled her regarding risks and benefits of non-adherence, which she acknowledges Intact thirst mechanism Total UOP < 3 L/day, denies polyuria, polydipsia, nocturia No signs of volume depletion Check UA and BMP to monitor for Low urine specific gravity < 1.004 Hypernatremia (Na > 149 mmol/L) Assessment & Plan (02/05/2021 1:38 PM WOOL HAT SANDING MACHINE OPERATOR): Advised close follow up with endocrinology, will help her arrange appt Mixed anxiety and depressive disorder 11/03/2017 Neuropathy 11/03/2017 Assessment & Plan (09/02/2021 9:00 PM CDT): Continue with gabapentin, refill as needed She was reminded not to stop this medication abruptly Hyperlipidemia 12/31/2016 Assessment & Plan (02/05/2022 6:40 PM WOOL HAT SANDING MACHINE OPERATOR): Lipid panel shows low HDL but otherwise unremarkable. Thyroid replacement will likely help. Discontinue Atorvastatin. Assessment & Plan (02/05/2021 1:39 PM WOOL HAT SANDING MACHINE OPERATOR): History of, will evaluate on labs Diabetes insipidus 11/19/2016 Assessment & Plan (02/09/2022 4:21 PM WOOL HAT SANDING MACHINE OPERATOR): Sp grav 1.001 and UOP > 5L - DDAVP 500mcg BID Secondary hypothyroidism 11/19/2016 Assessment & Plan (02/09/2022 4:18 PM WOOL HAT SANDING MACHINE OPERATOR): Pt is s/p resection and radiation for Rathke's cleft cyst, now presenting with symptomatic hypothyroidism - IV levothyroxine transitioned to PO synthroid 75. Assessment & Plan (09/02/2021 8:59 PM CDT): Advised appt with endo as planned Secondary hypocortisolism (CMS/HCC) 11/19/2016 Assessment & Plan (02/09/2022 4:18 PM WOOL HAT SANDING MACHINE OPERATOR): Insufficient response to cosyntropin stim test probably from secondary AI, now on hydrocortisone. Nerve root disorder 11/19/2016 Paresthesia of both legs 07/23/2016 Status post brain surgery 07/23/2016 Chronic pain 07/22/2016 Vitamin D deficiency 05/09/2014 Overview (03/10/2018): Overview: Vitamin D, 25-hydroxy 6.1 on 04/02/14; normal range 30-100 Assessment & Plan (08/24/2023 1:48 PM CDT): 32 y.o. female with history of vitamin D deficiency-insufficiency Latest Vitamin 25(OH)-D level = 19 (<20 ng/ml, Deficiency) Denies active symptoms: no fatigue, no bone pain, no muscle [id number], no mood changes (depression). Risk factors: no dark-colored skin, no obesity, no bariatric surgery, no cystic fibrosis, no Crohn's disease, no celiac disease, no hepatic-renal disease Plan: 1) Repeat Vitamin 25(OH)-D level 2) Finish Vit D2 50,000 IU/weekly x 8 weeks; transition to maintenance Vit D3 5,000 IU/day Assessment & Plan (04/14/2022 2:48 PM WOOL HAT SANDING MACHINE OPERATOR): 31 y.o. female with history of vitamin D deficiency-insufficiency Latest Vitamin 25(OH)-D level = 19 (<20 ng/ml, Deficiency) Denies active symptoms: no fatigue, no bone pain, no muscle [id number], no mood changes (depression). Risk factors: no dark-colored skin, no obesity, no bariatric surgery, no cystic fibrosis, no Crohn's disease, no celiac disease, no hepatic-renal disease Plan: 1) Repeat Vitamin 25(OH)-D level 2) Finish Vit D2 50,000 IU/weekly x 8 weeks; transition to maintenance Vit D3 5,000 IU/day Assessment & Plan (02/09/2022 4:15 PM WOOL HAT SANDING MACHINE OPERATOR): Replete with VitD Assessment & Plan (02/05/2021 1:37 PM WOOL HAT SANDING MACHINE OPERATOR): History of, will evaluate on labs Ovarian cyst, left 05/09/2014 Overview (02/05/2021): Large complex cyst measuring 17 x 10 x 9 mm on 04/08/14 US Overview: Large complex cyst measuring 17 x 10 x 9 mm on 04/08/14 US Resolved Problems Problem Noted Date Diagnosed Date Resolved Date Dehydration 02/24/2022 05/27/2022 Hypothermia 02/06/2022 02/09/2022 Assessment & Plan (02/09/2022 4:20 PM WOOL HAT SANDING MACHINE OPERATOR): Likely due to AI. Now improved. Hypoadrenalism 02/05/2022 02/09/2022 Conjunctivitis 02/05/2022 01/17/2023 Assessment & Plan (02/08/2022 8:23 PM WOOL HAT SANDING MACHINE OPERATOR): Improved. Polytrim started 02/04; may be discontinued after 7 days of tx. Decreased oral intake 02/04/20222021 Assessment & Plan (02/09/2022 4:21 PM WOOL HAT SANDING MACHINE OPERATOR): -Reports poor PO intake for several days and likely weight loss, although per family report to ED providers, symptoms may have been ongoing for a much longer time period -Given hx of Rathke's cleft cyst with associated hx of hypopituitarism, will add on fT4 and check AM ACTH and cortisol levels. She was previously on Synthroid and hydrocortisone although these medications were discontinued over 1 year ago per patient. -Check HIV Ab -Nutrition c/s -Replete lytes PRN, may be at risk of refeeding syndrome Assessment & Plan (02/04/2022 12:15 AM WOOL HAT SANDING MACHINE OPERATOR): -Reports poor PO intake for several days and likely weight loss, although per family report to ED providers, symptoms may have been ongoing for a much longer time period -Given hx of Rathke's cleft cyst with associated hx of hypopituitarism, will add on fT4 and check AM ACTH and cortisol levels. She was previously on Synthroid and hydrocortisone although these medications were discontinued over 1 year ago per patient. -Check HIV Ab -Nutrition c/s -Replete lytes PRN, may be at risk of refeeding syndrome Syncope, unspecified syncope type 02/03/2022 05/27/2022 Syncope 02/03/2022 05/27/2022 Assessment & Plan (02/09/2022 4:17 PM WOOL HAT SANDING MACHINE OPERATOR): Likely 2/2 hypotension related to volume depletion and adrenal insufficiency. EKG shows junctional rhythm with HR @ 60 and / or arrhythmia induced by hypokalemia are other potential but less likely causes. Treated with stress dose steroids now transitioned to oral basal regimen. S/p IVF with improvement in BP and symptoms - Tele thus far has not given a reason for syncope; will discontinue. - Continue hydrocortisone 11/25. Assessment & Plan (02/04/2022 12:06 AM WOOL HAT SANDING MACHINE OPERATOR): -likely 2/2 hypotension related to volume repletion. She also has significant hypokalemia which could cause arrhythmias but lower suspicion for this as cause -s/p IVF with improvement in BP -can consider TTE Hypotension 02/03/2022 02/09/2022 Assessment & Plan (02/09/2022 4:21 PM WOOL HAT SANDING MACHINE OPERATOR): Likely 2/2 volume depletion & AI, now resolved s/p IVF and steroids. Assessment & Plan (02/04/2022 12:07 AM WOOL HAT SANDING MACHINE OPERATOR): -likely 2/2 volume depletion and now resolved s/p IVF. Low suspicion sepsis. Metabolic alkalosis 02/03/2022 02/10/20 Assessment & Plan (02/08/2022 8:26 PM WOOL HAT SANDING MACHINE OPERATOR): -now resolved -suspect contraction alkalosis Assessment & Plan (02/04/2022 12:09 AM WOOL HAT SANDING MACHINE OPERATOR): -suspect contraction alkalosis, denies N/V, diuretic use Hypokalemia 02/03/2022 05/27/2022 Assessment & Plan (02/09/2022 4:21 PM WOOL HAT SANDING MACHINE OPERATOR): Improved. Replete as needed Assessment & Plan (02/04/2022 12:10 AM WOOL HAT SANDING MACHINE OPERATOR): -possibly 2/2 poor PO intake -s/p KCl 80 IV and 80 PO. Recheck K. -Mg normal -Tele until K improves BMI 26.0-26.9,adult 04/22/2021 01/18/20 23 Assessment & Plan (04/22/2021 7:10 PM WOOL HAT SANDING MACHINE OPERATOR): Obesity is unchanged. Discussed the patient's BMI. The BMI is above average. BMI management plan is completed. BMI Follow-up includes: nutrition counseling, exercise counseling and education provided. Dysphagia 02/05/2021 01/17/2023 Encounter to establish care 02/05/2021 09/02/2021 Stage 3 chronic kidney disease 02/05/2021 05/27/2022 Candidiasis 02/05/2021 01/17/2023 Assessment & Plan (02/05/2021 1:40 PM WOOL HAT SANDING MACHINE OPERATOR): Chronic problem, refill nystatin as needed. Advised strict glucose control to assist in resolving steve. Anxiety 04/27/2018 01/17/2023 Type 2 diabetes mellitus 11/19/2016 Assessment & Plan (02/05/2022 6:20 PM WOOL HAT SANDING MACHINE OPERATOR): -Last A1c 5.1 (04/2021). No longer on medications. Assessment & Plan (02/04/2022 12:05 AM WOOL HAT SANDING MACHINE OPERATOR): -Last A1c 5.1 (04/2021). No longer on medications. Assessment & Plan (04/22/2021 7:09 PM WOOL HAT SANDING MACHINE OPERATOR): hgb a1c 5.1% in office Encouraged completing fasting labs Discussed and advised not skipping meals, eating small snacks in between Discussed that at this time due to lower sugars and normal hgb a1c that medications will not be restarted, however this is always subject to change. Assessment & Plan (02/05/2021 1:38 PM WOOL HAT SANDING MACHINE OPERATOR): Discussed with patient and mom monitoring at home at least bid, goal 80-120 fasting. Advised fasting labs as soon as possible. We discussed resuming basaglar and/or glipizide pending results. We discussed importance of control of glucose for microvascular changes, particularly given the report in the chart from nephrology in 2019 indicating CKD stage 3. Disorder of brain 09/27/2016 01/17/2023 GERD (gastroesophageal reflux disease) 07/22/2016 07/19/2023 Gestational diabetes 05/09/2014 023 Overview (02/05/2021): GCT: 141 GTT: 77/210/192/161 HgbA1c: 5.6 on 04/02/14 Encounters Date Type Department Care Team Description 12/04/[address] [facility] Medical [facility] Family Medicine at [address] [phone] Rich Castillo MD MANUEL Questions 11/30/[address] [facility] Home Infusion Therapy [address] [place] [address] Roxanne Whitaker 11/27/[address] [facility] Home Care Services [address] [place] [address] [place] [phone] Unknown, Notinfile 11/21/[address] [facility] Home Care Services [address] [place] [address] [place] [phone] Giulia De La Rosa 11/07/2024 9:30 AM CDT Office Visit [facility] Medical [facility] Family Medicine at [address] [place] [phone] Rich Castillo MD Acute bacterial conjunctivitis of both eyes (Primary Dx) 11/06/[address] [facility] Medical Group Family Medicine at [address] [place] [address] Rich Castillo MD from Last 3 Months Immunizations Immunization Administration Dates Next Due DTP 12/10/1994, 2,09/24/1990,04/20,01/28/1990 Hep B, Adolescent or Pediatric 04/15/2003,2002,10/24/2002 Hep B, Unspecified 04/15/2003,11/23/2002, 003 HiB 05/08/1991,09/26/1990,04/20/1990 IPV 12/10/1994,08/06/1991 Influenza, Quadrivalent, Spl it, Intramuscular 12/06/2018,02/02/2018 Influenza, Quadrivalent, Spl it, Preservative Free, Intramuscular 01/17/2023,04/22/2021,10/03/2018,12/12 Influenza, Trivalent, Preser vative Free, Intramuscular 11/22/2015 Influenza, Unspecified 12/11/2023(Deferr ed: Patient Refused),11/22/2023,12/10/2021(Deferre d: Patient Refused),11/20/2016,04/21/2016 MMR 12/10/1994,05/08/1991 OPV 12/10/1994, 2,04/20/1990,01/28 OPV, Unspecified 04/20/1990,01/28/1990 Tdap 05/29/2014,04/18/2014 Surgical History Surgery Date Site/Laterality Comments BRAIN SURGERY Brain Surgery - (Added by Conv) BRAIN TUMOR EXCISION Medical History Medical History Date Comments Personal history of other en docrine, nutritional and metabolic disease History of diabetes mellitus - (Added by TW Conv) Personal history of other en docrine, nutritional and metabolic disease History of hypothyro idism - (Added by TW Conv) Diabetes mellitus Neuropathy Premenopausal patient Family History Medical History Relation Name Comments Colon cancer Maternal Grandmother Blood Clot Mother Relation Name Status Comments Maternal Grandmother Mother Social History Tobacco Use Types Packs/Day Years Used Date Smoking Tobacco: Every Day Cigarettes Smokeless Tobacco: Never Tobacco Cessation:Ready to Q uit: Not Asked; Counseling Given: Not Answered Comments:trying to quit Alcohol Use Standard Drinks/Week [...] often do you attend chur ch or scientologist services? Never 02/11/2022 Do you belong to any clubs o r organizations such as sabianism groups, unions, fraternal or athletic groups, or [...] place to sleep or slept in a skilled nursing (including now)? No 02/11/2022 Comments No Sex and Gender Information Value Date Recorded Sex Assigned at Not on file Legal Sex Female 1:53 AM CDT Gender Identity Not on file Sexual Orientation Not on file Obstetrics History Last Filed Vital Signs Vital Sign Reading Time Taken Comments Blood Pressure 110/70 08/29/2024 11:58 AM CDT Pulse 85 11/07/2024 9:49 AM CDT unable to obtain Temperature 36.4 C (97.6 F) 08/29/2024 11:58 AM CDT Respiratory Rate 18 08/29/2024 11:5 8 AM CDT Oxygen Saturation 95% 11/07/2024 9:4 9 AM CDT Inhaled Oxygen Concentration - - Weight 49.2 kg (108 lb 8 oz) 11/07/2024 9:49 AM CDT Height 149.9 cm (4' 11) 11/07/2024 9:4 9 AM CDT Body Mass Index 21.91 11/07/2024 9:49 AM CDT Plan of Treatment Health Maintenance Due Date Last Done Comments Cervical Cancer Screening 1989 Hepatitis C Screening 1989 Foot Exam 1989 Varicella Vaccines (1 of 2 - 13+ 2-dose series) 2002 Pneumococcal vaccine <65 (1 of 2 - PCV) 2008 HPV Vaccines (1 - 3-dose SCD M series) 2016 DTaP/Tdap/Td Vaccine (8 - Td or Tdap) 05/29/2024 05/29/2014, 04/18/2014, 12/10/1994, Additional history exists Influenza Vaccine (#1) 2024 , 01/17/2023, 04/22/2021, Additional history exists Dilated Eye Exam 11/03/2024 11/04/2023 Hemoglobin A1C 05/16/2025 11/16/2024, 060 06/2024, 02/01/2024, Additional history exists Lipid Panel 07/26/2025 07/26/2024, 070 04/2023, 02/24/2022, Additional history exists eGFR 07/26/2025 07/26/2024, 01/21, 08/24/2023, Additional history exists Regular Well Visit/Exam 18-64 08/29/2025 08/29/2024 Depression Screening 11/07/2025 11/07/2024, 06/14/2024, 07/19/2023, Additional history exists Hepatitis B Screening Completed 04/15/2003 , 04/15/2003, 11/23/2002, Additional history exists Albumin Creatinine Ratio, Urine Discontinued 7, 11/19/2016 Procedures Procedure Name Priority Date/Time Associated Diagnosis Comments COMPREHENSIVE METABOLIC PANEL Routine 07/26/2024 11:48 AM CDT Rathke's cleft cyst HEMOGLOBIN A1C Routine 07/26/2024 11:48 AM CDT Rathke's cleft cyst LIPID PANEL Routine 07/26/2024 11:48 AM CDT Rathke's cleft cyst DIABETIC EYE EXAM Routine 11/04/2023 3:2 7 PM CDT ALBUMIN / CREATININE URINE RATIO, RANDOM Routine Gen Lab 12/31/2016 1:05 PM WOOL HAT SANDING MACHINE OPERATOR from Last 3 Months or Most Recently Relevant to Health Maintenance Results * Lipid panel (07/26/2024 11:48 AM CDT) Triglycerides 147 <150 mg/dL [facility] Comment: Desirable: <150 mg/dL, fasting <175 mg/dL, non-fasting Total Cholesterol 139 <200 mg/dL [facility] Total HDL-C Direct 55 >50 mg/dL [facility] Non-HDL cholesterol 84 <220 mg/dL [facility] Calculated LDL Chol 60 <190 mg/dL [facility] Blood 07/26/2024 11:4 8 AM CDT 07/26/2024 12:27 PM CDT Narrative [facility] - 07/26/2024 1:34 PM CDT Beginning June 20, 2024, LDL are now calculated by the Ehrnández-NIH equation (BRENDON Cardiol 2020;5:540-8) which is more accuarate than the older Friedewald equation in patients with low LDL cholesterol or high triglycerides. us Geronimo Solano MD PhD LAB BLOOD ORDERABLES Fin al Result [facility] * (ABNORMAL) Comprehensive metabolic panel (07/26/2024 11:48 AM CDT) Total Protein 7.7 6.1 - 8.4 g/dL [facility] Albumin 3.7 3.5 - 5.2 g/dL [facility] Calcium 10.3 8.6 - 10.3 mg/dL [facility] BUN 7 7 - 23 mg/dL [facility] Total Bilirubin 0.26 0.20 - 1.40 mg/dL [facility] Alk Phos, Total 169(H) 35 - 129 IU/L [facility] AST (SGOT) 19 11 - 47 IU/L [facility] ALT (SGPT) 23 6 - 53 IU/L [facility] Creatinine 1.20(H) 0.60 - 1.10 mg/dL [facility] Sodium 148(H) 135 - 145 mmol/L [facility] Potassium 3.6 3.3 - 5.1 mmol/L [facility] Chloride 107 95 - 107 mmol/L [facility] CO2 Content 30(H) 21 - 29 mmol/L [facility] Glucose 74 64 - 99 mg/dL [facility] Comment: NONFASTING GLUCOSE RANGE = 64-199 mg/dL FASTING GLUCOSE 64 - 99 = NORMAL FASTING GLUCOSE 100 - 125 = IMPAIRED FASTING GLUCOSE FASTING GLUCOSE >=126 = PROVISIONAL DIAGNOSIS OF DIABETES eGFR 60.9 >60.0 mL/min/1.7 3 m2 [facility] Blood 07/26/2024 11:4 8 AM CDT 07/26/2024 12:27 PM CDT Geronimo Solano MD PhD LAB BLOOD ORDERABLES Fin al Result [facility] * Diabetic Eye Exam (11/04/2023 3:27 PM CDT) Historical Provider HEALTH MAINTENANCE Final Result * ALBUMIN / CREATININE URINE RATIO, RANDOM (12/31/2016 1:05 PM WOOL HAT SANDING MACHINE OPERATOR) Microalbumin, ur <12.0 mcg/mL [facility] Creatinine, ur 70.00 mg/dL [facility] Microalbumin/cr eat ratio <17.1 0.1 - 29.9 mcg/mg Cr [facility] Urine 12/31/2016 1:05 PM WOOL HAT SANDING MACHINE OPERATOR 12/31/2016 1:27 PM WOOL HAT SANDING MACHINE OPERATOR Lorena Mooney MD LAB BLOOD BANK TEST ORDERABLES Final Result Performing Organization Address [facility] Co de Phone Number [facility] [place] [address] from Last 3 Months or Most Recently Relevant to Health Maintenance Insurance [facility] Advance Directives For more information, please contact: [phone] * Full Code (Latest Code Status on File) Date Activated Date Inactivated Comments 02/03/2022 11:11 PM 02/10/2022 8:57 PM Care Teams Mail Handler Relationship Specialty Start Date End Date Rich Castillo MD PCP - General Family Medicine 12/14/21
--- OUTSIDE RECORDS SUMMARY | 2024-12-07 08:54 | XMS_ITS | Encounter Summary ---
Author Organization [facility] Healthcare Address [address] [place] [address] Care Team Providers Care Senior Producer Name Role Phone Rich Castillo MD Primary Care Provider [phone] Reason for Visit * Reason Onset Date Comments eye redness 11/06/2024 Encounter Details Date Type Department Care Team (Late st Contact Info) Description 11/06/2024 Nurse Triage [facility] Medical Group Family Medicine at [address] [place] [address] Rich Castillo MD [address] [place] [address] [address] [place], [place] [id number] Social History Tobacco Use Types Packs/Day Years Used Date Smoking Tobacco: Former Cigarettes Smokeless Tobacco: Never Comments:trying to quit [...] often do you attend chur ch or bahai services? Never 02/11/2022 Do you belong to any clubs o r organizations such as samaritan groups, unions, fraternal or athletic groups, or [...] encounter Miscellaneous Notes * Telephone Encounter - Melody Roper - 11/06/2024 2:44 PM CDT Patient has an appt on 11/07/25 * Telephone Encounter - July Martinez RN - 11/06/2024 10:31 AM CDT Reason for Conversation eye redness Background Stacia May called about eye redness and blurred vision in her rt eye. Pt was seen 10/12 at the ED and was given 10 days of antibiotic eye drops but it hasn't gotten better. Vision became blurred about a week ago in right eye. Sclera of rt eye is pink and lids are red. No swelling. Pt also now has some redness around left eye. Eye is watery, eye lashes are crusted. No fever, runny nose, cough, or vomiting. No eye pain. Eye is light sensitive. Per protocol, pt should be evaluated today. No office appts available. Appt scheduled in the office tomorrow morning. Tasking message to the office for any further follow up with pt today since appt is not until tomorrow. Home care reviewed. Advised pt to call back if symptoms worsen or with any other concerns/questions. Pt verbalized understanding. Disposition Go to Office Now Reason for Disposition Looking at light causes MODERATE to SEVERE eye pain (i.e., photophobia) Protocols Used Eye - Dtkakhc-Axasq-YB * Telephone Encounter - July Martinez RN - 11/06/2024 10:24 AM CDT Regarding: can't see out of right eye and its red like pinkeye ----- Message from Elana Posada sent at 11/06/2024 10:19 AM CDT ----- Symptom Based Call Chief Complaint(s): can't see out of right eye and its red like pinkeye Duration: seen 10/12 and given 10 day eye drops but no improvement What type of symptom(s) is the patient experiencing? Red Flag. Is the patient concerned they are experiencing a medical emergency requiring an ambulance? No Additional Comments: Sending red flag since can't see out of eye, denies other symptoms. Does message need to be routed? Yes-Action Needed documented in this encounter Plan of Treatment Not on file documented as of this encounter Visit Diagnoses Not on filedocumented in this encounter Care Teams Senior Producer Relationship Specialty Start Date End Date Rich Castillo MD PCP - General Family Medicine 12/14/21 documented as of this encounter
--- NOTE | 2024-12-07 10:39 | ED.GENADULT ---
HPI - General Adult General Chief complaint: Unspecified Stated complaint: picc line bleeding Time Seen by Provider: 12/07/24 09:53 History of Present Illness HPI narrative: Stacia May is a 4-year-old female who presents with mom, was recently discharged from outside hospital with central line placement for nail IV antibiotics. Patient is also on Eliquis b.i.d. mom and patient are poor historians and do not exactly know what she is on the IV medications or blood thinners for. However they are here today because she woke up after turning onto her side and noted some blood around her central line. It denies any pain to the area denies any significant trauma to the area denies any other new symptoms. Review of Systems Review of Systems: All systems reviewed & are unremarkable except as noted in HPI and below Exam Narrative: GENERAL: Well-appearing, well-nourished, and in no acute distress. HEAD: Normocephalic, atraumatic. EYES: PERRLA and EOMI. ENT: Nares clear, no rhinorrhea or epistaxis. Mucous membranes moist. Oropharynx without tonsillar hypertrophy exudate or other lesions. NECK: Supple. No adenopathy or masses. No carotid bruits or JVD CHEST: Clear to auscultation. No respiratory distress. No wheezes rales or rhonchi central line to right chest wall with dressing over it with saturated blood does not appear to be actively bleeding at this time. HEART: Regular rate and rhythm. No murmur heard. Normal peripheral pulses. ABDOMEN: Soft, nontender, nondistended, normal active bowel sounds. EXTREMITIES: Normal range of motion. No edema. SKIN: Warm, dry, no rash. NEURO: No focal deficits. Alert and oriented x3. PSYCH: Normal mood and affect. Course Vital Signs Vital signs: Vital Signs Temperature 36.8 C 12/07/24 08:53 Pulse Rate 80 12/07/24 08:53 Respiratory Rate 16 12/07/24 08:53 Blood Pressure 96/64 L 12/07/24 08:53 Pulse Oximetry 98 12/07/24 08:53 Temperature 36.8 C 12/07/24 08:53 Pulse Rate 80 12/07/24 08:53 Respiratory Rate 16 12/07/24 08:53 Blood Pressure 96/64 L 12/07/24 08:53 Pulse Oximetry 98 12/07/24 08:53 Medical Decision Making MDM Narrative Medical decision making narrative: 34-year-old female who presents with noticing some blood around her central line to her right chest wall today. There is some blood noted on the dressing her around where the central line is. Plan to do a dressing change to evaluate if there is any active bleeding noted a recurring. Dressing changed and patient monitored in the ED for couple hours in the emergency department no recurrent bleeding noted. Dressing a is clean and intact. Patient will be discharged home with continuation of use of the line with continued monitoring as instructed, patient denies any other acute complaints at this time. Medical Records Medical records reviewed: Yes I reviewed the external patient's medical records. Vital Signs Vital Signs: Vital Signs Temperature 36.8 C 12/07/24 08:53 Pulse Rate 80 12/07/24 08:53 Respiratory Rate 16 12/07/24 08:53 Blood Pressure 96/64 L 12/07/24 08:53 Pulse Oximetry 98 12/07/24 08:53 Temperature 36.8 C 12/07/24 08:53 Pulse Rate 80 12/07/24 08:53 Respiratory Rate 16 12/07/24 08:53 Blood Pressure 96/64 L 12/07/24 08:53 Pulse Oximetry 98 12/07/24 08:53 Vitals reviewed Imaging Data Radiologist's impression: Impressions Chest X-Ray 12/07/24 09:37 Impression: No acute cardiopulmonary abnormality. Discharge Plan Discharge Clinical Impression: Visit for wound check Patient Disposition: Home Condition: Stable Instructions: Antibiotic Form Additional Instructions: Your central line it is place correctly does not appear to be having any more active bleeding. Continue your medications and monitoring your line and caring for it as instructed. Please follow up with her primary care doctor in the next week if you do develop any new or worsening symptoms return to the emergency department. Patient Language: Macedonian Follow-up/Referrals: PHYSICIAN,EXECUTIVE CHAIRMAN OF THE BOARD [Non-Staff, Internal Medicine] Time of Disposition: 12:15
--- NOTE | 2024-12-07 11:05 | PC.NURSE ---
PICC line dressing changed. Area was full of clotted red blood. No active bleeding noted during dressing change. Pt tolerated well.
--- OUTSIDE RECORDS SUMMARY | 2024-12-07 12:08 | XMS_ITS | Encounter Summary ---
Author Organization [facility] Healthcare Address [address] [place] [address] Care Team Providers Care Multimedia Services Manager Name Role Phone Rich Castillo MD Primary Care Provider [phone] Reason for Visit * Reason Onset Date Comments MANUEL Questions 12/04/2024 Encounter Details Date Type Department Care Team (Late st Contact Info) Description 12/04/2024 Telephone [facility] Medical Group Family Medicine at [address] [place] [address] Rich Castillo MD [address] [place] [address] [address] [place], [place] [phone] MANUEL Questions Social History Tobacco Use Types [...] often do you attend chur ch or baptism services? Never 02/11/2022 Do you belong to any clubs o r organizations such as sikhism groups, unions, fraternal or athletic groups, or [...] place to sleep or slept in a long term (including now)? No 02/11/2022 Comments No Sex and Gender Information Value Date Recorded Sex Assigned at Not on file Legal Sex Female 1:53 AM CDT Gender Identity Not on file Sexual Orientation Not on file documented as of this encounter Miscellaneous Notes * Telephone Encounter - Chelsi Pena - 12/04/2024 2:10 PM CDT MANUEL Questions (Message from [facility] Access Center-Production Operations Engineer): Has patient been discharged at time of call? Yes Date Admitted: 11/15 Date Discharged: 12/04 Facility Admitted To: [facility] Reason for Stay? Low platelets If prescribed [...] on filedocumented in this encounter Care Teams Multimedia Services Manager Relationship Specialty Start Date End Date Rich Castilol MD PCP - General Family Medicine 12/14/21 documented as of this encounter
--- OUTSIDE RECORDS SUMMARY | 2024-12-07 12:08 | XMS_ITS ---
Author Organization [facility] Address [address] [place] [address] Care Team Providers Care Space Physicist Name Role Phone Rich Castillo MD Primary Care Provider [phone] Home Infusion Status:Closed (Closed) Start date:11/28/2024 Enrollment date:11/28/2024 End date:12/06/2024 Close reason:Transferred to Another Entity Related service episodes:Anti-Infective (Closed) Overview Option Care Continued Care and Services Coordination
--- OUTSIDE RECORDS SUMMARY | 2024-12-07 12:08 | XMS_ITS | Encounter Summary ---
Author Organization [facility] Healthcare Address [address] [place] [address] Care Team Providers Care Instrumentation Supervisor Name Role Phone Rich Castillo MD Primary Care Provider [phone] Reason for Visit * Reason Onset Date Comments eye redness 11/06/2024 Encounter Details Date Type Department Care Team (Late st Contact Info) Description 11/06/2024 Nurse Triage [facility] Medical Group Family Medicine at [address] [place] [address] Rich Castillo MD [address] [place] [address] [address] [place], [place] [phone] Social History Tobacco Use Types Packs/Day Years [...] often do you attend chur ch or lutheran services? Never 02/11/2022 Do you belong to any clubs o r organizations such as mormon groups, unions, fraternal or athletic groups, or [...] place to sleep or slept in a correction (including now)? No 02/11/2022 Comments No Sex [...] pain (i.e., photophobia) Protocols Used Eye - Nhnvkli-Heruh-YX * Telephone Encounter - July Martinez RN [...] on filedocumented in this encounter Care Teams Instrumentation Supervisor Relationship Specialty Start Date End Date Rich Castillo MD PCP - General Family Medicine 12/14/21 documented as of this encounter
--- OUTSIDE RECORDS SUMMARY | 2024-12-07 12:08 | XMS_ITS | Clinical Summary ---
Author Organization [facility] Address [address] [place] [address] Care Team Providers Care Drum Sander Offbearer Name Role Phone Irina You APRN-PALOMO Primary Care Provider [phone] Source Comments [facility],non-owned Affiliates and Associated Physician Practices is amultiple site organization consisting of ambulatory clinics and hospital sitesin [place], [place], [place] and [place]. This disclosure is being madepursuant to the Care Everywhere program and may not contain all information available regarding this patient. Last updated 17.[facility] Allergies Active Allergy Reactions Criticality Noted Date [...] migh t be different from the original. [facility] 2014 Problem Noted Date Diagnosed [...] on file Legal Sex Female 5:34 AM WATER PURIFIER Gender Identity Not on file Sexual Orientation [...] topic Insurance MEDICAID [place] Care Teams Drum Sander Offbearer Relationship Specialty Start Date End Date Irina You APRN-CNP [address] [place] [address] PCP - General 06/15/19
--- OUTSIDE RECORDS SUMMARY | 2024-12-07 12:08 | XMS_ITS | Clinical Summary ---
Author Organization [facility] Address [address] [place] [address] Care Team Providers Care New Vehicle Sales Consultant Name Role Phone Rich Castillo MD Primary Care Provider Allergies Active Allergy Reactions Criticality Noted Date [...] 04/14/2022 Assessment & Plan (04/14/2022 2:49 PM BAKERY DELIVERER): 31 y.o. female with nicotine dependence, cigarettes; encouraged smoking cessation but patient not receptive at this time Smoking cessation resources: 1) State tobacco quitline (8-256-SIAM-NOW) 2) Web support: CDC.gov/quit; Smokefree.gov; Skilljar 3) Text support: FINDING ROVER.GrabCAD/SmokefreeTXT 4) Raeann support: Smokefrcodebender.gov/tools-tips/apps/quitstart Smoking cessation medications: 1) Nicotine replacement therapy (NRT) - patch, gum, lozenge, inhaler, and nasal spray 2) Bupropion (Wellbutrin and Zyban) 3) Varenicline (Chantix and Champix) Junctional rhythm 02/08/2022 Assessment & Plan (02/09/2022 4:19 PM BAKERY DELIVERER): Once stable from endocrine standpoint and electrolytes are replenished. 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 02/05/2022 Assessment & Plan (02/09/2022 4:21 PM BAKERY DELIVERER): No period and low FSH, LH, and estradiol - will likely need replacement therapy; can be pursued as outpatient Thrombocytopenia 02/03/2022 Assessment & Plan (02/09/2022 4:16 PM BAKERY DELIVERER): Possibly related to nutritional deficiency, now improving - folate low and pt is on replacement - copper wnl Assessment & Plan (02/04/2022 12:10 AM BAKERY DELIVERER): -possibly related to nutritional deficiency -monitor CBC Eczema 09/02/2021 Assessment & Plan (09/02/2021 9:01 PM CDT): Advised using cetaphil or eucerin soap followed by lotion qd Early loss of permanent teeth 02/05/2021 Anemia 02/05/2021 Assessment & Plan (02/09/2022 4:22 PM BAKERY DELIVERER): Pt has not had menstrual period in [...] Smoking cessation resources: 1) State tobacco quitline (9-105-PAXP-NOW) 2) Web support: CDC.gov/quit; Smokefree.gov; becomeanex.org 3) Text support: Smokefree.gov/SmokefreeTXT 4) Raeann support: Smokefree.gov/tools-tips/apps/quitstart Smoking cessation medications: 1) Nicotine replacement therapy (NRT) - patch, gum, lozenge, inhaler, and nasal spray 2) Bupropion (Wellbutrin and Zyban) 3) Varenicline (Chantix and Champix) Assessment & Plan (02/05/2021 1:40 PM BAKERY DELIVERER): Advised smoking cessation, patient working towards cutting back Amenorrhea 02/05/2021 Assessment & Plan (02/05/2021 1:40 PM BAKERY DELIVERER): Discussed potential [facility]cfp complications of amenorrhea in premenopause. Advised close follow up with machine inker, will help her arrange appt. 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 Assessment & Plan (02/04/2022 12:08 AM BAKERY DELIVERER): -s/p transphenoidal resection x 2 (2016) and radiotherapy. Follows with NSGY and had follow up bMRI 10/2021 which was unchanged from prior. Assessment & Plan (09/02/2021 9:00 PM CDT): Will order mri of brain for routine monitoring She has appt pending for f/u with neurology that she will keep Assessment & Plan (04/22/2021 7:09 PM BAKERY DELIVERER): They will cancel appt with Dr. Garcia due to insurance issues. Will attempt a different office due to this concern. 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 Thyroid replacement will likely help. Discontinue Atorvastatin. Assessment & Plan (02/05/2021 1:39 PM BAKERY DELIVERER): History of, will evaluate on labs Diabetes insipidus 11/19/2016 Assessment & Plan (02/09/2022 4:21 PM BAKERY DELIVERER): Sp grav 1.001 and UOP > 5L - DDAVP 500mcg BID Secondary hypothyroidism 11/19/2016 Assessment & Plan (02/09/2022 4:18 PM BAKERY DELIVERER): Pt is s/p resection and radiation for Rathke's cleft cyst, now presenting with symptomatic hypothyroidism - IV levothyroxine transitioned to PO synthroid 75. Assessment & Plan (09/02/2021 8:59 PM CDT): Advised appt with endo as planned Secondary hypocortisolism (CMS/HCC) 11/19/2016 Assessment & Plan (02/09/2022 4:18 PM BAKERY DELIVERER): Insufficient response to cosyntropin stim test probably [...] no fatigue, no bone pain, no muscle [id number], no mood changes (depression). Risk factors: no dark-colored skin, no obesity, no bariatric surgery, no cystic fibrosis, no Crohn's disease, no celiac disease, no hepatic-renal disease Plan: 1) Repeat Vitamin 25(OH)-D level 2) Finish Vit D2 50,000 IU/weekly x 8 weeks; transition to maintenance Vit D3 5,000 IU/day Assessment & Plan (04/14/2022 2:48 PM BAKERY DELIVERER): 31 y.o. female with history of vitamin D deficiency-insufficiency Latest Vitamin 25(OH)-D level = 19 (<20 ng/ml, Deficiency) Denies active symptoms: no fatigue, no bone pain, no muscle vshryytu-enflq-vdscds, no mood changes (depression). Risk factors: no dark-colored skin, no obesity, no bariatric surgery, no cystic fibrosis, no Crohn's disease, no celiac disease, no hepatic-renal disease Plan: 1) Repeat Vitamin 25(OH)-D level 2) Finish Vit D2 50,000 IU/weekly x 8 weeks; transition to maintenance Vit D3 5,000 IU/day Assessment & Plan (02/09/2022 4:15 PM BAKERY DELIVERER): Replete with VitD Assessment & Plan (02/05/2021 1:37 PM BAKERY DELIVERER): History of, will evaluate on labs Ovarian cyst, left 05/09/2014 Overview (02/05/2021): Large complex cyst measuring 17 x 10 x 9 mm on 04/08/14 US Overview: Large complex cyst measuring 17 x 10 x 9 mm on 04/08/14 US Resolved Problems Problem Noted Date Diagnosed Date Resolved Date Dehydration 02/24/2022 05/27/2022 Hypothermia 02/06/2022 02/09/2022 Assessment & Plan (02/09/2022 4:20 PM BAKERY DELIVERER): Likely due to AI. Now improved. Hypoadrenalism 02/05/2022 02/09/2022 Conjunctivitis 02/05/2022 01/17/2023 Assessment & Plan (02/08/2022 8:23 PM BAKERY DELIVERER): Improved. Polytrim started 02/04; may be discontinued after 7 days of tx. Decreased oral intake 02/04/20222021 Assessment & Plan (02/09/2022 4:21 PM BAKERY DELIVERER): -Reports poor PO intake for several days [...] syndrome Assessment & Plan (02/04/2022 12:15 AM BAKERY DELIVERER): -Reports poor PO intake for several days [...] 05/27/2022 Assessment & Plan (02/09/2022 4:17 PM BAKERY DELIVERER): Likely 2/2 hypotension related to volume depletion [...] 11/25. Assessment & Plan (02/04/2022 12:06 AM BAKERY DELIVERER): -likely 2/2 hypotension related to volume repletion. She also has significant hypokalemia which could cause arrhythmias but lower suspicion for this as cause -s/p IVF with improvement in BP -can consider TTE Hypotension 02/03/2022 02/09/2022 Assessment & Plan (02/09/2022 4:21 PM BAKERY DELIVERER): Likely 2/2 volume depletion & AI, now resolved s/p IVF and steroids. Assessment & Plan (02/04/2022 12:07 AM BAKERY DELIVERER): -likely 2/2 volume depletion and now resolved s/p IVF. Low suspicion sepsis. Metabolic alkalosis 02/03/2022 02/10/20 Assessment & Plan (02/08/2022 8:26 PM BAKERY DELIVERER): -now resolved -suspect contraction alkalosis Assessment & Plan (02/04/2022 12:09 AM BAKERY DELIVERER): -suspect contraction alkalosis, denies N/V, diuretic use Hypokalemia 02/03/2022 05/27/2022 Assessment & Plan (02/09/2022 4:21 PM BAKERY DELIVERER): Improved. Replete as needed Assessment & Plan (02/04/2022 12:10 AM BAKERY DELIVERER): -possibly 2/2 poor PO intake -s/p KCl 80 IV and 80 PO. Recheck K. -Mg normal -Tele until K improves BMI 26.0-26.9,adult 04/22/2021 01/18/20 23 Assessment & Plan (04/22/2021 7:10 PM BAKERY DELIVERER): Obesity is unchanged. Discussed the patient's BMI. The BMI is above average. BMI management plan is completed. BMI Follow-up includes: nutrition counseling, exercise counseling and education provided. Dysphagia 02/05/2021 01/17/2023 Encounter to establish care 02/05/2021 09/02/2021 Stage 3 chronic kidney disease 02/05/2021 05/27/2022 Candidiasis 02/05/2021 01/17/2023 Assessment & Plan (02/05/2021 1:40 PM BAKERY DELIVERER): Chronic problem, refill nystatin as needed. Advised strict glucose control to assist in resolving steve. Anxiety 04/27/2018 01/17/2023 Type 2 diabetes mellitus 11/19/2016 Assessment & Plan (02/05/2022 6:20 PM BAKERY DELIVERER): -Last A1c 5.1 (04/2021). No longer on medications. Assessment & Plan (02/04/2022 12:05 AM BAKERY DELIVERER): -Last A1c 5.1 (04/2021). No longer on medications. Assessment & Plan (04/22/2021 7:09 PM BAKERY DELIVERER): hgb a1c 5.1% in office Encouraged completing fasting labs Discussed and advised not skipping meals, eating small snacks in between Discussed that at this time due to lower sugars and normal hgb a1c that medications will not be restarted, however this is always subject to change. Assessment & Plan (02/05/2021 1:38 PM BAKERY DELIVERER): Discussed with patient and mom monitoring at [...] Type Department Care Team Description 12/04/2024 Telephone [facility] Medical [facility] Family Medicine at [address] [address] Rich Castillo MD MANUEL Questions 11/30/2024 Telephone [facility] Home Infusion Therapy [address] [place] [address] Roxanne Whitaker 11/27/2024 Telephone [facility] Home Care Services [address] [place] [address] [place] [phone] Unknown, Notinfile 11/21/2024 Telephone [facility] Home Care Services [address] [place] [address] [place] [phone] Giulia De La Rosa 11/07/2024 9:30 AM CDT Office Visit [facility] Medical [facility] Family Medicine at [address] [place] [phone] Rich Castillo MD Acute bacterial conjunctivitis of both eyes (Primary Dx) 11/06/2024 Nurse Triage [facility] Medical Group Family Medicine at [address] [place] [address] Rich Castillo MD from Last 3 Months [...] often do you attend chur ch or temple services? Never 02/11/2022 Do you belong to any clubs o r organizations such as worship groups, unions, fraternal or athletic groups, or [...] place to sleep or slept in a half-way (including now)? No 02/11/2022 Comments No Sex [...] RANDOM Routine Gen Lab 12/31/2016 1:05 PM BAKERY DELIVERER from Last 3 Months or Most Recently [...] AM CDT 07/26/2024 12:[address] [facility] - 07/26/2024 1:34 PM CDT Beginning June 20, 2024, LDL are now calculated by the Hernández-NIH equation (BRENDON Cardiol 2020;5:540-8) which is more accuarate than the older Friedewald equation in patients with low LDL cholesterol or high triglycerides. us Geronimo Solano MD PhD LAB BLOOD ORDERABLES Fin al Result [facility] * [...] PhD LAB BLOOD ORDERABLES Fin al Result [facility] * Diabetic Eye Exam (11/04/2023 3:27 PM CDT) Historical Provider HEALTH MAINTENANCE Final Result * ALBUMIN / CREATININE URINE RATIO, RANDOM (12/31/2016 1:05 PM BAKERY DELIVERER) Microalbumin, ur <12.0 mcg/mL [facility] Creatinine, ur 70.00 mg/dL [facility] Microalbumin/cr eat ratio <17.1 0.1 - 29.9 mcg/mg Cr [facility] Urine 12/31/2016 1:05 PM BAKERY DELIVERER 12/31/2016 1:27 PM BAKERY DELIVERER Lorena Mooney MD LAB BLOOD BANK TEST ORDERABLES Final Result Performing Organization Address [facility] Co de Phone Number [facility] Department [place] [address] from Last 3 Months or Most Recently Relevant to Health Maintenance Insurance [facility] Advance Directives For more information, please contact: [phone] * Full Code (Latest Code Status on File) Date Activated Date Inactivated Comments 02/03/2022 11:11 PM 02/10/2022 8:57 PM Care Teams New Vehicle Sales Consultant Relationship Specialty Start Date End Date Rich Castillo MD PCP - General Family Medicine 12/14/21
--- OUTSIDE RECORDS SUMMARY | 2024-12-07 12:08 | XMS_ITS | Encounter Summary ---
Author Organization [facility] Address [address] [place] [address] Phone Care Team Providers Care Informatics Manager Name Role Phone Irina You NP Primary Care Provider [phone] Abi Romo Primary Care Provider [phone] Rich Castillo MD Primary Care Provider [phone] Josefa White RN Unavailable [phone] Encounter Details Date Type Department Care Team [...] COVID: Suspected 02/03/2022 02/03/2022 02/03/2022 3:45 PM SOLID WASTE ENGINEER documented as of this encounter Care Teams Informatics Manager Relationship Specialty Start Date End Date Irina You NP [address] [place] [phone] PCP - General 09/14/16 02/04/21 Abi Romo PA [address] [place] [id number] PCP - General Fish And Wildlife Biologist 02/05/21 12/13/21 Rich Castillo MD [address] [place] [id number] PCP - General Family Medicine 12/14/21 Josefa White, RN [address] [address] [facility] Outpatient Brim Plater 02/11/22 03/11/22 documented as of this encounter
--- OUTSIDE RECORDS SUMMARY | 2024-12-07 12:08 | XMS_ITS | Clinical Summary ---
Author Organization [facility] Address [address] [place] [address] Care Team Providers Care Pta Name Role Phone Irina You KENZIE Primary Care Provider [phone] Corky Leos MD Unavailable [phone] Allergies Active Allergy Reactions Criticality Noted [...] polyneuropathy, without long-term current use of insulin ([facility]/HCC HHS/HCC) Take 1 tablet by mouth daily before breakfast 30 tablet 11 07/15/19 Active ONE TOUCH ULTRA 2 w/Device KitIndications:Typ e 2 diabetes mellitus with diabetic polyneuropathy, without long-term current use of insulin ([facility]) USE TO TEST ONCE EVERY [...] 10:05 AM CDT) HGB A1C 11.1 % -[facility] (3), [facility] 10/10/2019 10:0 5 AM CDT Logan Reid MD LABORATORY Final Result -[facility] (3), [facility] [facility] [address] [place] [address], * (ABNORMAL) LIPID PANEL (09/06/2019 11:03 AM CDT) CHOLESTEROL 351(H) <200 MG/DL 09/06/2019 7:44 PM CDT [facility] TRIGLYCERIDES 326(H) <150 MG/DL 09/06/2019 7:44 PM CDT [facility] HDL 37(L) >40.0 MG/DL 09/06/2019 7:44 PM CDT [facility] LDL (CALCULATED) 249(H) <100 MG/DL 09/06/2019 7:44 PM CDT [facility] NON HDL CHOLESTEROL 314(H) <130 MG/DL 09/06/2019 7:44 PM CDT [facility] CHOL/HDL RATIO 9.5(H) 0.0 - 4.5 09/06/2019 7:44 PM CDT [facility] VLDL CALCULATION 65(H) 5 - 55 MG/DL 09/06/2019 7:44 PM CDT [facility] LIPID INTERPRETATION 09/06/2019 7:44 PM T [facility] Comment: [facility] CONCENSUS REPORT RECOMMENDATIONS: ADULT CHILD LOW RISK: CHOLESTEROL <200 <170 TRIGLYCERIDE <150 --- HDL >=60 --- LDL <100 <110 BORDERLINE: CHOLESTEROL 200-239 170-199 TRIGLYCERIDE 150-199 --- HDL 40-59 --- LDL 100-159 110-129 HIGH RISK: CHOLESTEROL >=240 >=200 TRIGLYCERIDE >=200 --- HDL <40 --- LDL >=160 >=130 09/06/2019 11:0 3 AM CDT Irina You MUD TANK OPERATOR LABORATORY Final Result [facility] [address] [id number], from Last 3 Months or Most Recently Relevant to Health Maintenance Insurance [employer] Care Teams Pta Relationship Specialty Start Date End Date Irina You FNP [address] [place] [id number] PCP - General Nurse Practitioner Family 02/03/18 Corky Leos MD [facility] [address] [place] [address] [employer] Processor Grain CARDIOVASCULAR DISEASE 11/23/18
--- OUTSIDE RECORDS SUMMARY | 2024-12-07 12:08 | XMS_ITS | Clinical Summary ---
Author Organization [facility] Address [address] [place] [address] Phone Care Team Providers Care Radio Maintainer Name Role Phone Rich Castillo MD Primary Care Provider [phone] Allergies Active Allergy Reactions Criticality Noted Date [...] Type Department Care Team Description 12/06/2024 Abstract [facility] INFECTIOUS DISEASE [place] [address] [place] [phone] Ej Bhatt MD 12/05/2024 Telephone [facility] INFECTIOUS DISEASE [place] [address] [place] [address] Ej Bhatt MD Medication Question 12/04/2024 External Device Data STL ABSTRACTION Provider, Abstract 12/04/2024 Orders Only [facility] Oncology and Hematology [address] [place] [address] Lulú Rodriguez MD Acute deep vein thrombosis (DVT) of axillary vein of right upper extremity (Primary Dx) 11/27/2024 External Device Data STL ABSTRACTION Provider, Abstract 11/23/2024 Results Follow-Up [facility] [address] [place] [address] Eusebio Olson PHARMACIST VANCOMYCIN LEVEL TROUGH, BONE MARROW ASPIRATION & BIOPSY 11/22/2024 Travel 11/20/2024 3:00 PM CDT Anesthesia Event [facility] Interventional Radiology S [facility] [address] [place] [address] Herrera Zhang MD 11/20/2024 External Device Data STL ABSTRACTION Provider, Abstract 11/20/2024 External Device Data STL ABSTRACTION Provider, Abstract 11/20/2024 External Device Data STL ABSTRACTION Provider, Abstract 2024 11:13 PM CDT - 12/04/2024 1:04 PM CDT Hospital Encounter [facility] Cardiac Progressive Care Unit [address] [place] [address] Nelson Schroeder MD Nguyen, Steven, MD Bockerstett, Jennifer E, DO Gojenny, MD aPula Bernabeintermountain healthcareRhiannon, Thrombocytopenia Discharge Disposition: Home or Self Care [...] worry about transportation for future doctor visits, 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 No 2024 Housing Stability [...] st Contact Info) Description 12/25/2024 1:00 PM FOOD PROCESSOR Office Visit [facility] Gynecologic Oncology Liang [address] [place] [address] Lena Eng DO [address] [place] [address] 03/05/2025 10:15 AM FOOD PROCESSOR Office Visit [facility] Oncology and Hematology [place] [address] [address] [facility] [address] [address] Lulú [place] [address] [facility] [address] [place] [address] Health Maintenance Due Date Last Done [...] AND SCREEN Routine 11/16/2024 4:17 AM CDT [id number] EVALUATION Routine 11/16/2024 4 :17 AM CDT [...] - 99 mg/dL 12/04/2024 8:12 AM CDT [facility] LABORATORY [facility] SPECIMEN SOURCE, GLUCOSE POC Whole Blood 12/04/2024 8:12 AM CDT [facility] COMMENT, GLU POC Alerted Nurse/DONIS/D r 12/04/2024 8:12 AM CDT [facility] Blood, whole 12/04/2024 8:12 AM CDT 12/04/2024 8:19 AM CDT us Rhiannon Mcmahan DO POINT OF CARE TESTING Final Result [id number] [address] [place] [address] * MANUAL DIFFERENTIAL (12/04/2024 5:00 AM CDT) Only the most recent of10 resultswithin the time period is included. Pathologist [facility] PLATELET EST. Consistent w Count 12/04/2024 6:32 AM CDT [facility] ANISOCYTOSIS 1+ /hpf 12/04/2024 6:32 AM CDT [facility] POLYCHROMASIA 1+ /hpf 12/04/2024 6:32 AM CDT [facility] HYPOCHROMIA 1+ /hpf 12/04/2024 6:32 AM CDT [facility] Blood Collection / Unknown 12/04/2024 5:00 AM CDT 12/04/2024 5:19 AM CDT us Aniya Galan DO HEMATOLOGY ORDERABLES COM Final Result Performing Organization Address City/[facility] Co de Phone Number [facility]# [id number] [address] [place] [address] * (ABNORMAL) CBC WITH DIFFERENTIAL (12/04/2024 5:00 AM CDT) Only the most recent of20 resultswithin the time period is included. Pathologist [facility] WBC 16.1(H) 4.0 - 9.8 K/uL 12/04/2024 5:52 AM CDT [facility] RBC 2.62(L) 3.90 - 4.90 M/uL 12/04/2024 5:52 AM CDT [facility] HEMOGLOBIN 7.4(L) 11.8 - 14.8 g/dL 12/04/2024 5:52 AM CDT [employer] LABORATORY SERVICES - [facility] HEMATOCRIT 24.6(L) 35.5 - 44.0 % 12/04/2024 5:52 AM CDT [employer] LABOR[facility] SERVICES - . [facility] MCV 93.9 82.0 - 99.0 fL 12/04/2024 5:52 AM CDT [employer] LABORAT[facility] SERVICES - . [facility] MCH 28.2 27.2 - 32.6 pg 12/04/2024 5:52 AM CDT [employer] [facility]ORAT[facility] SERVICES - [facility] MCHC 30.1(L) 31.5 - 35.5 g/dL 12/04/2024 5:52 AM CDT [employer] LABORATORY SERVICES - [facility] RDW 16.3(H) 11.5 - 14.5 % 12/04/2024 5:52 AM CDT [employer] LABORAT[facility] SERVICES - [facility] RDW-STDEV 53.8(H) 37.1 - 48.7 fL 12/04/2024 5:52 AM CDT [employer] LABORATORY SERVICES - [facility] PLATELETS 240 140 - 350 K/uL 12/04/2024 5:52 AM CDT [employer] LABORATORY SERVICES - [facility] MPV 9.9 9.3 - 12.4 fL 12/04/2024 5:52 AM CDT [employer] LABORATORY SERVICES - . [facility] NEUTROPHILS 67 % 12/04/2024 5:52 AM CDT [employer] LABORATORY SERVICES - . [facility] LYMPHOCYTES 27 % 12/04/2024 5:52 AM CDT [employer] LABORATORY SERVICES - . [facility] MONOCYTES 4 % 12/04/2024 5:52 AM CDT [employer] [facility]ATORY SERVICES - . [place] EOSINOPHILS 1 % 12/04/2024 5:52 AM CDT [employer] LABORATORY SERVICES - . [facility] BASOPHILS 0 % 12/04/2024 5:52 AM CDT [employer] LABORATORY SERVICES - . [facility] IMMATURE GRANULOCYTES 1 % 12/04/2024 5:52 AM CDT [employer] LABORATORY SERVICES - . [facility] Comment:IG (Immature Granulo cyte) count includes Metamyelocytes, Myelocytes, and Promyelocytes NEUTROPHIL ABSOLUTE 10.84(H) 1.90 - 7.00 K/uL 12/04/2024 5:52 AM CDT [employer] LABORATORY SERVICES - . [place] LYMPHOCYTE ABSOLUTE 4.35 0.70 - 4.50 K/uL 12/04/2024 5:52 AM CDT [facility] LABORATORY SERVICES - [facility] MONOCYTE ABSOLUTE 0.62 0.10 - 1.30 K/uL 12/04/2024 5:52 AM CDT [facility] LABORATORY SERVICES - [facility] EOSINOPHIL ABSOLUTE 0.09 0.00 - 0.70 K/uL 12/04/2024 5:52 AM CDT [facility] LABORATORY SERVICES - [facility] BASOPHILS ABSOLUTE 0.04 0.00 - 0.20 K/uL 12/04/2024 5:52 AM CDT [facility] LAB[facility]ATORY SERVICES - . [place] IMMATURE GRANULOCYTES ABSOLUTE 0.13(H) 0.00 - 0.03 K/uL 12/04/2024 5:52 AM T [facility]ORY SERVICES - . [place] Blood Collection / Unknown 12/04/2024 5:00 AM CDT 12/04/2024 5:19 AM CDT Aniya Galan DO HEMATOLOGY ORDERABLES Final Result [facility] [employer] SERVICES [facility]# [id number] [address] [place] [address] * (ABNORMAL) BASIC METABOLIC PANEL (12/04/2024 5:00 AM CDT) Only the most recent of20 resultswithin the time period is included. SODIUM 134(L) 136 - 145 mmol/L 12/04/2024 6:15 AM T [facility] LABORATORY SERVICES [facility] POTASSIUM 3.9 3.5 - 5.0 mmol/L 12/04/2024 6:15 AM T [facility] LABORATORY [facility] CHLORIDE 95(L) 98 - 107 mmol/L 12/04/2024 6:15 AM T [facility] LABORATORY [facility]. [facility] CO2 32(H) 22 - 29 mmol/L 12/04/2024 6:15 AM T [facility] LABORATORY SERVICES [facility] CALCIUM 9.7 8.6 - 10.2 mg/dL 12/04/2024 6:15 AM CDT [facility] BUN 16 6 - 20 mg/dL 12/04/2024 6:15 AM T [facility] CREATININE 0.73 0.51 - 0.95 mg/dL 12/04/2024 6:15 AM T [facility] GLUCOSE 137(H) 74 - 99 mg/dL 12/04/2024 6:15 AM T [facility] GFR >60 >=60 mL/min/1.7 3 sq meter 12/04/2024 6:15 AM T [facility] Comment:eGFR calculated with 2020 CKD-EPI equation. Vegetarian diet, extremely high or low muscle mass, and may affect results. Cystatin C with Glomerular Filtration Rate is a suitable alternative for these patients. ANION GAP 7(L) 8 - 16 mmol/L 12/04/2024 6:15 AM T [facility] Blood Collection / Unknown 12/04/2024 5:00 AM CDT 12/04/2024 5:19 AM CDT us Aniya Galan DO CHEMISTRY ORDERABLES F inal Result [facility]# [id number] [address] [facility] [place] [address] * IR VENOUS ACCESS (12/03/2024 10:29 AM [...] ABO GROUP O 11/30/2024 1:19 PM CDT [facility] LABORATORY SERVICES -- [facility] RH (D) TYPE Positive 11/30/2024 1:19 PM CDT [facility] LABORATORY SERVICES -- [facility] ANTIBODY SCREEN Negative 11/30/2024 1:19 PM CDT [facility] LABORATORY SERVICES -- [facility] Blood Venipuncture / Unknown 11/30/2024 11:29 AM CDT 11/30/2024 11:57 AM CDT us Aniya Galan DO BLOOD BANK ORDERABLES Edited Result - Final [facility] LABORATORY SERVICES -- [facility] CLIA# [id number] [address] [place] [address] * PREPARE RED BLOOD CELLS (11/30/2024 7:13 AM CDT) Only the most recent of3 resultswithin the time period is included. COMPONENT TYPE [id number] [facility] LABORATORY SERVICES -- [facility] COMPONENT IDENTIFICATION [id number] [facility]ORY SERVICES -- [facility] [facility] ABO O [facility]ORY SERVICES -- [facility] [facility] RH POS [facility]ORY SERVICES -- [facility] CROSSMATCH Compatible [facility] LABORATORY SERVICES -- [place] COMPONENT STATUS Transfused ME [facility] SERVICES -- [facility] COMPONENT EXPIRATION DATE/TIME [id number] [facility] LABORATORY SERVICES -- .[facility] COMPONENT CODING SYSTEM 5100 [facility] LABORATORY SERVICES -- .[facility] VOLUME, BLOOD PRODUCT 279 [facility] LABORATORY SERVICES -- .[facility] Other, specify 11/30/2024 7: 13 AM CDT Aniya Galan DO LAB TRANSFUSION ORDERA BLES Edited Result - Final [facility] [employer] SERVICES -- [facility] CLIA# [id number] [address] [place] [address] * BLOOD CULTURE (11/29/2024 5:53 AM CDT) Only the most recent of10 resultswithin the time period is included. Pathologist [facility] BLOOD CULTURE No growth 12/04/2024 7:00 AM CDT [facility] LABORATORY SERVICES - [facility] Blood (Peripheral) Venipuncture / Unknown 11/29/2024 5:53 AM CDT 11/29/2024 6:01 AM CDT Ej Bhatt MD MICROBIOLOGY - GENERAL ORDERABLE S Final Result [facility] [employer] [facility]# [id number] [address] [place] [address] * (ABNORMAL) C-REACTIVE PROTEIN (11/28/2024 3:27 AM CDT) Only the most recent of3 resultswithin the time period is included. CRP 186.0(H) <5.0 mg/L 11/28/2024 9:58 AM CDT [facility] Blood Venipuncture / Unknown 11/28/2024 3:27 AM CDT 11/28/2024 3:39 AM CDT Ej Bhatt MD CHEMISTRY ORDERABLES Final Resul t Performing Organization Address [facility] Co de Phone Number [facility]# [id number] [address] [place] [address] * (ABNORMAL) CK (11/28/2024 3:27 AM CDT) CK 13(L) 20 - 180 U/L 11/28/2024 11:12 AM CDT [facility] Blood Venipuncture / Unknown 11/28/2024 3:27 AM CDT 11/28/2024 3:39 AM CDT Ej Bhatt MD CHEMISTRY ORDERABLES Final Resul t Performing Organization Address [facility] Co de Phone Number [facility]# [id number] [address] [place] [address] * US EXT NON VASC LTD RT [...] is unchanged. DICTATION LOCATION: Location 1 - [facility] 11/26/2024 8:10 AM CDT MRI THORACIC [...] is unchanged. DICTATION LOCATION: Location 1 - [facility] Eyad Estrada MD MR ORDERABLES Final R esult * VANCOMYCIN LEVEL TROUGH (11/25/2024 7:45 PM CDT) Only the most recent of2 resultswithin the time period is included. VANCOMYCIN, TROUGH 13.6 10.0 - 17.0 ug/mL 11/25/2024 8:33 PM CDT [facility] Blood Venipuncture / Unknown 11/25/2024 7:45 PM CDT 11/25/2024 7:52 PM CDT Narrative [facility] - 11/25/2024 8:33 PM CDT Vancomycin Trough Therapeutic Range = 10.0 - 20.0 ug/mL Vancomycin Trough Toxic Level = >25.0 ug/mL Eyad Estrada MD CHEMISTRY ORDERABLES Fi nal Result Performing Organization Address [facility]/ZIP Co de Phone Number [facility] CLIA# [id number] [address] [place] [address] * PTT (11/23/2024 11:20 AM CDT) PTT 30.4 24.4 - 36.4 seconds 11/23/2024 12:17 PM CDT [facility] Comment: PTT Therapeutic Range: Heparin Level PTT (seconds) <0.10 units/mL <55.8 0.10 - 0.30 units/mL 55.8 - 74.3 0.30 - 0.70 units/mL* 74.3 - 111.2* 0.70 - 1.00 units/mL 111.2 - 138.9 *corresponds to therapeutic range for unfractionated heparin Blood Venipuncture / Unknown 11/23/2024 11:20 AM CDT 11/23/2024 11:54 AM CDT Eyad Estrada MD HEMATOLOGY ORDERABLES F inal Result Performing Organization Address City/[facility]/ZIP Co de Phone Number [facility] [employer] [facility]# [id number] [address] [place] [address] * ECHO COMPLETE - CONTRAST AND STRAIN IF INDICATED (11/23/2024 9:52 AM CDT) EJECTION FRACTION 65 INTERFACE SYSTEM 11/23/2024 9:29 AM CDT Narrative INTERFACE SYSTEM - 11/23/2024 11:30 AM CDT [address] [address] [email or web address] Transthoracic Echocardiogram Patient: Stacia May Study ID: ECHO COMPLETE - Gender: F : 1990 Age: 34 Race: K Height 149.9cm Study Date: 11/23/2024 Weight: 58.4kg Access. #: [id number] BP: *Referring Physician:Arnol Agosto Blair Elizabeth *Ordering Physician:* Eyad Estrada lime kiln worker: Nurse: Indications: Bradycardia STUDY CONCLUSIONS: SUMMARY: - [...] AM. Prepared and Electronically Authenticated Dale Arroyo [id number]:30:28 Procedure Note Dale Arroyo MD - 11/23/[address] [place] [address] [email or web address] [email or web address] Transthoracic Echocardiogram Patient: Stacia May Study ID: ECHO COMPLETE - Gender: F : 1990 Age: 34 Race: UNK Height 149.9cm Study Date: 11/23/2024 Weight: 58.4kg Access. #: [id number] BP: *Referring Physician:Arnol Agosto Blair Elizabeth *Ordering Physician:Eyad Sue lime kiln worker: Nurse: Indications: Bradycardia STUDY CONCLUSIONS: SUMMARY: - [...] AM. Prepared and Electronically Authenticated Dale Arroyo [id number]:30:28 us Eyad Estrada MD US ORDERABLES Final R esult INTERFACE SYSTEM Refer to clinic/hospital department * US DOPPLER VENOUS ARM BILATERAL (11/23/2024 9:09 AM CDT) Anatomical Region Laterality Modality Upper Extremity Ultrasound 11/23/2024 8:14 AM CDT Narrative 11/23/2024 6:00 PM CDT [address] [address] [email or web address] Venous Exam Complete Upper Extremity Duplex Patient: Stacia May Study ID: [id number] Gender: F : 1990 Age: 34 Race: CAU Height Study Date: 11/23/2024 Weight: Access. #: [id number] *Referring Physician:* Shane Ohara, Arnol Alex *Ordering Physician:Eyad Sue *Industrial Maintenance Electrician:Daniela Brown History: Swelling in the right upper [...] mm Prepared and Electronically Authenticated Jaylin Kohli [id number]:00:31 Procedure Note Jaylin Kohli MD - 11/23/2024 [address] [place] [address] [email or web address] Venous Exam Complete Upper Extremity Duplex Patient: Stacia May Study ID: [id number] Gender: F : 1990 Age: 34 Race: [facility] Height Study Date: 11/23/2024 Weight: Access. #: [id number] *Referring Physician:* Shane Ohara Blair Elizabeth *Ordering Physician:Eyad Sue *Industrial Maintenance Electrician:Daniela Brown History: Swelling in the right upper [...] mm Prepared and Electronically Authenticated Jaylin Kohli [id number]:00:31 Eyad Estrada MD US ORDERABLES Final R esult * (ABNORMAL) LACTATE DEHYDROGENASE (11/22/2024 4:56 AM CDT) Only the most recent of2 resultswithin the time period is included. LD (LACTATE DEHYDROGENASE) 251(H) 135 - 214 U/L 11/22/2024 5:48 AM CDT [facility] [employer] [facility] Blood Venipuncture / Unknown 11/22/2024 4:56 AM CDT 11/22/2024 5:06 AM CDT Lulú Rodriguez MD CHEMISTRY ORDERABLES Final Resu lt [facility] [employer] [facility] CLIA# [id number] [address] [place] [address] * HIV DETECTION W/REFLX CONFIRMATION (11/21/2024 5:46 PM CDT) Only the most recent of2 resultswithin the time period is included. [facility] HIV-1 AND 2 ABS AND HIV-1 AG Non-reacti ve Non-reacti ve 11/21/2024 7:08 PM CDT [facility] Blood Venipuncture / Unknown 11/21/2024 5:46 PM CDT 11/21/2024 6:24 PM CDT us Eyad Estrada MD CHEMISTRY ORDERABLES Fi nal Result [facility]# [id number] [address] [place] [address] * (ABNORMAL) BLOOD CULTURE MRSA/MSSA PCR PANEL (11/21/2024 4:23 PM CDT) [facility] MRSA/MSSA PCR Staph. aureus detected, methicillin resistant (MRSA)(A) No Staph aureus detected 11/22/2024 8:47 AM CDT [facility] Comment:In polymicrobial spe cimens, methicillin resistance [...] PM CDT 11/21/2024 4:42 PM CDT Narrative [facility] - 11/22/2024 8:47 AM CDT This test is intended for the detection of Staphylococcus aureus (SA) and methicillin-resistant Staphylococcus aureus (MRSA) DNA directly from positive blood cultures. This test was developed and its performance characteristics determined by [facility]. It has not been cleared by [place]. [...] MD MICROBIOLOGY - GENERAL ORDERABLES Final Result [facility] CLIA# [id number] [address] [facility] [place] [address] * (ABNORMAL) HEPATIC FUNCTION PANEL (11/21/2024 7:03 AM CDT) TOTAL PROTEIN 6.0(L) 6.7 - 8.6 g/dL 11/21/2024 10:47 AM CDT [facility] ALBUMIN 3.0(L) 3.5 - 5.2 g/dL 11/21/2024 10:47 AM CDT [facility] BILIRUBIN TOTAL 0.3 0.0 - 1.2 mg/dL 11/21/2024 10:47 AM T [facility] BILIRUBIN DIRECT <0.2 <0.4 mg/dL 11/22/19 25 10:47 AM T [facility] ALKALINE PHOSPHATASE 113(H) 35 - 104 U/L 11/21/2024 10:47 AM T [facility] AST 13 <33 U/L 11/21/2024 10:47 AM [facility] ALT 16 <34 U/L 11/21/2024 10:47 AM T [facility] Blood Venipuncture / Unknown 11/21/2024 7:03 AM CDT 11/21/2024 7:18 AM CDT [facility] LABORATORY [facility] - 11/21/2024 10:47 AM CDT Samples containing indocyanine green cause interferences on Total and/or Direct Bilirubin and must not be measured. us Lulú Rodriguez MD CHEMISTRY ORDERABLES Final Resu lt [facility] LABORATORY SERVICES [facility]# [id number] [address] [place] [address] * IR BIOPSY BONE MARROW (11/20/2024 3:22 PM CDT) Anatomical Region Laterality Modality X-Ray Angiograph y 11/20/2024 3:26 PM CDT Impressions 11/20/2024 4:14 PM CDT IMPRESSION: Fluoroscopic guided bone marrow ASPIRATION and BIOPSY. DICTATION LOCATION: Location [address] [place] [address] Narrative 11/20/2024 4:14 PM CDT FLUORO GUIDED [...] marrow ASPIRATION and BIOPSY. DICTATION LOCATION: Location [address] [place] [address] us Lulú Rodriguez MD IR ORDERABLES Final Result * BONE MARROW ASPIRATION & BIOPSY (11/20/2024 3:19 PM CDT) CASE REPORT Bone Marrow Pathology Report Case: [id number] Authorizing Provider: Fartun Lan MD Collected: 11/20/2024 03:19 PM Ordering Location: [facility] Surg Received: 11/20/2024 03:38 PM [facility] Pathologist: Adalgisa Bhagat MD Specimens: A) - Bone marrow, Core, left iliac B) - Bone marrow, Clot, left iliac C) - Bone marrow, left iliac D) - Peripheral Blood Smear E) - Bone marrow, left iliac 9:31 AM [facility] ADDENDUM 2 This addendum is issued to report the findings of MDS/CMML NexGen sequencing performed on the bone marrow aspirate at [facility]. Results: - SNVs/Indels: None detected - Pertinent negatives: No alterations detected in following genes: FLT3, IDH1, IDH2, NPM1, and TP53 No atypical myeloid clone was appreciated by normal chromosome analysis and NexGen sequencing studies, which argues against a diagnosis of myelodysplastic neoplasm or myeloproliferative neoplasm. The final diagnoses remain unchanged. 9:31 AM [facility] Addendum electronically signed by Adalgisa Bhagat MD on 12/04/2024 at 0931 CDT ADDENDUM 1 This addendum is issued to report the results of chromosome analysis, which shows a normal female karyotype: 46,XX[20]. Please see hyperlink below for scan of outside report. 9:31 AM [facility] Addendum electronically signed by Adalgisa Bhagat MD [...] or overt features of dyspoiesis 9:31 AM [facility] at 1542 CDT DIAGNOSIS COMMENT Noted is [...] will be reported in addenda. 9:31 AM [facility] GROSS DESCRIPTION The specimen is received in a container labeled Stacia Elirs and left iliac It consists of a 1.8 x 0.2 x 0.2 cm bone core which is entirely submitted in A1 after decalcification. A blood clot is prepared from the bone marrow aspirate and submitted in B1. A [id number] slide of the bone marrow aspirate is reviewed, and a portion of the bone marrow aspirate is submitted for flow cytometry. 9:31 AM [facility] MICROSCOPIC DESCRIPTION The slides are labeled [id number] and Stacia May. CBC indices (11/20/2024): WBC-16.3, [...] of mildly increased fibrosis (MF-1). 9:31 AM [facility] OPERATIVE PROCEDURE Bone marrow biopsy 9:31 AM [facility] CLINICAL INFORMATION Marked thrombocytopenia 9:31 AM [facility] IMMUNOPHENOTYPIC ANALYSIS Flow cytometric analysis performed on the bone marrow aspirate at [facility] shows 81% of the total events are [...] cytometry analysis (24 markers) is performed by [employer], [place], [place]. To view the report, click the link below. 9:31 AM [facility] COMMENT Special stain, immunohistochemical, and/or in situ hybridization results are interpreted with controls that demonstrate appropriate staining reactions. Note on use of immunohistochemistry reagents and in situ hybridization probes: These tests were developed and their performance characteristics determined by [facility], Department of Laboratory Medicine. It has not [...] part or completely in the following laboratories: [facility], CLIA #[id number] [address] [place] [address] [facility], CLIA #[id number] [address] [place] [address] [facility], CLIA #[id number] [address] [place] [address] This report was created with the Redfin voice-activated dictation system. Inherent to this system is the possibility of syntax, grammar, punctuation and other errors that could impact the interpretation of the report. If there are interpretative questions about aspects of this report, please contact the performing pathologist. 9:31 AM CDT [facility] Bone marrow ALL BONE MARROW / [...] PATHOLOGY/CYTOLOGY ORDERABLES Ed ited Result - Final [facility] CLIA# [id number] [address] [place] [address] * (ABNORMAL) CANCER ANTIGEN 19-9 (11/20/2024 2:49 PM CDT) CA 19-9 85(H) <36 U/mL 11/20/2024 7:54 PM CDT [facility] Blood Venipuncture / Unknown 11/20/2024 2:49 PM CDT 11/20/2024 2:53 PM CDT [facility] - 11/20/2024 7:54 PM CDT The concentration [...] ORDERABLES Fi nal Result Performing Organization Address [facility] Co de Phone Number [facility]# [id number] [address] [facility] [place] [address] * CANCER ANTIGEN 125 (11/20/2024 2:49 PM CDT) Pathologist [facility] CA 125 22.9 <35.0 U/mL 11/20/2024 3:52 PM CDT [facility] Blood Venipuncture / Unknown 11/20/2024 2:49 PM CDT 11/20/2024 2:53 PM CDT [facility] - 11/20/2024 3:52 PM CDT The concentration [...] ORDERABLES Fi nal Result Performing Organization Address City/[facility] Co de Phone Number [facility]# [id number] [address] [place] [address] * (ABNORMAL) CEA (11/20/2024 2:49 PM CDT) CEA 3.9(H) <3.9 ng/mL 11/20/2024 7:54 PM CDT [facility] Blood Venipuncture / Unknown 11/20/2024 2:49 PM CDT 11/20/2024 2:53 PM CDT Narrative [facility] - 11/20/2024 7:54 PM CDT Reference [...] ORDERABLES Fi nal Result Performing Organization Address [facility] Co de Phone Number [facility] CLIA# [id number] [address] [place] [address] * CT ABDOMEN PELVIS W CONTRAST (11/20/2024 [...] A secure chat message was sent in [employer] to Dr. Ohara at the time of [...] A secure chat message was sent in [employer] to Dr. Ohara at the time of dictation with confirmation of receipt. us Eyad Estrada MD CT ORDERABLES Final R esult * (ABNORMAL) ZINC LEVEL (11/20/2024 10:15 AM CDT) ZINC LEVEL 29(L) 60 - 130 mcg/dL 11/22/2024 9:48 PM CDT [facility] Comment: (Note) This test was developed and its analytical performance characteristics have been determined by [facility]. It has not been cleared or approved by the FDA. This assay has been validated pursuant to the CLIA regulations and is used for clinical purposes. [facility] [address] [address],[address] [facility] [address] Piero Avery MD, PhD Blood Venipuncture / Unknown 11/20/2024 10:15 AM CDT 11/20/2024 10:28 AM CDT Narrative [facility] - 11/22/2024 9:48 PM CDT Performing Organization Information: Site ID: [id number] Name: [facility] Address: [address] [place] [address], [address] [place] [phone] Director: Piero Avery MD,PhD Lulú Rodriguez MD CHEMISTRY ORDERABLES Final Resu lt Performing Organization Address [facility] Co de Phone Number [facility] [phone] * COPPER LEVEL (11/20/2024 10:15 AM CDT) COPPER LEVEL 125 70 - 175 mcg/dL 11/22/2024 9:48 PM CDT [facility] Comment: (Note) This test was developed and its analytical performance characteristics have been determined by [employer]. It has not been cleared or approved by the FDA. This assay has been validated pursuant to the CLIA regulations and is used for clinical purposes. [facility] [address] [place] [address],[address] [place] [address] Piero Avery MD, PhD Blood Venipuncture / Unknown 11/20/2024 10:15 AM CDT 11/20/2024 10:28 AM CDT Narrative [facility] - 11/22/2024 9:48 PM CDT Performing Organization Information: Site ID: [id number] Name: [facility] Address: [address] [place] [address], [address] [address] Director: Piero Avery MD,PhD Lulú Rodriguez MD CHEMISTRY ORDERABLES Final Resu lt Performing Organization Address [facility] Co de Phone Number [facility] [phone] * (ABNORMAL) URINALYSIS WITH REFLEX MICROSCOPIC (11/20/2024 12:23 AM CDT) COLOR UA Yellow Pale to Dark Yellow 11/20/2024 1:04 AM CDT [employer] LABORATORY SERVICES - [facility] CLARITY UA Cloudy(A) Clear 11/20/2024 1:04 AM [employer] LABORATORY SERVICES - [facility] SPECIFIC GRAVITY UA 1.016 1.003 - 1.035 11/20/2024 1:04 AM [facility] [employer] LABORATORY SERVICES - [facility] PH UA 6.0 5.0 - 8.0 11/20/2024 1:04 AM [facility] [employer] LABORATORY SERVICES - [facility] LEUKOCYTE ESTERASE UA 3+(A) Negative 11/20/2024 1:04 AM [facility] [employer] SERVICES - [facility] NITRITE UA Positive(A) Negative 11/20/2024 1:04 AM [facility] [employer] SERVICES - [facility] PROTEIN UA 1+(A) Negative 11/20/2024 1:04 AM [facility] [employer] [facility] GLUCOSE UA Negative Negative 11/20/2024 1:04 AM [facility] KETONES UA Negative Negative 11/20/2024 1:04 AM [facility] UROBILINOGEN UA Normal <2.0 mg/dL 1:04 AM [employer] LABORATORY SERVICES [facility] BILIRUBIN UA Negative Negative 11/20/2024 1:04 AM [facility] BLOOD UA 2+(A) Negative 11/20/2024 1:04 AM [employer] LABORATORY [facility] WBC UA >100(A) 0 - 2 /hpf 11/20/2024 1:04 AM [employer] LABORATORY SERVICES [facility] RBC UA 11-25(A) 0 - 2 /hpf 11/20/2024 1:04 AM [employer] [facility]ORATORY SERVICES [facility] BACTERIA UA 3+(A) Negative /hpf 11/20/2024 1:04 AM [employer] LABORATORY [facility] EPITHELIAL CELLS, URINE 0-5 0 - 5 /hpf 11/20/2024 1:04 AM [facility] [employer] [facility] WBC CLUMPS Present(A) Absent 11/20/2024 1:04 AM [facility] Urine URINE SPECIMEN OBTAINED BY CLEAN CATCH PROCEDURE / Unknown Collection / Unknown 11/20/2024 12:23 AM CDT 11/20/2024 12:28 AM CDT Aniya Galan DO URINE ORDERABLES Final Result Performing Organization Address [facility]/ZIP Co de Phone Number [facility] CLIA# [id number] [address] [place] [address] * (ABNORMAL) URINE CULTURE (11/20/2024 12:23 AM CDT) CULTURE METHICILLIN RESISTANT STAPHYLOCOCCUS AUREUS(A) LUCIAN MCG/ML 11/22/2024 9:39 AM CDT [facility] [employer] [facility] Urine URINE SPECIMEN OBTAINED BY CLEAN [...] MD MICROBIOLOGY - GENERAL ORDERABLES Final Result [facility] [employer] [facility] CLIA# [id number] [address] [place] [address] * (ABNORMAL) HCG QUALITATIVE, URINE (11/20/2024 12:21 AM CDT) HCG QUAL URINE Negative Negative 11/20/2024 1:05 AM CDT [facility] [employer] [facility] COLOR UA Yellow Pale to Dark Yellow 11/20/2024 1:05 AM CDT [facility] CLARITY UA Cloudy(A) Clear 11/20/2024 1:05 AM CDT [facility] LABORATORY [facility] Urine (Urine, straight in/out catheter) Collection / Unknown 11/20/2024 12:21 AM CDT 11/20/2024 12:27 AM CDT Aniya Galan DO URINE ORDERABLES Final Result [facility] CLIA# [id number] [address] [place] [address] * US VENOUS DOPPLER LEG BILATERAL (11/19/2024 10:13 AM CDT) Anatomical Region Laterality Modality Lower Extremity Ultrasound 11/19/2024 9:39 AM CDT Narrative 11/19/2024 12:13 PM [address]T [address] [address] [email or web address] Venous Exam Complete Lower Extremity Duplex Patient: Stacia May Study ID: [id number] Gender: F : 1990 Age: 34 Race: UNK Height Study Date: 11/19/2024 Weight: Access. #: [id number] *Referring Physician:* Shane Ohara Blair Elizabeth *Ordering Physician:* Aniya Galan *Industrial Maintenance Electrician:* Peggy Dunaway History: Swelling of both lower [...] mm Prepared and Electronically Authenticated Jaylin Kohli [id number]:22 Procedure Note Jaylin Kohli MD - 11/19/[address] [address] [email or web address] Venous Exam Complete Lower Extremity Duplex Patient: Stacia May Study ID: [id number] Gender: F : 1990 Age: 34 Race: UNK Height Study Date: 11/19/2024 Weight: Access. #: [id number] *Referring Physician:* Shane Ohara, Arnol Alex *Ordering Physician:* Aniya GalanIndustrial Maintenance Electrician:* Peggy Dunaway History: Swelling of both lower [...] mm Prepared and Electronically Authenticated Jaylin Kohli [id number]:22 us Aniya Galan DO US ORDERABLES Final Result * (ABNORMAL) T4 FREE (11/18/2024 5:42 AM CDT) Only the most recent of2 resultswithin the time period is included. T4 FREE 1.93(H) 0.90 - 1.70 ng/dL 11/18/2024 7:03 AM CDT [facility] LABORATORY [facility] Blood Venipuncture / Unknown 11/18/2024 5:42 AM CDT 11/18/2024 5:50 AM CDT us Aniya Galan DO CHEMISTRY ORDERABLES F inal Result [facility] [employer] [facility] CLIA# [id number] [address] [address] * (ABNORMAL) DIC PROFILE (11/17/2024 10:15 AM CDT) Only the most recent of2 resultswithin the time period is included. PROTIME 13.8 12.7 - 15.1 Seconds 11/17/2024 10:43 AM T [facility] [employer] [facility] INR 1.1 0.9 - 1.1 11/17/2024 10:43 AM T [facility] [employer] [facility] Comment: INR Therapeutic Range: Adult: 2.0 - 3.0 for pulmonary embolism or prophylaxis against venous thrombosis or systemic embolization. 2.0 - 3.0 for patients with tissue heart valves. 2.5 - 3.5 for patients with mechanical heart valves or post UT. Pediatric (12 years and under): 1.5 - 3.0 Although the target range in children is not well established, INR values of 1.5 - 3.0 are recommended for most patients. Higher values have been used in children with prosthetic cardiac valves and hereditary clotting disorders. (<3 days) therapeutic ranges have not been established PTT 48.7(H) 24.4 - 36.4 seconds 11/17/2024 10:43 AM [facility] [employer] [facility] Comment: PTT Therapeutic Range: Heparin Level PTT (seconds) <0.10 units/mL <55.8 0.10 - 0.30 units/mL 55.8 - 74.3 0.30 - 0.70 units/mL* 74.3 - 111.2* 0.70 - 1.00 units/mL 111.2 - 138.9 *corresponds to therapeutic range for unfractionated heparin FIBRINOGEN 802(H) 205 - 450 mg/dL 11/17/2024 10:43 AM CDT [facility] D-DIMER QUANT 1.09(H) <0.50 ug/mL FEU 11/17/2024 10:43 AM CDT [facility] Comment: The DIC reference range is [...] Rodriguez MD HEMATOLOGY ORDERABLES Final Res ult [facility]# [id number] [address] [place] [address] * (ABNORMAL) EBV ANTIBODY PANEL (11/17/2024 10:15 AM CDT) Pathologist [facility] EBV IGM, VCA <36.00 U/mL 11/19/2024 3:07 PM CDT [facility] Comment: U/mL Interpretation ---- <36.00 Negative 36.00-43.99 Equivocal >43.99 Positive EBV IGG, VCA 162.00(H) U/mL 11/19/2024 3:07 PM CDT [facility] Comment: U/mL Interpretation ---- <18.00 Negative 18.00-21.99 Equivocal >21.99 Positive EBV NUC IGG 38.60(H) U/mL 11/19/2024 3:07 PM CDT [facility] Comment: U/mL Interpretation ---- <18.00 Negative 18.00-21.99 Equivocal >21.99 Positive EBV INTERP: SEE COMMENT 11/19/2024 3:07 PM CDT [facility] Comment: 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 In infants, a similar pattern may occur as a result of passive maternal transfer of antibody. Blood Venipuncture / Unknown 11/17/2024 10:15 AM CDT 11/17/2024 10:23 AM CDT Narrative [facility] - 11/19/2024 3:07 PM CDT Performing Organization Information: Site ID: [place] Name: [facility] Address: [address] [facility] [place] [address] Director: Jazmyne Ferrell MD us Lulú Rodriguez MD CHEMISTRY ORDERABLES Final Resu lt [facility] [phone] * CMV IGG AND IGM ANTIBODIES (11/17/2024 10:15 AM CDT) CMV IGG <0.60 U/mL 11/19/2024 3:07 PM CDT [facility] Comment: U/mL Interpretation ----- <0.60 Negative 0.60-0.69 Equivocal > or = 0.70 Positive A positive result indicates that the patient has antibody to CMV. It does not differentiate between an active or past infection. CMV IGM <30.00 AU/mL 11/19/2024 3:07 PM CDT [facility] Comment: AU/mL Interpretation ----- <30.00 No [...] 10:23 AM CDT Narrative [facility] - 11/19/2024 3:07 PM CDT Performing Organization Information: Site ID: [place] Name: [facility] Address: [address] [place] [address] Director: Jazmyne Ferrell MD Lulú Rodriguez MD CHEMISTRY ORDERABLES Final Resu Performing Organization Address City/[facility]/ZIP Co de Phone Number [employer] [facility] [phone] * HEPATITIS B CORE AB TOTAL (11/16/2024 4:00 PM CDT) Pathologist [facility] HEPATITIS B CORE AB TOTAL Non-react geraldine Non-react geraldine 11/17/2024 11:25 AM CDT [facility] Comment:Antibodies to HBc we re not detected; does not exclude the possibility of exposure to HBV. Blood Venipuncture / Unknown 11/16/2024 4:00 PM CDT 11/16/2024 4:04 PM CDT Lulú Rodriguez MD CHEMISTRY ORDERABLES Final Resu Performing Organization Address [facility]/ZIP Co de Phone Number [facility] CLIA # [id number] [address] [address] [place] [address] * CARDIOLIPIN IGG/IGM (11/16/2024 4:00 PM CDT) Pathologist [facility] CARDIOLIPIN IGG AB <2.0 GPL-U/mL 2024 12:02 PM CDT [facility] Comment: Value Interpretation ----- < 20.0 Antibody not detected > or = 20.0 Antibody detected CARDIOLIPIN IGM AB <2.0 MPL-U/mL 2024 12:02 PM CDT [facility] Comment: Value Interpretation ----- < 20.0 Antibody [...] aging. For additional information, please refer to http://education.[employer]/faq/BSM170 (This link is being provided for informational/ educational purposes only.) Blood Venipuncture / Unknown 11/16/2024 4:00 PM CDT 11/16/2024 4:04 PM CDT Narrative [facility] - 11/19/2024 12:02 PM CDT Performing Organization Information: Site ID: Name: [facility] Address: [address] [place] [phone] Director: Shantanu Rodriguez us Lulú Rodriguez MD CHEMISTRY ORDERABLES Final Resu lt [facility] [phone] * HEPATITIS B SURFACE ANTIGEN (11/16/2024 4:00 PM CDT) HEPATITIS B SURFACE AG NON-REACT GERALDINE Non-react geraldine 11/16/2024 5:01 PM CDT [facility] Comment:A non-reactive test result does not exclude the possibility of exposure to or infection with hepatitis B. Blood Venipuncture / Unknown 11/16/2024 4:00 PM CDT 11/16/2024 4:04 PM CDT Lulú Rodriguez MD CHEMISTRY ORDERABLES Final Resu lt [facility] CLIA# [id number] [address] [place] [address] * (ABNORMAL) VITAMIN C LEVEL (11/16/2024 4:00 PM CDT) VITAMIN C <0.1(L) 0.3 - 2.7 mg/dL 11/23/2024 3:13 AM CDT [facility] Comment: This test was developed and its analytical performance characteristics have been determined by [facility] [place], [place]. It has not been cleared or approved by the FDA. This assay has been validated pursuant to the CLIA regulations and is used for clinical purposes. Blood Venipuncture / Unknown 11/16/2024 4:00 PM CDT 11/16/2024 4:04 PM CDT Narrative [facility] - 11/23/2024 3:13 AM CDT Performing Organization Information: Site ID: AMD Name: [facility] Address: [address] [place] [address] [place] [address] Director: Chapin Guerrier M.D.,PhD us Aniya Galan DO CHEMISTRY ORDERABLES F inal Result [facility] [phone] * HEPATITIS C ANTIBODY W REFLEX (11/16/2024 4:00 PM CDT) HEPATITIS C AB NON-REACT GERALDINE Non-react geraldine 11/16/2024 5:01 PM CDT [facility] Comment:Antibodies to HCV we re not detected, does not exclude the possibility of exposure to HCV. Blood Venipuncture / Unknown 11/16/2024 4:00 PM CDT 11/16/2024 4:04 PM CDT Lulú Rodriguez MD CHEMISTRY ORDERABLES Final Resu lt [facility] CLIA# [id number] [address] [facility] [place] [address] * (ABNORMAL) LUPUS ANTICOAGULANT W/REFLEX CONFIRMATION (11/16/2024 4:00 PM CDT) BASELINE [place] PTT 55.4(H) 24.8 - 37.2 sec 11/20/2024 8:42 AM CDT [facility] DRVVT SCREEN 60.0(H) 28.2 - 46.5 sec 11/20/2024 8:42 AM CDT [facility] DRVVT SCREEN RATIO 1.46(H) <=1.21 11/20/2024 8:42 AM CDT [facility] DRVVT NORMALIZED RATIO 1.02 <=1.12 11/20/2024 8:42 AM CDT [facility] HEXAGONAL PHASE CONFIRM (Staclot [place]) 17.6(H) <=5.0 sec 11/20/2024 8:42 AM CDT [facility] LUPUS ANTICOAGULANT INTERP See Interpretation Below 11/20/2024 8:42 AM CDT [facility] INTERPRETED BY: Anthony Montalvo MD 8:42 AM CDT [facility] Blood Venipuncture / Unknown 11/16/2024 4:00 PM CDT 11/16/2024 4:03 PM CDT Narrative [facility] - 11/20/2024 8:42 AM CDT Interpretation: Positive [...] Thrombosis and Haemostasis, Volume 18, Issue 11, 9424 - 3354 Lulú Rodriguez MD HEMATOLOGY ORDERABLES Final Res ult [id number] [address] [place] [address] * (ABNORMAL) PTT MIXING TEST (11/16/2024 4:00 PM CDT) Pathologist [facility] PTT 55.4(H) 24.8 - 37.2 seconds 11/21/2024 3:10 PM CDT [facility] PTT, PLASMA MIX 1:1 47.2(H) 24.8 - 37.2 seconds 11/21/2024 3:10 PM CDT [facility] PTT MIXING STUDY INTERP See Interpretation Below 11/21/2024 3:10 PM CDT [facility] INTERPRETED BY: Anthony Montalvo MD 11/21/2024 3:10 PM CDT [facility] Blood Venipuncture / Unknown 11/16/2024 4:00 PM CDT 11/16/2024 4:04 PM CDT Narrative [facility] - 11/21/2024 3:10 PM CDT PTT Mixing [...] Haemostasis. Journal of Thrombosis and Haemostasis, 2020 Dec;18(11):5321-4640. PMID: [id number]. Anticoagulant drugs that act as coagulation inhibitors [...] Rodriguez MD HEMATOLOGY ORDERABLES Final Res ult [facility] CLIA # [id number] [address] [place] [address] * (ABNORMAL) FACTOR VIII ASSAY (11/16/2024 4:00 PM CDT) Pathologist [facility] FACTOR VIII ACTIVITY, CLOTTING 259(H) 50 - 180 % normal 11/20/2024 10:21 PM CDT [facility] Comment: For additional information please refer to: http://education.Reunify/faq/EBF611 (This link is being provided for informational/ educational purposes only.) Blood Venipuncture / Unknown 11/16/2024 4:00 PM CDT 11/16/2024 4:03 PM CDT Narrative [facility] - 11/20/2024 10:21 PM CDT Performing Organization Information: Site ID: AMD Name: [facility] Address: [address] [place] [address] [place], [place] Director: Chapin Guerrier M.D.,PhD Lulú Rodriguez MD HEMATOLOGY ORDERABLES Final Res ult [facility] [phone] * (ABNORMAL) VITAMIN B1 LEVEL (11/16/2024 4:00 PM CDT) [facility] VITAMIN B1 65(L) 78 - 185 nmol/L 11/21/2024 8:38 PM CDT [facility] Comment: (Note) Vitamin supplementation within 24 hours prior to blood draw may affect the accuracy of the results. This test was developed and its analytical performance characteristics have been determined by [facility]. It has not been cleared or approved by FDA. This assay has been validated pursuant to the CLIA regulations and is used for clinical purposes. [facility] [address] [address],[address] [facility] [address] Piero Avery MD, PhD Blood Venipuncture / Unknown 11/16/2024 4:00 PM CDT 11/16/2024 4:04 PM CDT Narrative [facility] - 11/21/2024 8:38 PM CDT Performing Organization Information: Site ID: [id number] Name: [facility] Address: [address] [place] [address], [address] [place] [phone] Director: Piero Avery MD,PhD us Aniya Galan DO CHEMISTRY ORDERABLES F inal Result Performing Organization Address [facility]/ZIP Co de Phone Number [facility] [phone] * (ABNORMAL) VITAMIN B6 LEVEL (11/16/2024 4:00 PM CDT) VITAMIN B6 <2.0(L) 2.1 - 21.7 ng/mL 11/21/2024 12:13 PM CDT [facility] Comment: (Note) Vitamin supplementation within 24 hours prior to blood draw may affect the accuracy of results. This test was developed and its analytical performance characteristics have been determined by [facility]. It has not been cleared or approved by the FDA. This assay has been validated pursuant to the CLIA regulations and is used for clinical purposes. [facility] [address] [place] [address],[address] [place] [address] Piero Avery MD, PhD Blood Venipuncture / Unknown 11/16/2024 4:00 PM CDT 11/16/2024 4:04 PM CDT Narrative [facility] - 11/21/2024 12:13 PM CDT Performing Organization Information: Site ID: [id number] Name: [facility] Address: [address] [place] [address], [address] [place] [phone] Director: Piero Avery MD,PhD Aniya Galan DO CHEMISTRY ORDERABLES F inal Result [facility] [phone] * TRANSFUSE PLATELETS (11/16/2024 1:35 PM CDT) Christos Lindsey MD BLOOD TRANSFUSION ORDERABLES Fi nal Result [...] DIAGNOSTIC IMAGING ORD ERABLES Final Result * [id number] EVALUATION (11/16/2024 4:17 AM CDT) FKEZEI55 ACTIVITY 82 >=70 % 025 10:51 AM CDT [facility] Comment: ADDITIONAL INFORMATION This test was developed and its performance characteristics determined by [facility] in a manner consistent with CLIA requirements. This test has not been cleared or approved by the U.S. Food and Drug Administration. [id number] INTERP SEE COMMENTS 11/18/2024 10:51 AM CDT [facility] Comment: Normal UQOJRJ34 activity makes autoimmune TTP less likely, therefore JSUSWC00 Inhibitor Titer was not performed. A normal MCGVLR81 activity level does not completely exclude a clinical diagnosis of thrombotic thrombocytopenic purpura (TTP). Note: recent plasma infusion or plasma exchange may raise GZOBNO11 levels above patient's baseline. Recommend clinical correlation. Non-specific substrate proteolysis by other plasma proteases or recent plasma transfusion or plasma exchange may falsely raise DMHFDO95 activity. Markedly elevated endogenous von Willebrand factor (VWF), hyperlipidemia, hyperbilirubinemia (greater than 6mg/dL) may falsely lower CZPGYR29 activity. Test Performed by: [facility] [place] [address] Type Inspector: Rae Rausch Ph.D.; CLIA# [id number] Blood Venipuncture / Unknown 11/16/2024 4:17 AM CDT 11/16/2024 4:26 AM CDT us Christos Lindsey MD HEMATOLOGY ORDERABLES Final Res ult [facility] * VERIFICATION BLOOD GROUP (11/16/2024 4:16 AM CDT) ABO GROUP O 11/16/2024 8:39 AM CDT [facility] -- [facility] RH (D) TYPE Positive 11/16/2024 8:39 AM CDT [facility] -- [facility] Blood Venipuncture / Unknown 11/16/2024 4:16 AM CDT 11/16/2024 8:09 AM CDT Lorena Vigil MD BLOOD BANK ORDERABLES Final Result Performing Organization Address City/[facility]/ZIP Co de Phone Number [facility] [employer] [facility] CLIA# [id number] [facility] [place] [place] [address] * PERIPHERAL BLOOD SMEAR PATHOLOGY INTERP (11/16/2024 4:16 AM CDT) PERIPHERAL BLOOD SMEAR INTERP See Pathology Report to Follow 11/16/2024 5:22 AM CDT [facility] SERVICES - [facility] Blood Venipuncture / Unknown 11/16/2024 4:16 AM CDT 11/16/2024 4:26 AM CDT Christos Lindsey MD HEMATOLOGY ORDERABLES Final Res [facility] [id number] [place] [address] * PATHOLOGY (11/16/2024 4:16 AM CDT) CASE REPORT Surgical Pathology Report Case: [id number] Authorizing Provider: Christos Lindsey MD Collected: 11/16/2024 04:16 AM Ordering Location: [facility] Received: 11/16/2024 06:17 AM Neurosurgery Pathologist: Adalgisa Bhagat MD Specimen: Peripheral Blood Smear 12:03 PM T [facility] FINAL DIAGNOSIS Peripheral blood, morphologic review: - Mild normocytic anemia with no overt features of hemolysis - Leukocytosis with absolute neutrophilia and reactive changes - Marked thrombocytopenia - No circulating blasts or overt features of dyspoiesis 12:03 PM T [facility] at 1202 CDT DIAGNOSIS COMMENT Neutrophilia [...] clinical findings is suggested. 12:03 PM CDT [facility] MICROSCOPIC DESCRIPTION The slides are labeled [id number] and Stacia May. Review of the peripheral [...] with unremarkable morphology. 5 12:03 PM CDT [facility] CLINICAL INFORMATION Thrombocytopenia 12:03 PM CDT [facility] COMMENT Special stain, immunohistochemical, and/or in situ hybridization results are interpreted with controls that demonstrate appropriate staining reactions. Note on use of immunohistochemistry reagents and in situ hybridization probes: These tests were developed and their performance characteristics determined by [facility], Department of Laboratory Medicine. It has not [...] part or completely in the following laboratories: [facility], CLIA #[id number] [address] [place] [address] [facility], CLIA #[id number] [address] [place] [address] [facility], CLIA #[id number] [address] [place] [address] 12:03 PM CDT [facility] Tissue (Peripheral Blood Smear) 11/16/2024 4:16 AM CDT 11/16/2024 6:17 AM CDT us Christos Lindsey MD PATHOLOGY/CYTOLOGY ORDERABLES F inal Result [facility] CLIA# [id number] [address] [place] [address] * (ABNORMAL) VITAMIN B12 AND FOLATE (11/16/2024 4:16 AM CDT) VITAMIN B12 >2,000(H) 232 - 1,245 pg/mL 11/16/2024 5:22 AM CDT [facility] Comment:It has been reported that between 5 to 10% of patients with values between 200 and 400 pg/mL may experience neuropsychiatric and hematologic abnormalities due to occult B12 deficiency. Less than 1% of patients with values above 400 pg/mL will have symptoms. FOLATE, SERUM 3.8(L) >4.5 ng/mL 11/16/2024 5:22 AM CDT [facility] Blood Venipuncture / Unknown 11/16/2024 4:16 AM CDT 11/16/2024 4:26 AM CDT Christos Lindsey MD CHEMISTRY ORDERABLES Final Resu lt Performing Organization Address [facility] de Phone Number [facility] CLPA# [id number] [address] [place] [address] * VITAMIN D 25 HYDROXY (11/16/2024 4:16 AM CDT) [facility] VITAMIN D TOTAL (25OH) 97 30 - 100 ng/mL 11/16/2024 10:24 AM T [facility] Blood Venipuncture / Unknown 11/16/2024 4:16 AM CDT 11/16/2024 4:26 AM CDT Narrative [facility] - 11/16/2024 10:24 AM CDT Interpretive Data Chart: Deficient: 0 - 20 ng/mL Insufficient: 21 - 29 ng/mL Sufficient: 30 - 100 ng/mL Increased Risk of Hypercalciuria: >100 ng/ml Toxic: >150 ng/ml Aniya Galan DO CHEMISTRY ORDERABLES F inal Result Performing Organization Address [facility] Co de Phone Number [facility] CLIA# [id number] [address] [place] [address] * (ABNORMAL) SEDIMENTATION RATE (11/16/2024 4:16 AM CDT) Pathologist [facility] ESR (SEDIMENTATION RATE) 92(H) <=20 mm/Hr 11/16/2024 4:57 AM CDT [facility]ORY [facility] Blood Venipuncture / Unknown 11/16/2024 4:16 AM CDT 11/16/2024 4:26 AM CDT Christos Lindsey MD HEMATOLOGY ORDERABLES Final Res ult [facility] CLIA# [id number] [address] [place] [address] * (ABNORMAL) RETICULOCYTES (11/16/2024 4:16 AM CDT) [facility] RETICULOCYTES 0.6(L) 0.7 - 2.9 % 11/16/2024 4:38 AM CDT [facility] IMMATURE RETIC FRACTION 8.3 3.0 - 18.0 % 11/16/2024 4:38 AM CDT [facility] RETICULOCYTE, ABSOLUTE 0.0200 10e6/uL 11/16/2024 4:38 AM CDT [facility] Blood Venipuncture / Unknown 11/16/2024 4:16 AM CDT 11/16/2024 4:26 AM CDT Christos Lindsey MD HEMATOLOGY ORDERABLES Final Res ult [facility] CLIA# [id number] [address] [place] [address] * MAIA SCREEN W/REFLEX (11/16/2024 4:16 AM CDT) Pathologist [facility] MIAA SCREEN NEGATIVE NEGATIVE 11/19/2024 3:51 PM CDT [facility] Comment: MAIA IFA is a first line [...] AC-0: Negative International Consensus on MAIA Patterns (https://doi.org/10.1515/eoif-6180-9781) For additional information, please refer to http://education.Chat Sports/faq/TSL238 (This link is being provided for informational/ educational purposes only.) Blood Venipuncture / Unknown 11/16/2024 4:16 AM CDT 11/16/2024 4:26 AM CDT Narrative [facility] - 11/19/2024 3:51 PM CDT Performing Organization Information: Site ID: [place] Name: [facility] Address: [address] [place] [address] Director: Jazmyne Ferrell MD Christos Lindsey MD CHEMISTRY ORDERABLES Final Resu lt Performing Organization Address City/[facility]/ZIP Co de Phone Number [facility] [phone] * T3 FREE (11/16/2024 4:16 AM CDT) T3 FREE 2.0 2.0 - 4.4 pg/mL 11/16/2024 5:11 AM CDT [facility] [employer] [facility] Blood Venipuncture / Unknown 11/16/2024 4:16 AM CDT 11/16/2024 4:26 AM CDT Christos Lindsey MD CHEMISTRY ORDERABLES Final Resu lt Performing Organization Address [facility]/ZIP Co de Phone Number [facility] [employer] [facility] CLIA# [id number] [address] [place] [address] * (ABNORMAL) TSH (11/16/2024 4:16 AM CDT) TSH <0.01(L) 0.27 - 4.20 uIU/mL 11/16/2024 5:11 AM CDT [facility] Blood Venipuncture / Unknown 11/16/2024 4:16 AM CDT 11/16/2024 4:26 AM CDT Christos Lindsey MD CHEMISTRY ORDERABLES Final Resu lt [facility] [employer] [facility] CLIA# [id number] [address] [place] [address] * HEMOGLOBIN A1C (11/16/2024 4:16 AM CDT) Pathologist [facility] HEMOGLOBIN A1C 5.2 <5.7 % 11/16/2024 4:49 AM CDT [facility] [employer] [facility] EST. AVG GLUCOSE, A1C 103 mg/dL 11/16/2024 4:49 AM CDT [facility] [employer] [facility] Blood Venipuncture / Unknown 11/16/2024 4:16 AM CDT 11/16/2024 4:26 AM CDT Narrative [facility] - 11/16/2024 4:49 AM CDT HGB A1C INTERPRETATION NORMAL: <5.7% PRE-DIABETES: 5.7 - 6.4% DIABETES: 6.5% OR GREATER Christos Lindsey MD CHEMISTRY ORDERABLES Final Resu lt [facility] [employer] [facility] CLIA# [id number] [address] [place] [address] * (ABNORMAL) HAPTOGLOBIN (11/16/2024 4:16 AM CDT) HAPTOGLOBIN 239(H) 30 - 200 mg/dL 11/16/2024 7:39 AM CDT [employer] [facility] Blood Venipuncture / Unknown 11/16/2024 4:16 AM CDT 11/16/2024 7:22 AM CDT Lulú Rodriguez MD CHEMISTRY ORDERABLES Final Resu lt [facility]ORY SERVICES - [facility] CLIA# [id number] [address] [facility] [place] [place] [address] * (ABNORMAL) COMPREHENSIVE METABOLIC PANEL (11/16/2024 4:16 AM CDT) Pathologist [facility] SODIUM 143 136 - 145 mmol/L 11/16/2024 5:11 AM [facility] [employer] [facility] [place] POTASSIUM 3.0(L) 3.5 - 5.0 mmol/L 11/16/2024 5:11 AM [facility] [employer] [facility] - [facility] CHLORIDE 101 98 - 107 mmol/L 11/16/2024 5:11 AM T [facility] - [facility] CO2 30(H) 22 - 29 mmol/L 11/16/2024 5:11 AM T [employer] [facility] CALCIUM 9.9 8.6 - 10.2 mg/dL 11/16/2024 5:11 AM T [facility] - [facility] BUN 18 6 - 20 mg/dL 11/16/2024 5:11 AM T [facility] [employer] LAB[facility] - [facility] CREATININE 1.11(H) 0.51 - 0.95 mg/dL 11/16/2024 5:11 AM T [facility] - [facility] GLUCOSE 91 74 - 99 mg/dL 11/16/2024 5:11 AM T [employer] [facility] - [facility] TOTAL PROTEIN 5.9(L) 6.7 - 8.6 g/dL 11/16/2024 5:11 AM T [employer] [facility] - [facility] ALBUMIN 2.7(L) 3.5 - 5.2 g/dL 11/16/2024 5:11 AM [facility] [employer] [facility] - [facility] BILIRUBIN TOTAL 0.7 0.0 - 1.2 mg/dL 11/16/2024 5:11 AM CDT [facility] LAB[facility]ATORY SERVICES - [facility] ALKALINE PHOSPHATASE 153(H) 35 - 104 U/L 11/16/2024 5:11 AM CDT [facility] [place] AST 19 <33 U/L 11/16/2024 5:11 AM CDT [facility] - [facility] [place] ALT 10 <34 U/L 11/16/2024 5:11 AM T [facility] LABORATORY SERVICES - . [facility] GFR >60 >=60 mL/min/1.7 3 sq meter 11/16/2024 5:11 AM T [facility] SERVICES - [facility] Comment:eGFR calculated with 2020 CKD-EPI equation. Vegetarian diet, extremely high or low muscle mass, and may affect results. Cystatin C with Glomerular Filtration Rate is a suitable alternative for these patients. ANION GAP 12 8 - 16 mmol/L 11/16/2024 5:11 AM T [facility] LAB[facility]ATORY SERVICES [facility] Blood Venipuncture / Unknown 11/16/2024 4:16 AM CDT 11/16/2024 4:26 AM CDT Narrative [facility] - [facility] - 11/16/2024 5:11 AM CDT Samples containing indocyanine green cause interferences on Total and/or Direct Bilirubin and must not be measured. Christos Lindsey MD CHEMISTRY ORDERABLES Final Resu lt [facility] [employer] SERVICES [facility]# [id number] [address] [facility] [address] [place] [address] * PREPARE PLATELETS (11/16/2024 12:35 AM CDT) COMPONENT TYPE [id number] [facility] COMPONENT IDENTIFICATION [id number] [facility] -- [facility] UNIT ABO A [facility] UNIT RH POS [facility] -- [facility] COMPONENT STATUS Transfused ME [facility] -- [facility] COMPONENT EXPIRATION DATE/TIME [id number] [facility] -- [facility] COMPONENT CODING SYSTEM 6200 [facility] -- [place] VOLUME, BLOOD PRODUCT 582 [facility] Other, specify 11/16/2024 12 :35 AM CDT Christos Lindsey MD LAB TRANSFUSION ORDERABLES Edit ed Result - Final [facility] CLIA# [id number] [address] [place] [address] from Last 3 Months Additional Health Concerns Infection Onset Date Last Indicated MRSA 11/20/2024 11/26/2024 Insurance MEDICAID RX [employer] Commercial Advance Directives For more information, please contact: [phone] * Full Code (Latest Code Status on File) Date Activated Date Inactivated Comments 11/16/2024 12:35 AM 12/04/2024 3:14 PM Care Teams Radio Maintainer Relationship Specialty Start Date End Date Rich Castillo MD [address] [place] [phone] PCP - General Family Practice 11/16/24
--- OUTSIDE RECORDS SUMMARY | 2024-12-07 12:08 | XMS_ITS | Encounter Summary ---
Author Organization Address [address] [place] [address] Care Team Providers Care Tube Test Technician Name Role Phone Rich Castillo MD Primary Care Provider [phone] Encounter Details Date Type Department Care Team (Late st Contact Info) Description 12/06/[address] [facility] INFECTIOUS DISEASE TOWER B [address] [place] [address] Ej Bhatt MD [address] [place] [address] Social History Tobacco Use Types [...] worry about transportation for future doctor visits, pick up driver medication, etc.? 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 Office Visit [facility] Gynecologic Oncology Liang [address] [facility] [address] [place] [address] Lena Eng, DO [address] [facility] [address] [place] [address] 03/05/2025 10:15 AM HONING MACHINE OPERATOR SEMIAUTOMATIC Office Visit [facility] Oncology and Hematology [facility] [address] [address] [place]ú [place] [address] [address] documented as of this encounter Visit Diagnoses Not on filedocumented in this encounter Additional Health Concerns Infection Onset Date Last Indicated Resolved Time MRSA 11/20/2024 11/26/2024 documented as of this encounter Care Teams Tube Test Technician Relationship Specialty Start Date End Date Rich Castillo MD [address] [facility] [address] [phone] PCP - General Family Practice 11/16/24 documented as of this encounter
--- OUTSIDE RECORDS SUMMARY | 2024-12-07 12:08 | XMS_ITS ---
Author Organization [facility] Address [address] [place] [address] Care Team Providers Care Cardiovascular Technician Name Role Phone Rich Castillo MD Primary Care Provider [phone] Anti-Infective Status:Closed (Closed) Start date:11/28/2024 Enrollment date:11/28/2024 End date:12/06/2024 Close reason:Transferred to Another Entity Related program episode:Home Infusion (Closed) Overview Option Care Continued Care and Services Coordination
--- OUTSIDE RECORDS SUMMARY | 2024-12-07 12:08 | XMS_ITS | Encounter Summary ---
Author Organization [facility] Address Critical access hospital[address] [place] [address] Care Team Providers Care Lead Clinical Research Coordinator Name Role Phone Irina You KENZIE Primary Care Provider [phone] Corky Leos MD Unavailable [phone] Encounter Details Date Type Department Care Team (Late st Contact Info) Description 12/15/2018 [facility] at [address] [address] Devan Reyes MA Social History Tobacco Use [...] documented as of this encounter Care Teams Lead Clinical Research Coordinator Relationship Specialty Start Date End Date Irina You FNP [address] [place] [address] PCP - General Nurse Practitioner Family 02/03/18 Corky Leos MD Three [address] [address] Frankie Dental Technician CARDIOVASCULAR DISEASE 11/23/18 documented as of this encounter
--- OUTSIDE RECORDS SUMMARY | 2024-12-07 12:09 | XMS_ITS | Encounter Summary ---
Author Organization [facility] Healthcare Address [address] [place] [address] Care Team Providers Care Collarette Separator Name Role Phone Irina You NP Primary Care Provider [phone] Abi Romo Primary Care Provider [phone] Rich Castillo MD Primary Care Provider [phone] Josefa White RN Unavailable [phone] Encounter Details Date Type Department Care Team (Late st Contact Info) Description 09/11/2019 Telephone [facility] [place] [address] Clark Blanco MD [address] [place], [place] [id number] Social History Tobacco Use Types Packs/Day Years [...] COVID: Suspected 02/03/2022 02/03/2022 02/03/2022 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
== END 2024-12-07 12:22 | disposition home or self-care (01) ==
PROVIDERS: Emergency Provider Nurse Practitioner Family
DX: Z45.2 Encounter for adjustment and management of vascular access device (principal)
CPT/HCPCS: 71045; 99283